=== PATIENT | male | born 1940 | race Caucasian/White ===

== ENCOUNTER 2017-12-13 07:42 | Emergency (ER) | payer MEDICARE, OTHER, SELFPAY ==
[2017-12-13] VITALS (18 sets, daily range): BP systolic 95–132; BP diastolic 53–70; PULSE 44–73; RESP 11–22; TEMP 36.5–36.8; O2SAT 94–100
--- NOTE | 2017-12-13 08:07 | DI.RAD_ITS ---
SYMPTOMS/DIAGNOSIS: CHEST PAIN AP PORTABLE CHEST: The lungs are free of infiltrate. There is no pleural effusion. The cardiovascular structures are intact. SUMMARY: There is no evidence of acute cardiopulmonary disease.
--- NOTE | 2017-12-13 08:07 | W.ED.GENAD ---
Discharge Plan Disposition Patient Disposition: [facility] Condition: Critical Discharge Details Chief Complaint: Chest Pain Clinical Impression: ST elevation (STEMI) myocardial infarction Primary Care Provider: Nabil Christianson ED Provider: Vishal Blevins Home Meds and New Rx's Prescriptions: No Action zinc 50 MG tablet 50 mg PO DAILY RF: 0 Discharge Data Discharge Date/Time-TO BE ENTERED AT DEPARTURE: 12/13/17 09:07 Medical Decision Making 8:15 -- ecg reviewed and patient pt seen immediately on my arrival to the emergency department at 8 AM. Patient in critical condition. Patient is normotensive and bradycardic 77-year-old male with family history of heart disease, notes his mother from heart disease in her 70s, former smoker, here with chest pain that started around 715 this morning. Pain is located in his left chest and feels like a dull ache. It is mild intensity. He had associated diaphoresis. ECG reviewed and interpreted by me: Market sinus bradycardia 43 bpm, [address] elevation noted in lead II, 3, aVF, T wave inversions with ST depressions noted in lead I, aVL, V2. V5 to V6 with biphasic T wave. I compared this to old EKG from 09/04/2012 and these findings were not present. Plan to obtain stat portable chest x-ray and if normal will give tpa, heparin bolus and gtt, plavix 600 and aspirin 325. Will contact [facility] [place] to arrange transportation. 8:21 -- cxr reviewed and interpreted by me: Normal mediastinum, no pneumothorx. Risk and benefits of TPA were discussed with the patient. Patient has no absolute contraindications to TPA administration. Patient provided informed consent to treat. TPA to be administered. 8:27 -- Spoke with hydraulic lift driver at [facility]. Hogan will accept the patient in transfer. -- [facility] not flying. Will arrange for ground transport. 8:47 -- Patient hypotensive with low dose nitro. SBP98. Nitro discontinued. Will give IVF bolus. Patient continues to be bradycardic with intermittent atrial fibrillation on monitor. --Patient transferred by development planner to [facility]. HPI General Mode of arrival: ambulatory. Date/Time Provider Initiated Documentation: 12/13/17 07:51. Limitations to Documentation: no limitations. Information obtained by: patient. HPI Narrative: 77-year-old male with history of former smoking, here with initial complaint of general malaise and possible cold, with chief complaint as determined later by nursing of chest pain. Patient notes that he felt chest pain around 715 this morning. Pain described as a dull ache. Rated 2/10. No modifiers. He had associated diaphoresis and generally did not feel well. No associated shortness of breath. Related Data Home Medications Medication Instructions Recorded Confirmed zinc 50 mg PO DAILY 09/04/12 12/13/17 Allergies Allergy/AdvReac Type Severity Reaction Status Date / Time tetracycline Allergy Unknown Unverified 12/13/17 09:14 General Stated Complaint: Chest Pain JERARDO: 2 Review of Systems Review of Systems All systems reviewed & are unremarkable except as noted in HPI and below Cardiovascular Reports chest pain, Denies syncope and Denies dyspnea Respiratory Denies dyspnea Neurologic Denies syncope [facility] Social History Smoking/Tobacco Use Status: Former Tobacco Use Exam Const General: cooperative and no acute distress HENMT Head: normocephalic and atraumatic Mouth: moist mucous membranes Eyes Conjunctivae: normal conjunctivae Sclera: normal sclerae EOM: EOM intact bilaterally Neck Neck: trachea midline and supple Resp Auscultation: clear to auscultation bilaterally, no rales, no rhonchi and no wheezes Cardio Jugular venous pressure: no JVD Rate: regular rate and not tachycardic Rhythm: regular rhythm GI Palpation: soft, not firm, no guarding, no masses, not rigid and nontender Skin General skin exam: no rashes or lesions noted Neuro General: alert, awake, oriented x3 and tone normal Extrem General: no calf tenderness bilaterally and no edema Psych Appearance: grossly normal Mental Status: mental status grossly normal Speech and Movement: speech and movement normal Course Vital Signs Pulse 49 L 12/13/17 07:50 Respiratory Rate 16 12/13/17 07:50 Blood Pressure 117/64 12/13/17 07:50 Pulse Oximetry 98 12/13/17 07:50 Pulse 49 L 12/13/17 07:50 Respiratory Rate 18 12/13/17 08:05 Respiratory Effort 12/13/17 08:05 Blood Pressure 117/64 12/13/17 07:50 Blood Pressure Position Supine 12/13/17 07:50 Pulse Oximetry 98 12/13/17 07:50 Oxygen Delivery Method Room Air 12/13/17 07:50 Oxygen Flow Rate 0 12/13/17 07:50 Pain Level 3 12/13/17 08:05 Comment 12/13/17 07:50 Critical Care Time Critical Care Time: Yes Total Critical Care Time: 40 Attestation: I spent greater than 40 minutes addressing this patient's immediate life threats
[2017-12-13] MEDS: Tenecteplase 50 MG KIT 45 MG IVP (08:10)
[2017-12-13 08:18] LABS: Abs Immature Grans 0.02 k/cumm (0.0-0.09); Absolute Basophil Count 0.01 k/cumm (0.0-0.2); Absolute Eosinophil Count 0.21 k/cumm (0.0-0.7); Absolute Lymphocyte Count 2.82 k/cumm (1.2-3.4); Absolute Monocyte Count 0.73 k/cumm (0.11-0.7); Absolute Neutrophil Count 3.16 k/cumm (1.2-6.7); Basophils % 0.1; HCT 42.4 % (40.0-50.0); HGB 14.8 g/dL (13.5-17.5); Immature Grans % 0.3; Lymphocytes % 40.6; Mean Corp. HGB Concentration 34.9 g/dL (32.0-36.0); Mean Corpuscular Hemoglobin 31.3 pg (27.0-33.0); Mean Corpuscular Volume 89.6 fL (80-95); Mean Platelet Volume 10.2 fL (8.0-11.0); Monocytes % 10.5; Neutrophils % 45.5; Platelet Count 162 x1000/uL (130-400); RBC 4.73 m/cumm (4.50-6.00); RBC Distribution Width 14.1 % (11.8-14.1); White Blood Cell Count 6.95 k/cumm (4.4-10.8)
[2017-12-13] MEDS: Aspirin 81 MG CHEW 324 MG CH (08:25)
--- NOTE | 2017-12-13 08:25 | ED.GENADUL_ITS ---
Discharge Plan Disposition Patient Disposition: [facility] Condition: Critical Discharge Details Chief Complaint: Chest Pain Clinical Impression: ST elevation (STEMI) myocardial infarction Primary Care Provider: Nabil Christianson ED Provider: Vishal Blevins Home Meds and New Rx's Prescriptions: No Action zinc 50 MG tablet 50 mg PO DAILY RF: 0 Discharge Data Discharge Date/Time-TO BE ENTERED AT DEPARTURE: 12/13/17 09:07 Medical Decision Making 8:15 -- ecg reviewed and patient pt seen immediately on my arrival to the emergency department at 8 AM. Patient in critical condition. Patient is normotensive and bradycardic 77-year-old male with family history of heart disease, notes his mother from heart disease in her 70s, former smoker, here with chest pain that started around 715 this morning. Pain is located in his left chest and feels like a dull ache. It is mild intensity. He had associated diaphoresis. ECG reviewed and interpreted by me: Market sinus bradycardia 43 bpm, [address] elevation noted in lead II, 3, aVF, T wave inversions with ST depressions noted in lead I, aVL, V2. V5 to V6 with biphasic T wave. I compared this to old EKG from 09/04/2012 and these findings were not present. Plan to obtain stat portable chest x-ray and if normal will give tpa, heparin bolus and gtt, plavix 600 and aspirin 325. Will contact [facility] cardiology to arrange transportation. 8:21 -- cxr reviewed and interpreted by me: Normal mediastinum, no pneumothorx. Risk and benefits of TPA were discussed with the patient. Patient has no absolute contraindications to TPA administration. Patient provided informed consent to treat. TPA to be administered. 8:27 -- Spoke with geospatial engineer at [facility]. Dr. Hogan will accept the patient in transfer. -- [facility] not flying. Will arrange for ground transport. 8:47 -- Patient hypotensive with low dose nitro. SBP98. Nitro discontinued. Will give IVF bolus. Patient continues to be bradycardic with intermittent atrial fibrillation on monitor. --Patient transferred by director of partnerships to [facility]. HPI General Mode of arrival: ambulatory . Date/Time Provider Initiated Documentation: 12/13/17 07:51 . Limitations to Documentation: no limitations . Information obtained by: patient . HPI Narrative: 77-year-old male with history of former smoking, here with initial complaint of general malaise and possible cold, with chief complaint as determined later by nursing of chest pain. Patient notes that he felt chest pain around 715 this morning. Pain described as a dull ache. Rated 2/10. No modifiers. He had associated diaphoresis and generally did not feel well. No associated shortness of breath. Related Data Home Medications Medication Instructions Recorded Confirmed zinc 50 mg PO DAILY 09/04/12 12/13/17 Allergies Allergy/AdvReac Type Severity Reaction Status Date / Time tetracycline Allergy Unknown Unverified 12/13/17 09:14 General Stated Complaint: Chest Pain JERARDO: 2 Review of Systems Review of Systems All systems reviewed & are unremarkable except as noted in HPI and below Cardiovascular Reports chest pain, Denies syncope and Denies dyspnea Respiratory Denies dyspnea Neurologic Denies syncope [facility] Social History Smoking/Tobacco Use Status: Former Tobacco Use Exam Const General: cooperative and no acute distress HENMT Head: normocephalic and atraumatic Mouth: moist mucous membranes Eyes Conjunctivae: normal conjunctivae Sclera: normal sclerae EOM: EOM intact bilaterally Neck Neck: trachea midline and supple Resp Auscultation: clear to auscultation bilaterally, no rales, no rhonchi and no wheezes Cardio Jugular venous pressure: no JVD Rate: regular rate and not tachycardic Rhythm: regular rhythm GI Palpation: soft, not firm, no guarding, no masses, not rigid and nontender Skin General skin exam: no rashes or lesions noted Neuro General: alert, awake, oriented x3 and tone normal Extrem General: no calf tenderness bilaterally and no edema Psych Appearance: grossly normal Mental Status: mental status grossly normal Speech and Movement: speech and movement normal Course Vital Signs Pulse 49 L 12/13/17 07:50 Respiratory Rate 16 12/13/17 07:50 Blood Pressure 117/64 12/13/17 07:50 Pulse Oximetry 98 12/13/17 07:50 Pulse 49 L 12/13/17 07:50 Respiratory Rate 18 12/13/17 08:05 Respiratory Effort 12/13/17 08:05 Blood Pressure 117/64 12/13/17 07:50 Blood Pressure Position Supine 12/13/17 07:50 Pulse Oximetry 98 12/13/17 07:50 Oxygen Delivery Method Room Air 12/13/17 07:50 Oxygen Flow Rate 0 12/13/17 07:50 Pain Level 3 12/13/17 08:05 Comment 12/13/17 07:50 Critical Care Time Critical Care Time: Yes Total Critical Care Time: 40 Attestation: I spent greater than 40 minutes addressing this patient's immediate life threats
[2017-12-13 08:39] LABS: ALT 98 U/L (12-78); AST 59 U/L (15-37); Albumin 3.6 g/dL (3.4-5.0); Alkaline Phosphatase 53 U/L (46-116); Anion Gap 8.8 mmol/L (3-11); BUN 29 mg/dL (7-18); Bilirubin, Total 0.5 mg/dL (0.2-1.0); CO2 26.2 mmol/L (21.0-32.0); CREATININE 1.35 mg/dL (0.70-1.30); Calcium 8.5 mg/dL (8.5-10.1); Chloride 105 mmol/L (98-107); Estimated GFR 51.52 (mL/min/1.73m2); Glucose 159 mg/dL (70-100); NT-proBNP 51 pg/mL; PTT Activated 23.3 sec (21.0-31.4); Potassium 3.5 mmol/L (3.5-5.1); Sodium 140 mmol/L (136-145); Total Protein 6.8 g/dL (6.4-8.2); Troponin I < 0.02 ng/mL (0.00-0.06)
== END 2017-12-13 09:07 | disposition short-term general hospital (02) ==
PROVIDERS: Emergency Provider Student in an Organized Health Care Education/Training Program; PCP Family Medicine
DX: I21.21 ST elevation (STEMI) myocardial infarction involving left circumflex coronary artery (principal); R00.1 Bradycardia, unspecified; I48.91 Unspecified atrial fibrillation; Z87.891 Personal history of nicotine dependence
CPT/HCPCS: 36415; 80053; 93005; 96365; 96368; 96375; 99291; 71045; 83880; 84484; 85025; 85730; 93010; J3101

== ENCOUNTER 2018-01-28 09:26 | Outpatient (CLI) | payer MEDICARE, OTHER, SELFPAY | END 2018-01-28 09:46 | PROVIDERS: PCP Family Medicine; Visit Provider Internal Medicine Interventional Cardiology | DX: I25.810 Atherosclerosis of coronary artery bypass graft(s) without angina pectoris (principal); I25.2 Old myocardial infarction; R00.1 Bradycardia, unspecified; I48.91 Unspecified atrial fibrillation; Z95.1 Presence of aortocoronary bypass graft; R00.8 Other abnormalities of heart beat | CPT/HCPCS: 99214; 93005; 93010; 99213 ==

== ENCOUNTER 2018-02-13 16:28 | Outpatient (RCR) | payer MEDICARE, SELFPAY | END 2018-03-14 23:59 | disposition home or self-care (01) | LOC: CR 16:28 | PROVIDERS: PCP Family Medicine; Visit Provider Family Medicine | DX: Z51.89 Encounter for other specified aftercare (principal) ==

== ENCOUNTER 2018-03-13 10:00 | Outpatient (RCR) | payer MEDICARE, OTHER, SELFPAY | END 2018-03-14 23:59 | disposition home or self-care (01) | LOC: CR 10:00 | PROVIDERS: PCP Family Medicine; Visit Provider Family Medicine | DX: I25.2 Old myocardial infarction (principal); Z95.1 Presence of aortocoronary bypass graft; Z51.89 Encounter for other specified aftercare | CPT/HCPCS: S9472 ==

== ENCOUNTER 2018-04-04 17:39 | Emergency (ER) | payer MEDICARE, OTHER, SELFPAY ==
[2018-04-04 17:43] VITALS: BP 110/64; PULSE 82; RESP 16; TEMP 37; O2SAT 96
--- NOTE | 2018-04-04 18:03 | W.ED.GENAD ---
Discharge Plan Disposition Patient Disposition: HOME Condition: Stable Discharge Details Chief Complaint: Laceration Clinical Impression: Laceration of hand, left Primary Care Provider: Nabil Christianson ED Provider: Rashad Randhawa Home Meds and New Rx's Prescriptions: Continued atorvastatin 80 mg tablet 80 mg PO DAILY Qty: 90 RF: 4 metoprolol succinate 25 mg tablet extended release 24 hr 25 mg PO DAILY RF: 0 aspirin 81 mg tablet,chewable 81 mg PO DAILY RF: 0 clopidogrel 75 mg tablet 75 mg PO DAILY Qty: 90 RF: 4 zinc 50 MG tablet 50 mg PO DAILY RF: 0 Discharge Instructions Instructions: Skin Adhesive Care (ED) Medical Decision Making 77 yo male who is on asa and plavix after having cabg last december comes in with bleeding after cutting his left index and middle fingers. Was unable to control bleeding so came here. Bleeding is controlled prior to my exam, has 1cm superficial laceration to both distal fingers mentioned on radial surface. Full rom and normal sensation, doubt tendon or nerve injury. I closed the wounds with dermabond, will d/c home Differential Diagnosis abrasion, lac HPI General Mode of arrival: ambulatory. Date/Time Provider Initiated Documentation: 04/04/18 17:39. Limitations to Documentation: no limitations. Information obtained by: patient. History of Present Illness 77 year old M presents to the emergency department with the chief complaint of left index and middle finger, described as mild, with intensity rated at 2. Quality is described as aching, and is localized to the left and upper extremity. Patient reports no radiation. Patient started experiencing this hour(s) (1) and it has been constant. No relieving factors improve symptom(s), No exacerbating factors reported . Patient notes no other symptoms.. Patient did receive the following treatments prior to arrival, none Related Data Home Medications Medication Instructions Recorded Confirmed zinc 50 mg PO DAILY 09/04/12 04/04/18 aspirin 81 mg chewable tablet 81 mg PO DAILY 01/25/18 04/04/18 atorvastatin 80 mg tablet 80 mg PO DAILY #90 tab 01/29/18 04/04/18 clopidogrel 75 mg tablet 75 mg PO DAILY #90 tab 01/31/18 04/04/18 metoprolol succinate ER 25 mg 25 mg PO DAILY tab 03/15/18 04/04/18 tablet,extended release 24 hr Previous Rx's Medication Instructions Recorded atorvastatin 80 mg tablet 80 mg PO DAILY #90 tab 01/29/18 clopidogrel 75 mg tablet 75 mg PO DAILY #90 tab 01/31/18 Allergies Allergy/AdvReac Type Severity Reaction Status Date / Time tetracycline Allergy Unknown Unverified 03/15/18 14:26 General Stated Complaint: Laceration JERARDO: 4 Review of Systems Review of Systems All systems reviewed & are unremarkable except as noted in HPI and below Constitutional Denies chills and Denies fever(s) ENT Denies change in voice Cardiovascular Denies chest pain and Denies dyspnea Respiratory Denies cough and Denies dyspnea Gastrointestinal Denies abdominal pain, Denies nausea and Denies vomiting Genitourinary Denies dysuria Musculoskeletal Denies joint swelling Integumentary/Breasts Denies rash [facility] Social History Smoking and Tabacco status: Former Tobacco Use Exam Const General: no acute distress Orientation: alert HENMT Head: normal to inspection Ears: external ears normal General nose exam: external nose normal Mouth: moist mucous membranes Eyes General: appearance normal, both eyes and all related structures Neck Neck: normal visual inspection Resp Effort & Inspection: normal respiratory effort and able to speak in complete sentences Cardio Rate: regular rate Skin General skin exam: no rashes or lesions noted Neuro General: alert and oriented x3 Extrem General: full ROM and normal capillary refill Psych Mental Status: mental status grossly normal Course Vital Signs Temperature 37.0 C 04/04/18 17:43 Pulse 82 04/04/18 17:43 Respiratory Rate 16 04/04/18 17:43 Blood Pressure 110/64 04/04/18 17:43 Pulse Oximetry 96 04/04/18 17:43 Temperature 37.0 C 04/04/18 17:43 Temperature Source Skin 04/04/18 17:43 Pulse 82 04/04/18 17:43 Respiratory Rate 16 04/04/18 17:43 Respiratory Effort Non-Labored 04/04/18 17:47 Blood Pressure 110/64 04/04/18 17:43 Blood Pressure Position Sitting 04/04/18 17:43 Pulse Oximetry 96 04/04/18 17:43 Oxygen Delivery Method Room Air 04/04/18 17:43 Oxygen Flow Rate 0 04/04/18 17:43 Procedures Laceration Laceration 1: Site: hand Side (If applicable): left Size (cm): 1 Description: linear Depth: simple, single layer Pre-repair: irrigated extensively Skin layer closed with: other (skin adhesive)
--- NOTE | 2018-04-04 18:07 | ED.GENADUL_ITS ---
Discharge Plan Disposition Patient Disposition: HOME Condition: Stable Discharge Details Chief Complaint: Laceration Clinical Impression: Laceration of hand, left Primary Care Provider: Nabil Christianson ED Provider: Rashad Randhawa Home Meds and New Rx's Prescriptions: Continued atorvastatin 80 mg tablet 80 mg PO DAILY Qty: 90 RF: 4 metoprolol succinate 25 mg tablet extended release 24 hr 25 mg PO DAILY RF: 0 aspirin 81 mg tablet,chewable 81 mg PO DAILY RF: 0 clopidogrel 75 mg tablet 75 mg PO DAILY Qty: 90 RF: 4 zinc 50 MG tablet 50 mg PO DAILY RF: 0 Discharge Instructions Instructions: Skin Adhesive Care (ED) Medical Decision Making 77 yo male who is on asa and plavix after having cabg last december comes in with bleeding after cutting his left index and middle fingers. Was unable to control bleeding so came here. Bleeding is controlled prior to my exam, has 1cm superficial laceration to both distal fingers mentioned on radial surface. Full rom and normal sensation, doubt tendon or nerve injury. I closed the wounds with dermabond, will d/c home Differential Diagnosis abrasion, lac HPI General Mode of arrival: ambulatory . Date/Time Provider Initiated Documentation: 04/04/18 17:39 . Limitations to Documentation: no limitations . Information obtained by: patient . History of Present Illness 77 year old M presents to the emergency department with the chief complaint of left index and middle finger, described as mild, with intensity rated at 2. Quality is described as aching, and is localized to the left and upper extremity. Patient reports no radiation. Patient started experiencing this hour(s) (1) and it has been constant. No relieving factors improve symptom(s), No exacerbating factors reported . Patient notes no other symptoms.. Patient did receive the following treatments prior to arrival, none Related Data Home Medications Medication Instructions Recorded Confirmed zinc 50 mg PO DAILY 09/04/12 04/04/18 aspirin 81 mg chewable tablet 81 mg PO DAILY 01/25/18 04/04/18 atorvastatin 80 mg tablet 80 mg PO DAILY #90 tab 01/29/18 04/04/18 clopidogrel 75 mg tablet 75 mg PO DAILY #90 tab 01/31/18 04/04/18 metoprolol succinate ER 25 mg 25 mg PO DAILY tab 03/15/18 04/04/18 tablet,extended release 24 hr Previous Rx's Medication Instructions Recorded atorvastatin 80 mg tablet 80 mg PO DAILY #90 tab 01/29/18 clopidogrel 75 mg tablet 75 mg PO DAILY #90 tab 01/31/18 Allergies Allergy/AdvReac Type Severity Reaction Status Date / Time tetracycline Allergy Unknown Unverified 03/15/18 14:26 General Stated Complaint: Laceration JERARDO: 4 Review of Systems Review of Systems All systems reviewed & are unremarkable except as noted in HPI and below Constitutional Denies chills and Denies fever(s) ENT Denies change in voice Cardiovascular Denies chest pain and Denies dyspnea Respiratory Denies cough and Denies dyspnea Gastrointestinal Denies abdominal pain, Denies nausea and Denies vomiting Genitourinary Denies dysuria Musculoskeletal Denies joint swelling Integumentary/Breasts Denies rash [facility] Social History Smoking and Tabacco status: Former Tobacco Use Exam Const General: no acute distress Orientation: alert HENMT Head: normal to inspection Ears: external ears normal General nose exam: external nose normal Mouth: moist mucous membranes Eyes General: appearance normal, both eyes and all related structures Neck Neck: normal visual inspection Resp Effort & Inspection: normal respiratory effort and able to speak in complete sentences Cardio Rate: regular rate Skin General skin exam: no rashes or lesions noted Neuro General: alert and oriented x3 Extrem General: full ROM and normal capillary refill Psych Mental Status: mental status grossly normal Course Vital Signs Temperature 37.0 C 04/04/18 17:43 Pulse 82 04/04/18 17:43 Respiratory Rate 16 04/04/18 17:43 Blood Pressure 110/64 04/04/18 17:43 Pulse Oximetry 96 04/04/18 17:43 Temperature 37.0 C 04/04/18 17:43 Temperature Source Skin 04/04/18 17:43 Pulse 82 04/04/18 17:43 Respiratory Rate 16 04/04/18 17:43 Respiratory Effort Non-Labored 04/04/18 17:47 Blood Pressure 110/64 04/04/18 17:43 Blood Pressure Position Sitting 04/04/18 17:43 Pulse Oximetry 96 04/04/18 17:43 Oxygen Delivery Method Room Air 04/04/18 17:43 Oxygen Flow Rate 0 04/04/18 17:43 Procedures Laceration Laceration 1: Site: hand Side (If applicable): left Size (cm): 1 Description: linear Depth: simple, single layer Pre-repair: irrigated extensively Skin layer closed with: other (skin adhesive)
[2018-04-04 18:10] VITALS: BP 110/64; PULSE 82; RESP 16; TEMP 37; O2SAT 96
== END 2018-04-04 18:12 | disposition home or self-care (01) ==
PROVIDERS: Emergency Provider Emergency Medicine; PCP Family Medicine
DX: S61.211A Laceration without foreign body of left index finger without damage to nail, initial encounter (principal); S61.213A Laceration without foreign body of left middle finger without damage to nail, initial encounter; W26.0XXA Contact with knife, initial encounter; Z79.01 Long term (current) use of anticoagulants
CPT/HCPCS: 12001

== ENCOUNTER 2018-04-10 10:00 | Outpatient (RCR) | payer MEDICARE, OTHER, SELFPAY | END 2018-04-11 23:59 | disposition home or self-care (01) | LOC: CR 10:00 | PROVIDERS: PCP Family Medicine; Visit Provider Family Medicine | DX: I25.2 Old myocardial infarction (principal); Z95.1 Presence of aortocoronary bypass graft; Z51.89 Encounter for other specified aftercare | CPT/HCPCS: S9472 ==

== ENCOUNTER 2018-05-10 12:51 | Outpatient (RCR) | payer MEDICARE, OTHER, SELFPAY | END 2018-05-12 23:59 | disposition home or self-care (01) | LOC: CR 12:51 | PROVIDERS: PCP Family Medicine; Visit Provider Family Medicine | DX: I25.2 Old myocardial infarction (principal); Z95.1 Presence of aortocoronary bypass graft; Z51.89 Encounter for other specified aftercare | CPT/HCPCS: S9472 ==

== ENCOUNTER 2018-05-24 10:00 | Outpatient (RCR) | payer MEDICARE, OTHER, SELFPAY | END 2018-06-11 23:59 | disposition home or self-care (01) | LOC: CR 10:00 | PROVIDERS: PCP Family Medicine; Visit Provider Family Medicine | DX: I25.2 Old myocardial infarction (principal); Z95.1 Presence of aortocoronary bypass graft; Z51.89 Encounter for other specified aftercare | CPT/HCPCS: S9472 ==

== ENCOUNTER 2020-01-22 18:49 | Outpatient (REF) | payer MEDICARE, OTHER, SELFPAY ==
[2020-01-22 21:27] LABS: Hemoglobin A1C 5.4 % (<5.7)
[2020-01-22 22:14] LABS: ALT 32 U/L (16-63); AST 22 U/L (15-37); Albumin 4.1 g/dL (3.4-5.0); Alkaline Phosphatase 98 U/L (46-116); Anion Gap 8.2 mmol/L (3-11); BUN 21 mg/dL (7-18); Bilirubin, Total 0.6 mg/dL (0.2-1.0); CO2 28.8 mmol/L (21.0-32.0); CREATININE 1.23 mg/dL (0.70-1.30); Calcium 8.9 mg/dL (8.5-10.1); Calculated LDL 61 mg/dL (<100); Chloride 105 mmol/L (98-107); Cholesterol 114 mg/dL (<200); Estimated GFR 57.06 (mL/min/1.73m2); Glucose 99 mg/dL (74-106); HDL Cholesterol 34 mg/dL (40-60); Potassium 4.5 mmol/L (3.5-5.1); Sodium 142 mmol/L (136-145); Triglyceride 97 mg/dL (<150)
== END 2020-01-22 19:09 ==
LOC: LBN 18:49
PROVIDERS: PCP Nurse Practitioner Family; Visit Provider Nurse Practitioner Family
DX: R73.01 Impaired fasting glucose (principal); I25.10 Atherosclerotic heart disease of native coronary artery without angina pectoris
CPT/HCPCS: 80053; 80061; 83036

== ENCOUNTER 2020-04-08 11:14 | Outpatient (CLI) | payer MEDICARE, OTHER, SELFPAY ==
--- NOTE | 2020-04-08 11:30 | RT.EKG_ITS ---
APPROVED REPORT Exam: Resting ECG Patient Location: O HR:95 bpm ECG Measurements Heart Rate 95 AXIS SC 179 P 57 QRSd 96 QRS 207 QT 388 T [id number] QTc 488 Conclusion Sinus rhythm...normal P axis, V-rate 50- 99 Multiple ventricular premature complexes...V complexes w/ short R-R intervls Inferior infarct, old...Q >35mS, II III aVF Abnormal lateral Q waves...Q >35mS, V5 V6 I aVL
== END 2020-04-08 11:15 | disposition home or self-care (01) ==
LOC: DI.CARD 11:36
PROVIDERS: PCP Nurse Practitioner Family; Referring Provider Nurse Practitioner Family; Visit Provider Internal Medicine Cardiovascular Disease
DX: I49.3 Ventricular premature depolarization (principal)
CPT/HCPCS: 93010

== ENCOUNTER → 2020-04-08 11:14 | Outpatient (BNVA) | payer MEDICARE, OTHER, SELFPAY | PROVIDERS: PCP Nurse Practitioner Family; Referring Provider Nurse Practitioner Family; Visit Provider Internal Medicine Cardiovascular Disease | DX: I25.10 Atherosclerotic heart disease of native coronary artery without angina pectoris (principal); I25.2 Old myocardial infarction; Z95.1 Presence of aortocoronary bypass graft | CPT/HCPCS: 99202; 99214 ==

== ENCOUNTER 2021-03-05 12:41 | Emergency (ER) | payer MEDICARE, OTHER, SELFPAY ==
[2021-03-05 12:51] VITALS: BP 135/82; PULSE 95; RESP 16; TEMP 36; O2SAT 99
--- NOTE | 2021-03-05 12:56 | W.ED.GENAD ---
Discharge Plan Disposition Patient Disposition: HOME Condition: Improving Discharge Details Clinical Impression: Biliary colic, Acute cholecystitis Primary Care Provider: Sulema Rai ED Provider: Stephie Estrella Home Meds and New Rx's Prescriptions: New amoxicillin-pot clavulanate [Augmentin] 875-125 mg tablet 1 tab PO BID 7 Days Qty: 14 RF: 0 Continued aspirin 81 mg tablet,chewable 81 mg PO DAILY RF: 0 atorvastatin 80 mg tablet 80 mg PO DAILY Qty: 90 RF: 4 zinc 50 MG tablet 50 mg PO DAILY RF: 0 Discharge Instructions Instructions: Cholecystitis (ED), Biliary Colic (ED) Additional Instructions: Your lab work and imaging today noted evidence what is presumed to be an acute on chronic gallbladder infection. Because your pain is improved, you have no fever and you have a normal white blood cell count, this can be managed with antibiotics at this time with plan to schedule a procedure to remove your gallbladder called a cholecystectomy at a later date. Avoid fried or high fat foods until follow-up with surgery. A prescription for antibiotics has been sent electronically to your [facility] pharmacy in [place]. You were given 1 dose of antibiotics here. Take a second dose later today before bedtime and then take 1 dose twice daily starting tomorrow. Call the general surgery office on Sunday morning to confirm your follow-up appointment for this week. Return immediately to the emergency department if you develop any worsening or new concerning symptoms such as fever, persistent vomiting, worsening pain or any other concerns. Referrals: Sofie Haney DO [OSTEOPATHIC DOCTOR] - Discharge Data Discharge Date/Time-TO BE ENTERED AT DEPARTURE: 03/05/21 16:57 Discharge Physician: Stephie Estrella Medical Decision Making 80-year-old male with a history of coronary artery disease, STEMI, CABG x4 presents with 3 episodes of upper abdominal pain with radiation to his lower abdomen occurring over the past month, mostly after eating. Pain currently near resolved. Vitals within normal limits. Patient appears comfortable and nontoxic. He does have tenderness to palpation to his right upper quadrant, epigastrium and left upper quadrant. He has some guarding in the upper abdomen. There is no rigidity or distention. Differential diagnosis includes gastritis, PUD, GERD, biliary colic, cholecystitis, pancreatitis,etc. considering patient's cardiac history, will obtain troponin and EKG in addition to CT chest abdomen and pelvis, screening labs and give Pepcid, GI cocktail, fluids and reassess. Labs and imaging reviewed. Normal white blood cell count at 7. T bili 1.4. AST 128. ALT 107. Alk phos 165. Troponin negative. Lipase within normal limits. Urinalysis negative for infection or blood. US abdomen: IMPRESSION: Gallstones in the gallbladder. Pericholecystic fluid. Gallbladder wall 5.1 mm. Findings consistent with acute cholecystitis. CT abdomen and pelvis notes: IMPRESSION: 1. CT findings consistent with acute cholecystitis as identified on the ultrasound from earlier in the day. 2. Dilatation of both renal pelves. This may be hydronephrosis. Prominent extrarenal pelves cannot be excluded. Nonemergent nuclear medicine renal scan may be useful for further evaluation. 3. Enlarged prostate gland impinging upon the base of the urinary bladder. There is diffuse thickening of the wall of the urinary bladder. This may be due to bladder outlet obstruction, neurogenic bladder, neoplasm. Please correlate clinically. 4. Enlarged right inguinal lymph node. 5. Left inguinal hernia containing a short segment of colon. No obstruction is present. 6. Small infiltrate seen in the lower lobes and left lingula which may represent atelectasis or pneumonia. 7. Small right pleural effusion. Patient reassessed and he remains asymptomatic without pain. Patient was given results of imaging. His urinalysis was negative for infection and there has been no change in his urinary output. Case and results discussed with Dr. Brito --as patient's pain is resolved, he has no fever or white blood cell count, can reasonably be discharged home with plan for follow-up with surgery this week. Recommended obtaining a Direct bilirubin which was 0.7. Recommends Augmentin for [address] Brito and I both discussed plan with patient's Halie over the phone and she is agreeable with plan for home. Advised to return immediately if patient develops fever or worsening pain. Patient placed on surgery follow-up list. Usual and customary return precautions given prior to discharge. Medical Records Medical records reviewed: Yes I reviewed the patient's medical records. Imaging Data Radiologic Study: Radiologist's impression: US Abdomen, Limited; Right Upper Quadrant Exam date and time: 03/05/2021 1:20 PM Age: 80 years old Clinical indication: Abdominal pain; Epigastric TECHNIQUE: Imaging protocol: US abdomen. Real time ultrasound with image documentation. Limited exam focused on the right upper quadrant. COMPARISON: No relevant prior studies available. FINDINGS: Liver: There is a diffuse increase in hepatic parenchymal echogenicity, consistent with fatty infiltration. Liver measures 13 cm Gallbladder: Gallstones in the gallbladder. Pericholecystic fluid. Gallbladder wall 5.1 mm. Findings consistent with acute cholecystitis. Cystic duct is 9 mm Common bile duct: Common bile duct 2.9 mm Pancreas: The pancreas is poorly-visualized due to overlying bowel gas.. Right kidney: Cystic structure in the right kidney 1.6 x 1.9 cm. Right kidney 10.7 cm. Mild hydronephrosis of the right kidney IMPRESSION: Gallstones in the gallbladder. Pericholecystic fluid. Gallbladder wall 5.1 mm. Findings consistent with acute cholecystitis. Mild hydronephrosis. CT Chest With Contrast; Diagnostic Exam date and time: 03/05/2021 1:20 PM Age: 80 years old Clinical indication: Other: Epigastric; Sternal or substernal pain; Prior surgery TECHNIQUE: Imaging protocol: Diagnostic computed tomography of the chest with contrast. 3D rendering (Not supervised by radiologist): MIP and/or 3D reconstructed images were created by the technologist. COMPARISON: CR XR PORTABLE CHEST AP 12/13/2017 8:17 AM FINDINGS: Lungs: Mild opacities in the lingula and both lower lobes may represent atelectasis or pneumonia.. Pleural spaces: Small right pleural effusion. Heart: Unremarkable. No cardiomegaly. No pericardial effusion. Pulmonary arteries: No evidence of pulmonary embolus to the segmental level. Aorta: No aneurysm of the aorta. No dissection of the aorta. Lymph nodes: Unremarkable. No enlarged lymph nodes. Bones/joints: Median sternotomy. Soft tissues: Unremarkable. IMPRESSION: 1. No evidence of pulmonary embolus to the segmental level. 2. No aneurysm of the aorta. 3. No dissection of the aorta. 4. Mild opacities in the lingula and both lower lobes may represent atelectasis or pneumonia.. 5. Small right pleural effusion. CT Abdomen And Pelvis With Contrast Exam date and time: 03/05/2021 1:20 PM Age: 80 years old Clinical indication: Other: Epigastric; Sternal or substernal pain; Prior surgery TECHNIQUE: Imaging protocol: Computed tomography of the abdomen and pelvis with contrast. 3D rendering (Not supervised by radiologist): MIP and/or 3D reconstructed images were created by the technologist. COMPARISON: CR XR PORTABLE CHEST AP 12/13/2017 8:17 AM FINDINGS: Liver: Normal. No mass. Gallbladder and bile ducts: Gallbladder wall thickening. Enhancing gallbladder wall. Pericholecystic inflammatory changes. Findings consistent with acute cholecystitis. These findings have already been discussed with Dr. Estrella after the abdominal ultrasound. Pancreas: Normal. No ductal dilation. Spleen: Normal. No splenomegaly. Adrenal glands: Normal. No mass. Kidneys and ureters: Dilatation of both collecting systems may reflect hydronephrosis. The proximal ureters are not dilated. The distal ureters are mildly dilated.. 2 cm simple cyst upper pole right kidney . No follow-up imaging recommended . Stomach and bowel: Unremarkable. No obstruction. No mucosal thickening. Appendix: No evidence of appendicitis. Intraperitoneal space: Unremarkable. No free air. No significant fluid collection. Vasculature: Unremarkable. No abdominal aortic aneurysm. Lymph nodes: 3.3 by 2.6 cm soft tissue density in the right groin. Series 4, image 122. Findings consistent with enlarged lymph node Urinary bladder: The bladder wall measures five mm. This is nonspecific and may represent inflammation or infection. Neoplastic process and neurogenic bladder are included in the differential. Reproductive: Unremarkable as visualized. Bones/joints: Unremarkable. No acute fracture. Soft tissues: Left inguinal hernia contains a loop of colon. Series 4, image 114. No obstruction. . IMPRESSION: 1. Gallbladder wall thickening. Enhancing gallbladder wall. Pericholecystic inflammatory changes. Findings consistent with acute cholecystitis. These findings have already been discussed with Dr. Estrella after the abdominal ultrasound. 2. Dilatation of both collecting systems may reflect hydronephrosis. The proximal ureters are not dilated. The distal ureters are mildly dilated.. 3. The bladder wall measures five mm. This is nonspecific and may represent inflammation or infection. Neoplastic process and neurogenic bladder are included in the differential. . 4. Left inguinal hernia contains a loop of colon. Series 4, image 114. No obstruction. 5. 3.3 by 2.6 cm soft tissue density in the right groin. Series 4, image 122. Findings consistent with enlarged lymph node. Lab Data Lab results reviewed: Yes I reviewed the patient's lab results. Labs: Laboratory Tests Range/Units 03/05/21 03/05/21 03/05/21 12:59 13:36 13:36 WBC (4.4-10.8) 10^3/uL 7.65 RBC (4.36-5.78) 10^6/uL 4.90 Hgb (13.5-17.5) g/dL 14.6 Hct (40.0-50.0) % 43.6 MCV (80-95) fL 89.0 MCH (27.0-33.0) pg 29.8 MCHC (32.0-36.0) % 33.5 RDW (11.8-14.1) % 13.1 Plt Count (130-400) 10^3/uL 172 MPV (8.0-11.0) fL 10.4 Immature Gran % 0.5 Neutrophils % 80.8 Lymphocytes % 9.5 Monocytes % 7.5 Eosinophils % 1.3 Basophils % 0.4 Nucleated RBC % % 0 Absolute Neutrophils (1.2-6.7) 10^3/uL 6.18 Absolute Lymphocytes (1.2-3.4) 10^3/uL 0.73 L Absolute Monocytes (0.1-0.8) 10^3/uL 0.57 Absolute Eosinophils (0.0-0.7) 10^3/uL 0.10 Absolute Basophils (0.0-0.2) 10^3/uL 0.03 Sodium (136-145) mmol/L 139 Potassium (3.5-5.1) mmol/L 4.2 Chloride (98-107) mmol/L 104 Carbon Dioxide (21.0-32.0) mmol/L 28.0 Anion Gap (3-11) mmol/L 7.0 BUN (7-18) mg/dL 22 H Creatinine (0.70-1.30) mg/dL 1.3 Estimated GFR/1.73 m2 (mL/min/1.73m2) 53.39 Glucose (74-106) mg/dL 140 H Calcium (8.5-10.1) mg/dL 8.9 Magnesium (1.8-2.4) mg/dL 2.0 Total Bilirubin (0.2-1.0) mg/dL 1.4 H Conjugated Bilirubin (0.0-0.2) mg/dL AST (15-37) U/L 128 H ALT (16-63) U/L 107 H Alkaline Phosphatase (46-116) U/L 165 H Troponin I (<or=60) ng/L < 50 Total Protein (6.4-8.2) g/dL 7.5 Albumin (3.4-5.0) g/dL 3.6 Lipase (73-393) U/L 168 Urine Color (Yellow) Yellow Urine Clarity (Clear) Clear Urine pH (5-8) 5.5 Ur Specific [place] (1.005-1.025) >= 1.030 H Urine Protein (Negative) mg/dL Negative Urine Ketones (Negative) mg/dL Negative Urine Blood (Negative) Negative Urine Nitrite (Negative) Negative Urine Bilirubin (Negative) Negative Urine Urobilinogen (Up TO 0.2) EU/dL 1.0 H Ur Leukocyte Esterase (Negative) Negative Urine Glucose (Negative) mg/dL Negative Range/Units 03/05/21 13:36 WBC (4.4-10.8) 10^3/uL RBC (4.36-5.78) 10^6/uL Hgb (13.5-17.5) g/dL Hct (40.0-50.0) % MCV (80-95) fL MCH (27.0-33.0) pg MCHC (32.0-36.0) % RDW (11.8-14.1) % Plt Count (130-400) 10^3/uL MPV (8.0-11.0) fL Immature Gran % Neutrophils % Lymphocytes % Monocytes % Eosinophils % Basophils % Nucleated RBC % % Absolute Neutrophils (1.2-6.7) 10^3/uL Absolute Lymphocytes (1.2-3.4) 10^3/uL Absolute Monocytes (0.1-0.8) 10^3/uL Absolute Eosinophils (0.0-0.7) 10^3/uL Absolute Basophils (0.0-0.2) 10^3/uL Sodium (136-145) mmol/L Potassium (3.5-5.1) mmol/L Chloride (98-107) mmol/L Carbon Dioxide (21.0-32.0) mmol/L Anion Gap (3-11) mmol/L BUN (7-18) mg/dL Creatinine (0.70-1.30) mg/dL Estimated GFR/1.73 m2 (mL/min/1.73m2) Glucose (74-106) mg/dL Calcium (8.5-10.1) mg/dL Magnesium (1.8-2.4) mg/dL Total Bilirubin (0.2-1.0) mg/dL Conjugated Bilirubin (0.0-0.2) mg/dL 0.7 H AST (15-37) U/L ALT (16-63) U/L Alkaline Phosphatase (46-116) U/L Troponin I (<or=60) ng/L Total Protein (6.4-8.2) g/dL Albumin (3.4-5.0) g/dL Lipase (73-393) U/L Urine Color (Yellow) Urine Clarity (Clear) Urine pH (5-8) Ur Specific [place] (1.005-1.025) Urine Protein (Negative) mg/dL Urine Ketones (Negative) mg/dL Urine Blood (Negative) Urine Nitrite (Negative) Urine Bilirubin (Negative) Urine Urobilinogen (Up TO 0.2) EU/dL Ur Leukocyte Esterase (Negative) Urine Glucose (Negative) mg/dL ECG Data Attestation: I personally reviewed and interpreted this ECG (s) as follows: Interpretation: rate of 79, sinus, Q waves inferior leads. No STEMI. HPI General Mode of arrival: ambulatory. Date/Time Provider Initiated Documentation: 03/05/21 12:42. Limitations to Documentation: no limitations. Information obtained by: patient. HPI Narrative: Patient is a 80-year-old male with a history of coronary artery disease, [place], CABG present x4, presents for 3 episodes of upper abdominal pain for the past month. Patient states he feels that each episode was related to food, occurring after eating a butterscotch candy, chocolate and then chicken. Patient states he ate a butterscotch candy around 11 AM this morning and then shortly after developed sharp right and left upper quadrant abdominal pain with dull epigastric pain radiating down to his lower abdomen. He states the pain is currently near resolved. He admits to some nausea earlier with the pain. He states the 2 other episodes felt similar in pain but without nausea. He states he has taken Pepto-Bismol for this pain in the past without relief. He denies taking any other medication for this pain. He denies any pain or nausea, vomiting or change in bowel habits in between these episodes and denies any diarrhea, constipation, rectal bleeding, urinary symptoms, fever, recent antibiotics, chest pain, shortness of breath, cough or sore throat. Patient states he came here today because his was concerned about his symptoms and wanted him to be evaluated. Related Data Home Medications Medication Instructions Recorded Confirmed zinc 50 mg PO DAILY 09/04/12 03/06/21 aspirin 81 mg chewable tablet 81 mg PO DAILY 01/25/18 03/06/21 atorvastatin 80 mg tablet 80 mg PO DAILY #90 tab 02/24/21 03/06/21 amoxicillin-pot clavulanate 1 tab PO BID 7 Days #14 tab 03/05/21 03/06/21 [Augmentin] Previous Rx's Medication Instructions Recorded atorvastatin 80 mg tablet 80 mg PO DAILY #90 tab 02/24/21 amoxicillin-pot clavulanate 1 tab PO BID 7 Days #14 tab 03/05/21 [Augmentin] Allergies Allergy/AdvReac Type Severity Reaction Status Date / Time tetracycline Allergy Unknown Verified 03/06/21 08:57 General Stated Complaint: Abd Prob JERARDO: 3 Review of Systems All systems reviewed & are unremarkable except as noted in HPI and below Constitutional Constitutional: Reports as per HPI, Denies chills and Denies fever(s) Eyes Eyes: Denies blurry vision ENT Ears, Nose, Mouth, and Throat: Denies dizziness, Denies sore throat and Denies throat swelling Cardiovascular Cardiovascular: Denies chest pain and Denies dyspnea Respiratory Respiratory: Denies cough and Denies dyspnea Gastrointestinal Gastrointestinal: Reports abdominal pain, Denies diarrhea, Reports nausea and Denies vomiting Genitourinary Genitourinary: Denies hematuria and Denies dysuria Musculoskeletal Musculoskeletal: Denies back pain and Denies numbness Integumentary/Breasts Skin/Breast: Denies lesions and Denies rash Neurologic Neurologic: Denies dizziness, Denies localized weakness and Denies numbness Allergic/Immunologic Allergic/Immunologic: Denies throat swelling PFSH All Active Problems (Updated 03/06/21 @ 11:20 by Chilo Lay MD) Left against medical advice (Acute) Biliary colic (Acute) Acute cholecystitis (Acute) Coronary artery disease (Chronic) STEMI 2018 s/p CABG x 4 BPH (benign prostatic hyperplasia) (Chronic) Medical History STEMI (ST elevation myocardial infarction) (~12/2017) Surgical History S/P CABG x 4 (12/14/17) ZAMUDIO?LAD, SVG?RCA, SVG skip grafted D1?OM S/P medial meniscus repair of right knee (09/10/12) Family History Mother , early 70s from [place] Heart disease Myocardial infarction Father Lung cancer Sister Heart disease Hyperlipidemia Hypertension Cancer Unknown type Sister No problems noted. Sister No problems noted. Maternal Grandfather No problems noted. Maternal Grandmother No problems noted. Paternal Grandfather No problems noted. Paternal Grandmother No problems noted. Social History Smoking/Tobacco Use Status: Former Tobacco Use Smoking risk assessment performed?: Yes Alcohol Intake: current Alcohol Intake frequency: a few times a month Drug use: Never Substance use type: does not use Caregiver/Support person: No Housing: house Communication Needs: None Pets and animals: Yes Pets and animals: cat(s) Sexually active: No Do you think of yourself as: straight/heterosexual Current gender identity: male What is your relationship status?: How often do you talk on the phone with friends or family?: never How often do you get together with friends or relatives?: never How often do you attend adventism or rastafari services?: 1-3 times per year Do you belong to any clubs or organized social groups?: no Panel score (0-1 are the most socially isolated patients): 1 What type of physical activity do you participate in: walking Duration: > 90 minutes/day Frequency: 3-4 times per week Lila/Church: Buddhism Seatbelt use: always Helmet use: No Drive intox or ride w/intox crew car driver: No Do you feel safe in your relationship?: Yes Exam Const General: cooperative and no acute distress HENMT Head: normal to inspection Face and sinus: normal facial exam Eyes General: appearance normal, both eyes and all related structures EOM: EOM intact bilaterally Neck Neck: normal visual inspection and No submandibular swelling Lymphatic: no lymphadenopathy noted Chest Chest: normal inspection of the chest and no tenderness Resp Effort & Inspection: normal respiratory effort and able to speak in complete sentences Auscultation: clear to auscultation bilaterally Cardio Rate: regular rate Rhythm: regular rhythm GI Inspection: normal to inspection Palpation: soft, not firm, not rigid and tender in the epigastrum, in the LUQ and in the RUQ Auscultation: hypoactive bowel sounds Skin General skin exam: no rashes or lesions noted Neuro General: patient alert, patient awake and patient oriented x3 Cognition: normal cognition Speech: speech normal Motor: muscle tone normal throughout Sensory Exam: no sensory deficits noted Extrem General: normal to inspection, full ROM, capillary refill normal, no calf tenderness bilaterally and no edema Psych Appearance: grossly normal Mental Status: mental status grossly normal Speech and Movement: speech and movement normal Affect: normal affect Course Vital Signs Vital signs: Vital Signs Temperature 96.8 F L 03/05/21 12:51 Pulse 95 H 03/05/21 12:51 Respiratory Rate 16 03/05/21 12:51 Blood Pressure 135/82 03/05/21 12:51 Pulse Oximetry 99 03/05/21 12:51 Temperature 96.8 F L 03/05/21 12:51 Temperature Source Temporal Artery Scan 03/05/21 12:51 Pulse 95 H 03/05/21 12:51 Respiratory Rate 16 03/05/21 12:51 Blood Pressure 135/82 03/05/21 12:51 Blood Pressure Position Sitting 03/05/21 12:51 Pulse Oximetry 99 03/05/21 12:51 Oxygen Delivery Method Room Air 03/05/21 12:51 Oxygen Flow Rate 0 03/05/21 12:51 Pain Level 0 03/05/21 12:51
[2021-03-05 13:06] LABS: Bilirubin Negative (Negative); Blood Negative (Negative); Clarity Clear (Clear); Glucose Negative (Negative); Ketones Negative (Negative); Leukocyte Esterase Negative (Negative); Nitrite Negative (Negative); Specific Gravity >= 1.030 (1.005-1.025); pH 5.5 (5-8)
--- NOTE | 2021-03-05 13:15 | RT.EKG_ITS ---
APPROVED REPORT Exam: Resting ECG Reason for Exam: h/o stemi, epigastric pain Patient Location: E HR:79 bpm ECG Measurements Heart Rate 79 AXIS MA 211 P 64 QRSd 102 QRS 188 QT 509 T 73 QTc 584 Conclusion Sinus rhythm...normal P axis, V-rate 60- 99 Inferior infarct, old...Q >35mS, II III aVF Nonspecific T abnormalities, lateral leads...T <-0.10mV, I aVL V5 V6 Prolonged QT interval...QTc >500mS. Sinus. Q waves inferior leads. No STEMI. I have reviewed and interpreted ECG and agree with software generated interpretation.
--- NOTE | 2021-03-05 13:15 | DI.CT_ITS ---
Exam(s) CT CHEST/ABD/PEL W EXAM: CT CHEST/ABD/PEL W CLINICAL HISTORY: epigastric/RUQ/LUQ/periumbilical pain, nausea TECHNIQUE: Imaging Protocol: Axial computed tomography images with coronal and sagittal reformatted images were created and reviewed CONTRAST MATERIAL: Intravenous: Omnipaque 350 Contrast volume:100 mL Oral: No COMPARISON: US US ABDOMEN LIMITED from 03/05/2021 FINDINGS: The examination is limited due to patient motion artifact. CHEST: Tracheobronchial tree: Patent where visualized. Pulmonary parenchyma: Small infiltrates are seen in the lower lobes, right greater than left and the left lingula. No architectural distortion. Visualized thyroid gland: Unremarkable. Mediastinum and Marta: No dominant adenopathy or fluid collection. Small hiatal hernia. Pleura: Small right pleural effusion. No left pleural effusion or pneumothorax. Heart: The heart is not dilated. Coronary artery calcifications are present. No pericardial effusion . Pulmonary arteries: Pulmonary arteries are not well opacified peripherally. No definite central pulm onary artery embolus is seen. Aorta: Thoracic aorta non-dilated. Mild atherosclerosis. Lymph nodes: Within normal limits. Soft tissues: Unremarkable. Bones:Within normal limits for the patient's age. Sternal wires are in place. ABDOMEN: Liver: Normal density. No measurable mass. Portal, Superior Mesenteric, and Splenic Veins: Unremarkable. Gallbladder and Biliary Tract: There is gallbladder wall thickening. The gallbladder wall is enhanci ng and pericholecystic fluid is seen. There is dilatation of the cystic duct. No intrahepatic bilia ry ductal dilatation is seen. Pancreas: Normal density, no abnormal calcifications or inflammatory process. Spleen: Normal. Adrenals: No masses seen. Kidneys: Normal size, contour and axis. There is no nephrolithiasis. There is prominence of the gogo l pelves bilaterally. There is normal enhancement of the kidneys. There is a simple cyst in the sup erior pole of the right kidney. Abdominal Aorta: Abdominal portion non-dilated. Atherosclerosis. Bowel: No obstruction or bowel wall thickening. Appendix is unremarkable. Diverticulosis of the colon , but no evidence of acute diverticulitis. There is a small knuckle of sigmoid colon within a small left inguinal hernia. No evidence of obstruction. Peritoneal Cavity: No ascites, collection or mesenteric inflammatory response. No free air. Lymph Nodes: There is a 2.5 x 3.5 cm soft tissue mass in the right inguinal region suspicious for an enlarged lymph node. Bones: Degenerative changes are seen in the spine consistent with the patient's age. Soft Tissues: Unremarkable. PELVIS: Bladder: There is diffuse thickening of the wall of the urinary bladder. Reproductive Organs: The prostate gland is enlarged and impinges upon the base of the bladder. Lymph Nodes: Within normal limits. Bones: Within normal limits. IMPRESSION: 1. CT findings consistent with acute cholecystitis as identified on the ultrasound from earlier in . 2. Dilatation of both renal pelves. This may be hydronephrosis. Prominent extrarenal pelves cannot be excluded. Nonemergent nuclear medicine renal scan may be useful for further evaluation. 3. Enlarged prostate gland impinging upon the base of the urinary bladder. There is diffuse thickeni ng of the wall of the urinary bladder. This may be due to bladder outlet obstruction, neurogenic nash dder, neoplasm. Please correlate clinically. 4. Enlarged right inguinal lymph node. 5. Left inguinal hernia containing a short segment of colon. No obstruction is present. 6. Small infiltrate seen in the lower lobes and left lingula which may represent atelectasis or pneum onia. 7. Small right pleural effusion. RADIATION DOSE DELIVERED: 1,176.25mGy.cm Total DLP DATA REPOSITORY: All CT scans at this facility are submitted to the National Radiology Data Registry (NRDR) Dose Index Registry (DIR) with the [employer] (ACR). RADIATION OPTIMIZATION: All CT scans at this facility use at least one of these dose optimization te chniques: automated exposure control; mA and/or kV adjustment per patient size (includes targeted exa ms where dose is matched to clinical indication); or iterative reconstruction.
--- NOTE | 2021-03-05 13:15 | DI.US_ITS ---
Exam(s) US ABDOMEN LIMITED EXAM: US ABDOMEN LIMITED CLINICAL HISTORY: RUQ/epigastric pain, r/o cholecystitis TECHNIQUE: Ultrasound abdomen performed using standard protocol. COMPARISON: No priors for comparison. FINDINGS: PANCREAS: Normal where visualized. LIVER: There is diffuse increased echogenicity of the liver consistent with fatty infiltration. Hepa topedal flow in the Portal Vein. GALLBLADDER: Gallstones are present. There is pericholecystic fluid. The gallbladder wall measures 0.5 cm. The cystic duct is dilated to 9 mm. BILIARY SYSTEM: Common bile duct measures < 7 mm. CHACON'S SIGN: Negative. RIGHT KIDNEY: Kidney is normal in size. No evidence of renal calculi. There is mild dilatation of th e right renal collecting system. There is a 1.9 cm simple right renal cyst. ASCITES: None seen. IMPRESSION: 1. Findings suggestive sonographically of acute cholecystitis. 2. Mild right hydronephrosis. DATA REPOSITORY:
[2021-03-05] MEDS: Normal Saline 1,000 ML 1000 ML IV (13:40)
[2021-03-05 13:50] LABS: Abs Immature Grans 0.04 10^3/uL (0.0-0.06); Absolute Basophil Count 0.03 10^3/uL (0.0-0.2); Absolute Lymphocyte Count 0.73 10^3/uL (1.2-3.4); Absolute Monocyte Count 0.57 10^3/uL (0.1-0.8); Absolute Neutrophil Count 6.18 10^3/uL (1.2-6.7); Basophils % 0.4; Eosinophils % 1.3; HCT 43.6 % (40.0-50.0); HGB 14.6 g/dL (13.5-17.5); Immature Grans % 0.5; Lymphocytes % 9.5; MCH 29.8 pg (27.0-33.0); MCHC 33.5 % (32.0-36.0); MPV 10.4 fL (8.0-11.0); Monocytes % 7.5; Neutrophils % 80.8; Nucleated RBC 0 %; Platelet Count 172 10^3/uL (130-400); RDW 13.1 % (11.8-14.1); RDW-SD 42.7 fL; WBC 7.65 10^3/uL (4.4-10.8)
[2021-03-05 14:11] LABS: ALT 107 U/L (16-63); AST 128 U/L (15-37); Albumin 3.6 g/dL (3.4-5.0); Alkaline Phosphatase 165 U/L (46-116); BUN 22 mg/dL (7-18); Bilirubin, Total 1.4 mg/dL (0.2-1.0); CREATININE 1.3 mg/dL (0.70-1.30); Calcium 8.9 mg/dL (8.5-10.1); Chloride 104 mmol/L (98-107); Estimated GFR 53.39 (mL/min/1.73m2); Glucose 140 mg/dL (74-106); Lipase 168 U/L (73-393); Potassium 4.2 mmol/L (3.5-5.1); Sodium 139 mmol/L (136-145); Total Protein 7.5 g/dL (6.4-8.2); Troponin I < 50 ng/L (<or=60)
[2021-03-05 14:13] VITALS: BP 114/66; PULSE 82; RESP 18; O2SAT 98
--- NOTE | 2021-03-05 15:00 | SUR.PHASEI ---
Pt in US. To be transported to CTdirectly.
[2021-03-05] MEDS: Omnipaque 350 MG/ML 100 ML BTL IJ (15:21)
[2021-03-05 15:29] VITALS: BP 124/65; PULSE 83; RESP 18; O2SAT 97
--- NOTE | 2021-03-05 15:31 | SUR.PHASEI ---
Pt resting in bed. Awaiting US and CT results.
--- NOTE | 2021-03-05 15:33 | DI.VRAD_ITS ---
Addendum created by Pamela Hilario MD on 03/05/2021 3:34:59 PM EST: THIS REPORT CONTAINS FINDINGS THAT MAY BE CRITICAL TO PATIENT CARE. The findings were verbally communicated via telephone conference with camila siegel at 3:34 PM EST on 03/05/2021. The findings were acknowledged and understood. Initial report created on 03/05/2021 3:32:56 PM EST: PROCEDURE INFORMATION: Exam: US Abdomen, Limited; Right Upper Quadrant Exam date and time: 03/05/2021 1:20 PM Age: 80 years old Clinical indication: Abdominal pain; Epigastric TECHNIQUE: Imaging protocol: US abdomen. Real time ultrasound with image documentation. Limited exam focused on the right upper quadrant. COMPARISON: No relevant prior studies available. FINDINGS: Liver: There is a diffuse increase in hepatic parenchymal echogenicity, consistent with fatty infiltration. Liver measures 13 cm Gallbladder: Gallstones in the gallbladder. Pericholecystic fluid. Gallbladder wall 5.1 mm. Findings consistent with acute cholecystitis. Cystic duct is 9 mm Common bile duct: Common bile duct 2.9 mm Pancreas: The pancreas is poorly-visualized due to overlying bowel gas.. Right kidney: Cystic structure in the right kidney 1.6 x 1.9 cm. Right kidney 10.7 cm. Mild hydronephrosis of the right kidney IMPRESSION: Gallstones in the gallbladder. Pericholecystic fluid. Gallbladder wall 5.1 mm. Findings consistent with acute cholecystitis. Mild hydronephrosis Dictated and Authenticated by: Pamela Hilario MD. Ordering:KAHLIL Card MD
--- NOTE | 2021-03-05 15:42 | DI.VRAD_ITS ---
PROCEDURE INFORMATION: Exam: CT Chest With Contrast; Diagnostic Exam date and time: 03/05/2021 1:20 PM Age: 80 years old Clinical indication: Other: Epigastric; Sternal or substernal pain; Prior surgery TECHNIQUE: Imaging protocol: Diagnostic computed tomography of the chest with contrast. 3D rendering (Not supervised by radiologist): MIP and/or 3D reconstructed images were created by the technologist. COMPARISON: CR XR PORTABLE CHEST AP 12/13/2017 8:17 AM FINDINGS: Lungs: Mild opacities in the lingula and both lower lobes may represent atelectasis or pneumonia.. Pleural spaces: Small right pleural effusion. Heart: Unremarkable. No cardiomegaly. No pericardial effusion. Pulmonary arteries: No evidence of pulmonary embolus to the segmental level. Aorta: No aneurysm of the aorta. No dissection of the aorta. Lymph nodes: Unremarkable. No enlarged lymph nodes. Bones/joints: Median sternotomy. Soft tissues: Unremarkable. IMPRESSION: 1. No evidence of pulmonary embolus to the segmental level. 2. No aneurysm of the aorta. 3. No dissection of the aorta. 4. Mild opacities in the lingula and both lower lobes may represent atelectasis or pneumonia.. 5. Small right pleural effusion. PROCEDURE INFORMATION: Exam: CT Abdomen And Pelvis With Contrast Exam date and time: 03/05/2021 1:20 PM Age: 80 years old Clinical indication: Other: Epigastric; Sternal or substernal pain; Prior surgery TECHNIQUE: Imaging protocol: Computed tomography of the abdomen and pelvis with contrast. 3D rendering (Not supervised by radiologist): MIP and/or 3D reconstructed images were created by the technologist. COMPARISON: CR XR PORTABLE CHEST AP 12/13/2017 8:17 AM FINDINGS: Liver: Normal. No mass. Gallbladder and bile ducts: Gallbladder wall thickening. Enhancing gallbladder wall. Pericholecystic inflammatory changes. Findings consistent with acute cholecystitis. These findings have already been discussed with Dr. Estrella after the abdominal ultrasound. Pancreas: Normal. No ductal dilation. Spleen: Normal. No splenomegaly. Adrenal glands: Normal. No mass. Kidneys and ureters: Dilatation of both collecting systems may reflect hydronephrosis. The proximal ureters are not dilated. The distal ureters are mildly dilated.. 2 cm simple cyst upper pole right kidney . No follow-up imaging recommended . Stomach and bowel: Unremarkable. No obstruction. No mucosal thickening. Appendix: No evidence of appendicitis. Intraperitoneal space: Unremarkable. No free air. No significant fluid collection. Vasculature: Unremarkable. No abdominal aortic aneurysm. Lymph nodes: 3.3 by 2.6 cm soft tissue density in the right groin. Series 4, image 122. Findings consistent with enlarged lymph node Urinary bladder: The bladder wall measures five mm. This is nonspecific and may represent inflammation or infection. Neoplastic process and neurogenic bladder are included in the differential. Reproductive: Unremarkable as visualized. Bones/joints: Unremarkable. No acute fracture. Soft tissues: Left inguinal hernia contains a loop of colon. Series 4, image 114. No obstruction. . IMPRESSION: 1. Gallbladder wall thickening. Enhancing gallbladder wall. Pericholecystic inflammatory changes. Findings consistent with acute cholecystitis. These findings have already been discussed with Dr. Estrella after the abdominal ultrasound. 2. Dilatation of both collecting systems may reflect hydronephrosis. The proximal ureters are not dilated. The distal ureters are mildly dilated.. 3. The bladder wall measures five mm. This is nonspecific and may represent inflammation or infection. Neoplastic process and neurogenic bladder are included in the differential. . 4. Left inguinal hernia contains a loop of colon. Series 4, image 114. No obstruction. 5. 3.3 by 2.6 cm soft tissue density in the right groin. Series 4, image 122. Findings consistent with enlarged lymph node. Dictated and Authenticated by: Pamela Hilario MD. Ordering:KAHLIL Card MD
[2021-03-05 15:54] LABS: Bilirubin, Direct 0.7 mg/dL (0.0-0.2)
--- NOTE | 2021-03-05 16:37 | SCONE_ITS ---
Date of service: 03/05/21 Time of Service: 16:37 Assessment and Plan Assessment and plan (1) Acute cholecystitis: Status: Acute Assessment and plan: As stated in HPI, discussed plan via telephone with E R provider and patient's to ensure all questions were answered regarding plan Augmentin x 7 days Avoid fatty or fried foods, discussed diet precautions with the patient's Return precautions discussed, should he develop worsening symptoms or fever return to the ER Otherwise outpatient follow up to schedule cholecystectomy Provided my personal cellphone number as well for any further questions or concerns (2) Biliary colic: Status: Acute (3) Coronary artery disease: Status: Chronic Qualifiers: Coronary Disease-Associated Artery/Lesion type: bypass graft [place] vs. transplanted heart: [place] heart Associated angina: unspecified whether angina present Qualified Code(s): I25.810 - Atherosclerosis of coronary artery bypass graft(s) without angina pectoris (4) BPH (benign prostatic hyperplasia): Status: Chronic Qualifiers: Lower urinary tract symptom presence: unspecified whether lower urinary tract symptoms present Qualified Code(s): N40.0 - Benign prostatic hyperplasia without lower urinary tract symptoms History of Present Illness Narrative: 80 year old male who presented to the ER complaining of abdominal pain after eating pot roast. Per EMR he has had two prior episodes in the past both of which were also attributed to pot roast meals. Labs done in the ER revealed a normal white blood cell count, sllightly elevated LFT's and direct bilirubin of 0.7. Abdominal US and CT of the abdomen were performed revealing evidence of acute on chronic cholecystitis. At the time I was called for cons ultation, the was reportedly feeling better without any further pain. The possibility of discharge home on PO antibiotics and office follow up was discussed with the ER provider and myself versus admission for cholecystectomy. Patient preferred being discharged, I spoke to the patient's about the plan with return precautions should he have worsening symptoms or develop fever or jaundice. Also of consideration is the current nation wide blood shortage, which further supports the decision to trial of antibiotics unless this were to become an emergency procedure. I did not personally see the patient, but discussed his care plan and follow up via telephone. 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 Sister No problems noted. Maternal Grandfather No problems noted. Maternal Grandmother No problems noted. Paternal Grandfather No problems noted. Paternal Grandmother No problems noted. Social History (Updated 02/25/21 @ 16:49 by Katya Beatty) Smoking/Tobacco Use Status: Former Tobacco Use Smoking risk assessment performed?: Yes Alcohol Intake: current Drug use: Never Caregiver/Support person: No Housing: house Communication Needs: None Pets and animals: Yes Pets and animals: cat(s) Sexually active: No Do you think of yourself as: straight/heterosexual Current gender identity: male What is your relationship status?: How often do you talk on the phone with friends or family?: never How often do you get together with friends or relatives?: never How often do you attend taoist or gnosticism services?: 1-3 times per year Do you belong to any clubs or organized social groups?: no Panel score (0-1 are the most socially isolated patients): 1 What type of physical activity do you participate in: walking Duration: > 90 minutes/day Frequency: 3-4 times per week Lila/Zoroastrian: Holiness Seatbelt use: always Helmet use: No Drive intox or ride w/intox emergency medical technician/driver: No Do you feel safe in your relationship?: Yes Exam Narrative Exam Narrative: did not personally examine patient Results Last Vital Signs Temp 96.8 F L 03/05/21 12:51 Pulse 83 03/05/21 15:29 Resp 18 03/05/21 15:29 BP 124/65 03/05/21 15:29 Pulse Ox 97 03/05/21 15:29 Labs Result diagrams: 03/05/21 13:36 03/05/21 13:36 Labs: Laboratory Results - last 24 hr 03/05/21 03/05/21 03/05/21 12:59 13:36 13:36 WBC 7.65 RBC 4.90 Hgb 14.6 Hct 43.6 MCV 89.0 MCH 29.8 MCHC 33.5 RDW 13.1 Plt Count 172 MPV 10.4 Immature Gran % 0.5 Neutrophils % 80.8 Lymphocytes % 9.5 Monocytes % 7.5 Eosinophils % 1.3 Basophils % 0.4 Nucleated RBC % 0 Absolute Neutrophils 6.18 Absolute Lymphocytes 0.73 L Absolute Monocytes 0.57 Absolute Eosinophils 0.10 Absolute Basophils 0.03 Sodium 139 Potassium 4.2 Chloride 104 Carbon Dioxide 28.0 Anion Gap 7.0 BUN 22 H Creatinine 1.3 Estimated GFR/1.73 m2 53.39 Glucose 140 H Calcium 8.9 Magnesium 2.0 Total Bilirubin 1.4 H Conjugated Bilirubin AST 128 H ALT 107 H Alkaline Phosphatase 165 H Troponin I < 50 Total Protein 7.5 Albumin 3.6 Lipase 168 Urine Color Yellow Urine Clarity Clear Urine pH 5.5 Ur Specific [place] >= 1.030 H Urine Protein Negative Urine Ketones Negative Urine Blood Negative Urine Nitrite Negative Urine Bilirubin Negative Urine Urobilinogen 1.0 H Ur Leukocyte Esterase Negative Urine Glucose Negative 03/05/21 13:36 WBC RBC Hgb Hct MCV MCH MCHC RDW Plt Count MPV Immature Gran % Neutrophils % Lymphocytes % Monocytes % Eosinophils % Basophils % Nucleated RBC % Absolute Neutrophils Absolute Lymphocytes Absolute Monocytes Absolute Eosinophils Absolute Basophils Sodium Potassium Chloride Carbon Dioxide Anion Gap BUN Creatinine Estimated GFR/1.73 m2 Glucose Calcium Magnesium Total Bilirubin Conjugated Bilirubin 0.7 H AST ALT Alkaline Phosphatase Troponin I Total Protein Albumin Lipase Urine Color Urine Clarity Urine pH Ur Specific [place] Urine Protein Urine Ketones Urine Blood Urine Nitrite Urine Bilirubin Urine Urobilinogen Ur Leukocyte Esterase Urine Glucose
[2021-03-05 16:47] VITALS: BP 126/74; PULSE 79; RESP 18; TEMP 36.4; O2SAT 97
[2021-03-05] MEDS: Amoxicillin 875/Clav. 125 TAB PO ×2 (16:49)
--- NOTE | 2021-03-05 16:50 | NUR.NOTE ---
[facility]/needs surgery this week. Dr. Brito consulted. Isaura Pena. Nursing Note:
--- NOTE | 2021-03-06 08:33 | NUR.NOTE ---
Patient called asking for pain medication. He is having pain all the time. Consulted with Dr. Lay and he stated patient needs to return, call physician collections representative or try to speak with the surgeon collections representative. I relayed this information to the patient and he has elected to come back to the Emergency Dept. Isaura Pena Nursing Note:
== END 2021-03-05 16:57 | disposition home or self-care (01) ==
PROVIDERS: Emergency Provider Physician Assistant; PCP Nurse Practitioner Family
DX: K80.42 Calculus of bile duct with acute cholecystitis without obstruction; R10.11 Right upper quadrant pain; R10.13 Epigastric pain
CPT/HCPCS: 36415; 74177; 80053; 83690; 93005; 96361; 96374; 99282; 99285; 71260; 76705; 81003; 82248; 83735; 84484; 85025; 93010; 99284; J3490

== ENCOUNTER 2021-03-06 08:47 | Emergency (ER) | payer MEDICARE, OTHER, SELFPAY ==
[2021-03-06 08:53] VITALS: BP 128/63; PULSE 75; RESP 16; TEMP 36.1; O2SAT 97
--- NOTE | 2021-03-06 08:55 | W.ED.GENAD ---
Discharge Plan Disposition Patient Disposition: AGAINST MEDICAL ADVICE Condition: Stable Discharge Details Clinical Impression: Acute cholecystitis, Left against medical advice Primary Care Provider: Sulema Rai ED Provider: Chilo Lay Home Meds and New Rx's Prescriptions: Continued aspirin 81 mg tablet,chewable 81 mg PO DAILY RF: 0 atorvastatin 80 mg tablet 80 mg PO DAILY Qty: 90 RF: 4 zinc 50 MG tablet 50 mg PO DAILY RF: 0 amoxicillin-pot clavulanate [Augmentin] 875-125 mg tablet 1 tab PO BID 7 Days Qty: 14 RF: 0 Discharge Instructions Additional Instructions: You have elected to leave the ER prior to completion of your consultation with surgery and gastroenterology. Return at any time for reevaluation. Return if you have increasing pain, develop a fever or any other concerns. We will attempt to call you if we receive any further information from the mainframe consultant services. May use tramadol if needed for pain. Avoid fatty or fried, high protein foods. Discharge Data Discharge Date/Time-TO BE ENTERED AT DEPARTURE: 03/06/21 11:34 Medical Decision Making 80yom returns for recheck of abdominal pain, stating he needs increased pain control at home. Yesterday, pt underwent labs, USN, CT imaging. WBC 7, mild elevation LFTs. 03/05 US: Gallstones in the gallbladder. Pericholecystic fluid. Gallbladder wall 5.1 mm. Findings consistent with acute cholecystitis. 03/05 CT abdomen and pelvis notes: IMPRESSION: 1. CT findings consistent with acute cholecystitis as identified on the ultrasound from earlier in the day. Patient states to me at home last night he ate a tuna sandwich and then developed an pain and nausea. At his initial triage he stated that he just wants pain pills. I then discussed with him the pathophysiology of the etiology of the pain and we agreed it would be cope to check laboratories today. Patient's white count has risen from 7-11.8. AST risen from 128-305, ALT from 107-527, total bili has risen from 1.4-3.1 and conjugated bili from 0.7-2.0. Case discussed with Dr. Lopez who recommends referral for ERCP. Images uploaded and consult initiated with [facility]. Case discussed with Dr. Porter of gastroenterology. He states he feels ERCP is not indicated at this time given no evidence of choledocholithiasis. He states to consider either repeat ultrasound tomorrow morning or at consider proceeding with cholecystectomy and intraoperative cholangiogram. He states if needed ERCP can be performed following cholecystectomy. I again discussed the case with Dr. Lopez. She asked to speak with Dr. Porter of gastroenterology. At approximately 11:15 AM the patient stated he wished to be discharged home and that I could call him for any further follow-up. We discussed risks and benefits of leaving including that it would be AGAINST MEDICAL ADVICE and he would risk increased illness and potentially . He asked for a small amount of analgesia and that was the only thing he wanted. I do feel is reasonable for him to have 2 tramadol tablets. Medical Records Medical records reviewed: Yes I reviewed the patient's medical records. Lab Data Lab results reviewed: Yes I reviewed the patient's lab results. Labs: Laboratory Results - last 24 hr 03/06/21 03/06/21 09:14 09:14 WBC 11.83 H D RBC 4.93 Hgb 14.8 Hct 43.4 MCV 88.0 MCH 30.0 MCHC 34.1 RDW 13.1 Plt Count 172 MPV 10.4 Sodium 138 Potassium 4.0 Chloride 105 Carbon Dioxide 22.2 Anion Gap 10.8 BUN 17 Creatinine 1.3 Estimated GFR/1.73 m2 53.39 Glucose 201 H Calcium 8.8 Total Bilirubin 3.1 H Conjugated Bilirubin 2.0 H AST 305 H ALT 527 H Alkaline Phosphatase 232 H Total Protein 7.4 Albumin 3.6 HPI General Mode of arrival: ambulatory. Date/Time Provider Initiated Documentation: 03/06/21 08:48. Limitations to Documentation: no limitations. Information obtained by: patient. History of Present Illness 80 year old M presents to the emergency department with the chief complaint of Abdominal pain recheck, described as moderate, Quality is described as constant, and is localized to the abdomen. Patient reports no radiation. Patient started experiencing this hour(s) and it has been constant. No relieving factors improve symptom(s), No exacerbating factors reported . Patient notes denies fever/chills, loss of appetite and nausea/vomiting. Related Data Home Medications Medication Instructions Recorded Confirmed zinc 50 mg PO DAILY 09/04/12 03/06/21 aspirin 81 mg chewable tablet 81 mg PO DAILY 01/25/18 03/06/21 atorvastatin 80 mg tablet 80 mg PO DAILY #90 tab 02/24/21 03/06/21 amoxicillin-pot clavulanate 1 tab PO BID 7 Days #14 tab 03/05/21 03/06/21 [Augmentin] Previous Rx's Medication Instructions Recorded atorvastatin 80 mg tablet 80 mg PO DAILY #90 tab 02/24/21 amoxicillin-pot clavulanate 1 tab PO BID 7 Days #14 tab 03/05/21 [Augmentin] Allergies Allergy/AdvReac Type Severity Reaction Status Date / Time tetracycline Allergy Unknown Verified 03/06/21 08:57 General JERARDO: 3 Review of Systems Narrative: No fever, states he became nauseated and had pain after eating a tuna sandwich. Denies fever at home. No other illness. 8 systems reviewed and otherwise negative. 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 Sister No problems noted. Maternal Grandfather No problems noted. Maternal Grandmother No problems noted. Paternal Grandfather No problems noted. Paternal Grandmother No problems noted. Social History Smoking/Tobacco Use Status: Former Tobacco Use Smoking risk assessment performed?: Yes Alcohol Intake: current Alcohol Intake frequency: a few times a month Drug use: Never Substance use type: does not use Caregiver/Support person: No Housing: house Communication Needs: None Pets and animals: Yes Pets and animals: cat(s) Sexually active: No Do you think of yourself as: straight/heterosexual Current gender identity: male What is your relationship status?: How often do you talk on the phone with friends or family?: never How often do you get together with friends or relatives?: never How often do you attend quaker or latter day services?: 1-3 times per year Do you belong to any clubs or organized social groups?: no Panel score (0-1 are the most socially isolated patients): 1 What type of physical activity do you participate in: walking Duration: > 90 minutes/day Frequency: 3-4 times per week Lila/Rastafarian: Anglican Seatbelt use: always Helmet use: No Drive intox 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 Pleasant, well groomed, interactive. HEAD: Normocephalic, atraumatic ENT: Mucous membranes moist, oropharynx unremarkable, External ear exam unremarkable EYES: PERRL, EOMI NECK: Full ROM, no ARTEM, no menigismus CHEST/RESP: Nontender, clear to auscultation bilateral, no wheeze/rhonchi/rales CARDIOVASCULAR: RRR, no murmur, rub maría. 2+ Rad pulse bilateral ABDOMEN: Soft, mild diffuse tenderness, no mass. +Bowel sounds EXT: Full ROM, no edema, no rash Neuro: Grossly normal neurologic exam, conversant, interactive. Psych: Speech fluent, thoughts congruent, affect normal
[2021-03-06 09:25] LABS: HCT 43.4 % (40.0-50.0); HGB 14.8 g/dL (13.5-17.5); MCHC 34.1 % (32.0-36.0); MPV 10.4 fL (8.0-11.0); Platelet Count 172 10^3/uL (130-400); RBC 4.93 10^6/uL (4.36-5.78); RDW 13.1 % (11.8-14.1); RDW-SD 42.2 fL; WBC 11.83 10^3/uL (4.4-10.8)
[2021-03-06 09:36] LABS: ALT 527 U/L (16-63); AST 305 U/L (15-37); Albumin 3.6 g/dL (3.4-5.0); Alkaline Phosphatase 232 U/L (46-116); Anion Gap 10.8 mmol/L (3-11); BUN 17 mg/dL (7-18); Bilirubin, Total 3.1 mg/dL (0.2-1.0); CO2 22.2 mmol/L (21.0-32.0); CREATININE 1.3 mg/dL (0.70-1.30); Calcium 8.8 mg/dL (8.5-10.1); Chloride 105 mmol/L (98-107); Estimated GFR 53.39 (mL/min/1.73m2); Glucose 201 mg/dL (74-106); Sodium 138 mmol/L (136-145); Total Protein 7.4 g/dL (6.4-8.2)
[2021-03-06 10:13] VITALS: BP 127/74; PULSE 63; RESP 18; O2SAT 95
--- NOTE | 2021-03-06 11:12 | SUR.PHASEI ---
Dr. Lay in to talk to pt regarding surgical consult.
[2021-03-06 11:18] VITALS: BP 120/66; PULSE 82; RESP 20; TEMP 36.7; O2SAT 100
[2021-03-06 11:25] VITALS: BP 129/72; PULSE 72; RESP 18; TEMP 36.5; O2SAT 96
[2021-03-06 11:37] VITALS: BP 129/72; PULSE 72; RESP 18; TEMP 36.5; O2SAT 96
== END 2021-03-06 11:34 | disposition left against medical advice (07) ==
PROVIDERS: Emergency Provider Emergency Medicine; PCP Nurse Practitioner Family
DX: K81.0 Acute cholecystitis (principal); Z53.29 Procedure and treatment not carried out because of patient's decision for other reasons; D72.829 Elevated white blood cell count, unspecified
CPT/HCPCS: 36415; 80053; 85027; 99283; 82248

== ENCOUNTER → 2021-03-08 13:16 | Outpatient (BNVA) | payer MEDICARE, OTHER, SELFPAY | PROVIDERS: PCP Nurse Practitioner Family; Referring Provider Nurse Practitioner Family; Visit Provider Surgery | DX: K81.0 Acute cholecystitis (principal) | CPT/HCPCS: 99203 ==

== ENCOUNTER 2021-03-08 13:55 | Inpatient (IN) | payer MEDICARE, OTHER, SELFPAY ==
[2021-03-08 14:33] LABS: Source Nasal/Nares
--- NOTE | 2021-03-08 14:34 | W.PM.HP.N ---
Date of service: 03/08/21 Time of Service: 14:35 Assessment and Plan Assessment and plan (1) Acute cholecystitis: Status: Acute Assessment and plan: Mr. Ross pleasant 10-year-old gentleman with acute cholecystitis who comes into the office today after leaving AMA from the emergency department on the . I discussed with him the risks of cholecystitis and that I would recommend admission today for IV fluids, IV antibiotics, IV pain medications and plan for laparoscopic cholecystectomy tomorrow. He may need an ERCP done done at [facility] after his surgery. Patient agrees to admission. I will recheck his labs as well and see where were out with his bilirubin and white count. Laparoscopic Cholecystectomy with cholangiogram Risks, benefits, complications were reviewed with the patient in the office. Complications include but are not limited to bleeding, infection, injury to stomach, small bowel and large bowel, injury to the pancreas, injury to the common bile duct necessitating drainage and referral to tertiary center for repair, bile leak, adverse reactions to the medications, complications of intubation including a sore throat or injury to the uvula, [place], stroke and even . Questions were entertained and answered to her satisfaction and she wished to proceed. No guarantees were given or implied. History of Present Illness Narrative: Mr. Ross is here with his to discuss his diagnosis of cholecystitis. He was seen in the emergency department on March 05 and was diagnosed with acute cholecystitis. His pain resolved in the emergency department so that he his pain resolved while in the emergency department and his labs were reassuring so he was discharged to follow-up with Dr. Haney as an outpatient. He went back to the emergency department on March 06 with worsening pain. His labs showed a white count of 11.83, hemoglobin of 14.8 and hematocrit of 43.4, platelets were 172. His total bilirubin was elevated at 3.1, AST was elevated at 305, ALT 527, alk phos at 232. The case was again discussed with Dr. Lopez who referred the patient to [facility] for ERCP. [facility] did not have beds and did not feel that he needed to acutely have an ERCP. By the time the ER contacted Dr. Lopez again the patient left AMA. He comes in today. He tells me that his pain is more of a dull ache now than an acute sharp pain. He does not look yellow or jaundiced. He has been able to eat and drink. We did discuss acute cholecystitis and that we should do surgery soon. I discussed with him that I would like to admit him so I can hydrate him and give him pain meds IV antibiotics and repeat his labs. If his bilirubin is still elevated then I can do a laparoscopic cholecystectomy with intraoperative cholangiogram. If he has a stone then I would call [facility] to have him go down there for an ERCP. With his pain being better my hope is that if he did have a stone it has now passed. The patient and his they are in agreement for admission to the hospital today with possible laparoscopic cholecystectomy tomorrow. He has a history of end STEMI in 2018 with a quadruple CABG. He has not had any chest pain since then. He saw cardiology last year and they were very happy with his cholesterol being down. They recommended a 1 year visit which would be next. Review of Systems Constitutional Constitutional: Reports fatigue, Denies fever(s) and Denies headache(s) Eyes Eyes: Denies change in vision ENT Ears, Nose, Mouth, and Throat: Denies dysphagia and Denies headache(s) Cardiovascular Cardiovascular: Denies chest pain, Denies irregular heart rhythm, Denies palpitations and Denies dyspnea Respiratory Respiratory: Denies cough and Denies dyspnea Gastrointestinal Gastrointestinal: Reports as per HPI and Denies dysphagia Genitourinary Genitourinary: Reports system reviewed and no additional complaints, except as documented Musculoskeletal Musculoskeletal: Reports system reviewed and no additional complaints, except as documented Integumentary/Breasts Skin/Breast: Reports system reviewed and no additional complaints, except as documented Neurologic Neurologic: Reports system reviewed and no additional complaints, except as documented and Denies headache(s) Endocrine Endocrine: Reports fatigue and Denies palpitations PFSH All Active Problems Left against medical advice (Acute) Biliary colic (Acute) Acute cholecystitis (Acute) Coronary artery disease (Chronic) 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 Sister No problems noted. Maternal Grandfather No problems noted. Maternal Grandmother No problems noted. Paternal Grandfather No problems noted. Paternal Grandmother No problems noted. Social History Smoking/Tobacco Use Status: Former Tobacco Use Smoking risk assessment performed?: Yes Alcohol Intake: current Alcohol Intake frequency: a few times a month Drug use: Never Substance use type: does not use Caregiver/Support person: No Housing: house Communication Needs: None Pets and animals: Yes Pets and animals: cat(s) Sexually active: No Do you think of yourself as: straight/heterosexual Current gender identity: male What is your relationship status?: How often do you talk on the phone with friends or family?: never How often do you get together with friends or relatives?: never How often do you attend uatsdin or adventist services?: 1-3 times per year Do you belong to any clubs or organized social groups?: no Panel score (0-1 are the most socially isolated patients): 1 What type of physical activity do you participate in: walking Duration: > 90 minutes/day Frequency: 3-4 times per week Lila/Anabaptist: Jehovah'S Witness Seatbelt use: always Helmet use: No 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 Do you feel safe in your relationship?: Yes Meds Allergies and Home Medications Allergies Allergy/AdvReac Type Severity Reaction Status Date / Time tetracycline Allergy Unknown Verified 03/08/21 13:19 Home Medications Medication Instructions Recorded Confirmed Type zinc 50 mg PO DAILY 09/04/12 03/08/21 History aspirin 81 mg chewable tablet 81 mg PO DAILY 01/25/18 03/08/21 History atorvastatin 80 mg tablet 80 mg PO DAILY #90 tab 02/24/21 03/08/21 Rx amoxicillin-pot clavulanate 1 tab PO BID 7 Days #14 tab 03/05/21 03/08/21 Rx [Augmentin] Exam Const General: cooperative, comfortable and no acute distress Orientation: oriented x3 HENMT Head: normocephalic and atraumatic Resp Effort & Inspection: normal respiratory effort Auscultation: clear to auscultation bilaterally Cardio Rate: regular rate Rhythm: regular rhythm Heart Sounds: no gallops, no murmurs and no rubs GI Inspection: normal to inspection Palpation: soft, no hepatosplenomegaly and tender in the RUQ Auscultation: normal bowel sounds Results Labs Result diagrams: 03/08/21 13:59 03/08/21 13:59 Labs: Laboratory Results - last 24 hr 03/08/21 14:22 COVID-19 Source Nasal/Nares
[2021-03-08 14:36] VITALS: BP 134/70; PULSE 74; RESP 14; TEMP 37.1; O2SAT 97
[2021-03-08 15:14] LABS: COVID-19 PCR Negative (Negative)
[2021-03-08] MEDS: Lactated Ringers 1,000 ML 75 ML IV (15:36)
[2021-03-08 16:08] LABS: Abs Immature Grans 0.12 10^3/uL (0.0-0.06); Absolute Basophil Count 0.03 10^3/uL (0.0-0.2); Absolute Monocyte Count 0.98 10^3/uL (0.1-0.8); Basophils % 0.2; Eosinophils % 0.5; HCT 42.3 % (40.0-50.0); HGB 14.4 g/dL (13.5-17.5); Immature Grans % 0.8; Lymphocytes % 4.9; MCH 30.1 pg (27.0-33.0); MCV 88.3 fL (80-95); MPV 10.4 fL (8.0-11.0); Monocytes % 6.6; Nucleated RBC 0 %; Platelet Count 188 10^3/uL (130-400); RBC 4.79 10^6/uL (4.36-5.78); RDW 13.2 % (11.8-14.1); RDW-SD 42.9 fL; WBC 14.78 10^3/uL (4.4-10.8)
[2021-03-08 16:09] LABS: Absolute Eosinophil Count 0.07 10^3/uL (0.0-0.7); Absolute Lymphocyte Count 0.72 10^3/uL (1.2-3.4); Absolute Neutrophil Count 12.86 10^3/uL (1.2-6.7)
[2021-03-08] MEDS: Pantoprazole 40 MG VIAL IVP (16:12)
[2021-03-08] MEDS: Ketorolac 15 MG/ML VIAL IVP ×2 (16:12→21:28)
[2021-03-08 16:18] VITALS: BP 130/80; PULSE 80; RESP 16; TEMP 37.3; O2SAT 98
[2021-03-08 16:18] LABS: INR 1.2 (0.9-1.1); Prothrombin Time 11.8 sec (9.3-11.0)
[2021-03-08 16:19] LABS: Amylase 369 U/L (25-115)
[2021-03-08 16:25] LABS: ALT 197 U/L (16-63); AST 49 U/L (15-37); Albumin 3.2 g/dL (3.4-5.0); Alkaline Phosphatase 171 U/L (46-116); BUN 28 mg/dL (7-18); CREATININE 1.2 mg/dL (0.70-1.30); Calcium 8.9 mg/dL (8.5-10.1); Chloride 104 mmol/L (98-107); Estimated GFR 58.56 (mL/min/1.73m2); Glucose 123 mg/dL (74-106); Potassium 4.2 mmol/L (3.5-5.1); Sodium 139 mmol/L (136-145); Total Protein 7.4 g/dL (6.4-8.2)
[2021-03-08 16:26] LABS: Lipase 1679 U/L (73-393)
[2021-03-08] MEDS: PIPERACILLIN/TAZO 3.375 GM in Normal Saline 50 ML IVPB ×2 (16:53→23:08)
[2021-03-08 23:25] VITALS: BP 128/71; PULSE 75; RESP 18; TEMP 37.3; O2SAT 95
[2021-03-09] VITALS (12 sets, daily range): BP systolic 106–146; BP diastolic 56–87; PULSE 57–78; RESP 14–21; TEMP 36.1–37.2; O2SAT 94–100; BMI 29.0
[2021-03-09] MEDS: Ketorolac 15 MG/ML VIAL IVP ×3 (01:27→20:38)
[2021-03-09] MEDS: PIPERACILLIN/TAZO 3.375 GM in Normal Saline 50 ML IVPB ×4 (04:42→21:31)
[2021-03-09 07:27] LABS: Abs Immature Grans 0.08 10^3/uL (0.0-0.06); Basophils % 0.1; Eosinophils % 1.4; HCT 37.7 % (40.0-50.0); HGB 12.9 g/dL (13.5-17.5); Immature Grans % 0.6; Lymphocytes % 6.3; MCH 30.1 pg (27.0-33.0); MCHC 34.2 % (32.0-36.0); MCV 87.9 fL (80-95); MPV 10.4 fL (8.0-11.0); Monocytes % 7.8; Neutrophils % 83.8; Nucleated RBC 0 %; Platelet Count 171 10^3/uL (130-400); RBC 4.29 10^6/uL (4.36-5.78); RDW 13.1 % (11.8-14.1); RDW-SD 41.9 fL; WBC 14.54 10^3/uL (4.4-10.8)
[2021-03-09 07:29] LABS: Absolute Basophil Count 0.01 10^3/uL (0.0-0.2); Absolute Lymphocyte Count 0.92 10^3/uL (1.2-3.4); Absolute Monocyte Count 1.13 10^3/uL (0.1-0.8); Absolute Neutrophil Count 12.18 10^3/uL (1.2-6.7)
[2021-03-09] MEDS: Normal Saline Flush 10 ML SYR IVP ×2 (07:35→17:06)
[2021-03-09 07:41] LABS: ALT 133 U/L (16-63); AST 36 U/L (15-37); Albumin 2.6 g/dL (3.4-5.0); Alkaline Phosphatase 140 U/L (46-116); Anion Gap 11.4 mmol/L (3-11); BUN 26 mg/dL (7-18); Bilirubin, Total 1.2 mg/dL (0.2-1.0); CO2 23.6 mmol/L (21.0-32.0); CREATININE 1.4 mg/dL (0.70-1.30); Calcium 8.2 mg/dL (8.5-10.1); Chloride 105 mmol/L (98-107); Estimated GFR 49.01 (mL/min/1.73m2); Glucose 116 mg/dL (74-106); Lipase 634 U/L (73-393); Potassium 3.7 mmol/L (3.5-5.1); Sodium 140 mmol/L (136-145); Total Protein 6.4 g/dL (6.4-8.2)
[2021-03-09] MEDS: Lactated Ringers 1,000 ML 75 ML IV ×2 (08:33→15:49)
--- NOTE | 2021-03-09 12:38 | INITIAL_ITS ---
- If Service Date Differs Date of service: 03/09/21 Time of Service: 12:38 Care Management Initial Assess REASON FOR HOSPITALIZATION:: Acute Cholecystitis PAST MEDICAL HISTORY/PAST SURGICAL HISTORY:: All Active Problems. Left against medical advice (Acute). Biliary colic (Acute). Acute cholecystitis (Acute). Coronary artery disease (Chronic). 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 BPH (benign prostatic hyperplasia) (Chronic). Medical History. STEMI (ST elevation myocardial infarction) (~12/2017). Surgical History. S/P CABG x 4 (12/14/17). ZAMUDIO?LAD, SVG?RCA, SVG skip grafted D1?OM. S/P medial meniscus repair of right knee (09/10/12) PREVIOUS FUNCTIONAL STATUS/SOCIAL/FAMILY SUPPORTS:: Godwin lives in [facility] with his , Halie. He is independent at baseline. CURRENT FUNCTIONAL STATUS:: Godwin was in the OR for most of the day, therefore CM did not have a chance to meet with him. Per report, his surgery went well without immediate complications. CM will continue to follow. ADVANCE DIRECTIVES:: None on file. Has patient been provided with info about the portal/API?: Yes Did the patient sign up for the portal?: No CODE STATUS:: Full Code INSURANCE COVERAGE / FINANCIAL ISSUES:: [employer]/ [employer] CURRENT HOME/COMMUNITY SERVICES/EQUIPMENT:: No current services or equipment. PRIMARY CARE PHYSICIAN:: Sulema Rai POTENTIAL DISCHARGE NEEDS:: Evaluations for further needs, follow up appoin tments. PATIENT/FAMILY EDUCATION NEEDS:: Review discharge instructions and limitations, discussion of self care needs including ask me three. ANTICIPATED BARRIERS TO DISCHARGE:: None identified at this time. TRANSPORTATION:: Via private vehicle by his . PLAN:: Anticipate Godwin will return home when medically cleared. His will drive him home via private vehicle. He will follow up with his PCP and discharge plan of care. CM will continue to follow.
--- NOTE | 2021-03-09 13:11 | ANES.PREOP_ITS ---
General Info Date of Service Date Performed: 03/09/21 Height: 5 ft 6 in Weight: 81.64 kg Body Mass Index (BMI): 29.0 Surgical Procedure: Operation Date: 03/09/21 13:25 Proposed Procedures Side Surgeon p Cholecystectomy Laparoscopic Cholangio Marivel Gardiner MD Actual Procedures Side Surgeon p Cholecystectomy Laparoscopic Cholangio Marivel Gardiner MD Meds Allergies and Home Medications Allergies Allergy/AdvReac Type Severity Reaction Status Date / Time tetracycline Allergy Unknown Verified 03/08/21 13:19 Home Medication Medication Instructions Recorded zinc 50 mg PO DAILY 09/04/12 aspirin 81 mg chewable tablet 81 mg PO DAILY 01/25/18 atorvastatin 80 mg tablet 80 mg PO DAILY #90 tab 02/24/21 amoxicillin-pot clavulanate 1 tab PO BID 7 Days #14 tab 03/05/21 [Augmentin] Current Visit Medications: Current Medications Generic Name Dose Route Start Last Admin Trade Name Freq PRN Reason Stop Dose Admin Sodium Chloride 500 mls @ 0 mls/hr 03/08/21 13:55 Saline 500ml Bag IV PRN PRN As Directed Ringer's Solution 1,000 mls @ 75 mls/hr 03/08/21 14:00 03/09/21 08:33 IV 75 mls/hr INFUSION KARIN Administration Piperacillin Sod/Tazobactam 50 mls @ 100 mls/hr 03/08/21 16:00 03/09/21 13:01 Sod 3.375 gm/ Sodium Chloride IVPB Infused Q6H [facility] Infusion Protocol Acetaminophen 1,000 mg in 100 mls @ 400 mls/hr 03/08/21 14:00 03/09/21 05:09 Ofirmev IVPB Not Given Q8H [facility] IV Miscellaneous Supplies 1 each 03/08/21 14:00 Iv Access IV DIRECTED KARIN Ketorolac Tromethamine 15 mg 03/08/21 14:00 03/09/21 07:35 Ketorolac 15 Mg/Ml Vial IVP 03/13/21 13:59 15 mg Q6H KARIN Administration Morphine Sulfate 2 mg 03/08/21 13:55 Morphine 2 Mg/Ml Syr IVP Q1H PRN PRN Ondansetron HCl 4 mg 03/08/21 13:55 Ondansetron 4 Mg/2 Ml Vial IVP Q4H PRN PRN Pantoprazole Sodium 40 mg 03/08/21 14:00 03/08/21 16:12 Pantoprazole 40 Mg Vial IVP 40 mg Q24H KARIN Administration Sodium Chloride 0 ml 03/08/21 13:55 03/09/21 07:35 Normal Saline Flush 10 Ml Syr IVP 10 ml PRN PRN Administration PFSH Active Problems Active Problems: Problem Status Onset Code Left against medical advice Z53.29 Biliary colic K80.50 Acute cholecystitis K81.0 Coronary artery disease I25.10 BPH (benign prostatic hyperplasia) N40.0 Medical History Medical History STEMI (ST elevation myocardial infarction) (~12/2017) Surgical History Surgical History S/P CABG x 4 (12/14/17) ZAMUDIO?LAD, SVG?RCA, SVG skip grafted D1?OM S/P medial meniscus repair of right knee (09/10/12) Tobacco Smoking/Tobacco Use Status: Former Tobacco Use Alcohol Alcohol Intake: current Alcohol intake frequency: a few times a month Substance Use Substance use: Never Substance use type: does not use Vital Signs and Lab Results Vital Signs Most Recent Vital Signs in EMR: Most Recent Vital Signs Temp Pulse Resp BP Pulse Ox 37.2 C 66 17 136/75 95 03/09/21 07:53 03/09/21 07:53 03/09/21 07:53 03/09/21 07:53 03/09/21 07:53 Lab Results Result Diagrams: 03/09/21 07:15 03/09/21 07:15 Blood Type / Crossmatch: No Data to Display Complete Blood Count: White Blood Count 14.54 10^3/uL (4.4-10.8) H 03/09/21 07:15 03/09/21 Red Blood Count 4.29 10^6/uL (4.36-5.78) L 03/09/21 07:15 03/09/21 Hemoglobin 12.9 g/dL (13.5-17.5) L 03/09/21 07:15 03/09/21 Hematocrit 37.7 % (40.0-50.0) L 03/09/21 07:15 03/09/21 Platelet Count 171 10^3/uL (130-400) 03/09/21 07:15 03/09/21 Complete Metabolic Panel: Sodium Level 140 mmol/L (136-145) 03/09/21 07:15 03/09/21 Potassium Level 3.7 mmol/L (3.5-5.1) 03/09/21 07:15 03/09/21 Chloride Level 105 mmol/L (98-107) 03/09/21 07:15 03/09/21 Carbon Dioxide Level 23.6 mmol/L (21.0-32.0) 03/09/21 07:15 03/09/21 Blood Urea Nitrogen 26 mg/dL (7-18) H 03/09/21 07:15 03/09/21 Creatinine 1.4 mg/dL (0.70-1.30) H 03/09/21 07:15 03/09/21 Estimated GFR/1.73 m2 49.01 (mL/min/1.73m2) 03/09/21 07:15 03/09/21 Magnesium Level 2.0 mg/dL (1.8-2.4) 03/05/21 13:36 03/05/21 Calcium Level 8.2 mg/dL (8.5-10.1) L 03/09/21 07:15 03/09/21 Albumin 2.6 g/dL (3.4-5.0) L 03/09/21 07:15 03/09/21 Glucose Level 116 mg/dL (74-106) H 03/09/21 07:15 03/09/21 Liver Function Panel: Alanine Aminotransferase (ALT/SGPT) 133 U/L (16-63) H 03/09/21 07:15 03/09/21 Aspartate Amino Transf (AST/SGOT) 36 U/L (15-37) 03/09/21 07:15 03/09/21 Coagulation Panel: INR International Normalized Ratio 1.2 (0.9-1.1) H 03/08/21 15:55 03/08/21 Prothrombin Time 11.8 sec (9.3-11.0) H 03/08/21 15:55 03/08/21 Cardiac Panel: Troponin I < 50 ng/L (<or=60) 03/05/21 Arterial Blood Gas: No Data to Display Venous Blood Gas: No Data to Display Pancreas Panel: Amylase Level 369 U/L (25-115) H 03/08/21 15:55 03/08/21 Lipase 634 U/L (73-393) H 03/09/21 07:15 03/09/21 Thyroid Panel: No Data to Display Infectious Disease: Coronavirus (COVID-19)(PCR) Negative (Negative) 03/08/21 14:22 03/08/21 Coronavirus 2019 Source Nasal/Nares 03/08/21 14:22 03/08/21 Blood Cultures: No Data to Display Toxicology Panel: No Data to Display Anesthesia Assessment and Plan Anesthesia History Personal History: No History of Anesthesia Complications Family History: No Family History of Anesthesia Complications Exercise Tolerance Exercise Tolerance: Metabolic Equivalents>4 Pertinent Negatives Pertinent Negatives: No Symptoms of GERD, No Major Cardiovascular Symptoms or Complaints, No Major Pulmonary Symptoms or Complaints and No History of CVA/TIA Cardiac & Pulmonary Exam Cardiac Exam: Normal S1/S2 Heart Sounds Pulmonary Exam: Clear Bilateral Breath Sounds Implantable Cardiac Device Does patient have a Pacemaker or an ICD?: No Airway Exam Known Difficult Airway: No Mallampati Class: 2 Mouth Opening: Normal (> 3cm) Thyromental Distance: Greater than 3 cm Neck Range of Motion: Full ROM Neck Circumference: Normal Teeth Condition: Normal Dentition ASA Classification ASA Score: ASA 3 Emergency Case?: No NPO Status NPO Status: NPO Clears >2 hours, Solids >8 hours Anesthesia Plan Resuscitation Status: Full Code Anesthesia Technique: General Anesthesia Airway Planned: Endotracheal Tube Monitors Used: Standard Monitors
[2021-03-09] MEDS: Bupivacaine 0.25% Pres-Free 30 ML VIAL (13:46)
[2021-03-09] MEDS: Bupivacaine LIPOSOME/PF 133 MG/10 ML VIAL IJ (13:46)
[2021-03-09] MEDS: Cellulose,Oxidized 4X8 1 PACKET MC (14:35)
--- NOTE | 2021-03-09 14:35 | GB_PTH ---
PATIENT: Godwin Ross LOC: U#:[id number] AGE/SX: 80/M ROOM: [id number] RE03/08/[address]: Marivel Gardiner MD : [id number] BED: A DIS: 03/11/2021 SPEC #: [id number] RECD: 03/09/21 17:20 STATUS: SOLANGE RENeil #: [id number] LEATHA: 03/09/21 14:[address]: Marivel Gardiner DEPT: Surgical Specimen RECD BY: Hannah Aldridge ENTERED: 03/09/21 17:20 SP TYPE: GB OTHR DR: GLENYS Byrne Tissues: 1 - GALLBLADDER Procedures: GROSS AND MICRO LEVEL 3 Comments: [id number]
--- NOTE | 2021-03-09 16:09 | W.ANESPOSTOP ---
Postoperative Evaluation Date, Time and Location Date Performed: 03/09/21 Time Performed: 16:09 Patient Location: PACU Vital Signs Most Recent Imported Vital Signs: Most Recent Vital Signs Temp Pulse Resp BP Pulse Ox 36.5 C 78 18 138/72 98 03/09/21 16:00 03/09/21 16:00 03/09/21 16:00 03/09/21 16:00 03/09/21 16:00 Pain Score Most Recent Pain Score: Most Recent Pain Score Pain Level 0 03/09/21 16:00 Assessment Mental Status: Arousable with meaningful communication Airway and Respiratory Function: Patent airway with normal (patient baseline) respiratory exam Cardiovascular Function: Hemodynamically Stable Hydration Status: Adequately Hydrated Nausea & Vomiting: No Nausea or Vomiting Pain: Pain is tolerable per patient Peripheral Nerve Block: Patient did not receive a nerve block
--- NOTE | 2021-03-09 16:14 | ROE_ITS ---
Date of service: 03/09/21 Time of Service: 13:46 Operative Note Operative Note DATE OF PROCEDURE: 03/09/21 PRE-OP DIAGNOSIS: Acute Cholecystitis POST-OP DIAGNOSIS: other (Acute on Chronic Cholecystitis) PROCEDURE: Laparoscopic CHolecystectomy SURGEON: Marivel Gardiner INTERACTIVE [employer] MARKETING DIRECTOR: Cristina Jc ANESTHESIA TYPE: General LMA/ETT Refer to Anesthesia Record ESTIMATED BLOOD LOSS: 30 PATHOLOGY: other (Gallbladder and content) COMPLICATIONS: None Patient was transported to: PACU Patient's condition: stable Indications: Mr. Cody bal 10-year-old gentleman with acute cholecystitis who comes into the office today after leaving AMA from the emergency department on the . I discussed with him the risks of cholecystitis and that I would recommend admission today for IV fluids, IV antibiotics, IV pain medications and plan for laparoscopic cholecystectomy tomorrow. He may need an ERCP done done at [facility] after his surgery. Patient agrees to admission. I will recheck his labs as well and see where were out with his bilirubin and white count. Laparoscopic Cholecystectomy with cholangiogram Risks, benefits, complications were reviewed with the patient in the office. Complications include but are not limited to bleeding, infection, injury to stomach, small bowel and large bowel, injury to the pancreas, injury to the common bile duct necessitating drainage and referral to tertiary center for repair, bile leak, adverse reactions to the medications, complications of intubation including a sore throat or injury to the uvula, LA, stroke and even . Questions were entertained and answered to her satisfaction and she wished to proceed. No guarantees were given or implied. Findings: Thickened Gallbladder with inflammation and adhesions of omentum and stomach to the Gallbladder Procedure Description: After informed consent was obtained the patient was brought to the operating room, placed in a supine position and monitors were applied. SCDs were applied to her lower extremities and he was placed under general anesthesia and intubated without difficulty. The Hair was clipped off his abdomen. His abdomen was then prepped and draped in a sterile fashion using ChloraPrep. At this point a timeout was done and the patient's name, date of , procedure type, allergies to medications, metal in her body, antibiotic and DVT prophylaxis, and fire risk was assessed. At this point Exparel mixed 50/50 with 0.25% Bupivocaine was injected just above the umbilicus into the dermis and subcutaneous tissue. A 5 mm incision was made with an 11 blade. The skin next to the incision was grasped with penetrating towel clamps and while pulling up on the skin a 5 mm port was placed under direct visualization. The abdomen was insuflated and then 3 more ports were placed. A 12 mm port was placed in the subxiphoid area and two 5 mm ports were placed in the right upper quadrant. The liver was inspected and looked normal. The patient's bed was then turned to the left and her head was brought up. The gallbladder was grasped at the body and pushed towards the right shoulder, this allowed me to visualize the body of the gallbladder. The stomach and omentum was noted to be adhered to the body of the gallbladder. The omentum and stomach were gently dissected away from the gallbladder using the oliverio dissector and cautery. The neck was eventually identified. The neck was grasped and pulled towards the right flank and down allowing me to visualize the lymph node. Using a [place] dissector with cautery the lymph node was gently dissected away from the tissues and the fatty tissue was also dissected away. The cystic artery was then identified and dissected 360 degrees. It was located just medial to the cystic duct. It was visualized going into the gallbladder. Once dissected 3 more clips were placed one proximal and 2 distal and the artery was cut. Because of all of the inflammation I was having a hard time identifying the cystic duct. I started dissecting the gallbladder away from the liver top to bottom. I was eventually able to see the duct. The cystic duct was identified it was dilated at the neck with the gallbladder. The duct was noted to be long. The duct was dissected 360 degrees using the [place] dissector in order for me to visualize its entrance into the gallbladder. Liver was noted behind it. There were no other structures right behind. Critical view was achieved. 3 clips were placed one proximal and 2 distal and the cystic duct was cut. Using the hook dissector the gallbladder was then dissected away from the liver bed with difficulty due to the dense adhesions. Part of the posterior gallbladder wall was left on the liver as trying to dissected it would have caused damage to the liver. Once the Gallbladder was removed from the liver bed it was placed into an Endo Catch bag and pulled through the 12 mm port site. The 12 mm port was placed back into the abdomen under direct visualization. The liver bed was inspected no bleeding was noted. There was an area of the left lobe of the liver were the capsule had been pulled off when the omentum was dissected away. A piece of surgicell was applied and left in place. A ray tech was placed into the abdomen and the abdomen was irrigated with 500 cc of NS. The effluent was clear once all of it was suctioned. The ray tech was removed as well as the surgicell. Because of the oozing from the gallbladder fossa and the difficulty of the surgery I placed a 10 Fr drain under the liver and brought it out through one of the 5 mm port sites in the RUQ. The drain was secured with 0 silk suture. Next the 12 mm and the 2 right upper quadrant ports were removed under direct visualization and no bleeding was noted from the fascia. The abdomen was deflated completely and lastly the umbilical port was removed. The 12 mm fascial opening was closed with a 0 vicryl figure of eight suture. The skin was cleaned and the incisions were closed with 4-0 Vicryl. The skin was dried and skin affix was applied over the closed incisions. Needle, instrument and sponge counts were correct at the end of the case. At this point the patient was woken up, extubated and taken back to recovery in stable condition. There were no immediate complications.
[2021-03-09] MEDS: Normal Saline 500 ML 30 ML IV (17:05)
[2021-03-09] MEDS: Pantoprazole 40 MG VIAL IVP (17:05)
[2021-03-09] MEDS: ACETAMINOPHEN 1,000 MG/100 ML BTL 400 MG IVPB (21:27)
[2021-03-10 00:14] VITALS: O2SAT 95
[2021-03-10] MEDS: Ketorolac 15 MG/ML VIAL IVP ×3 (01:27→21:15)
[2021-03-10] MEDS: PIPERACILLIN/TAZO 3.375 GM in Normal Saline 50 ML IVPB ×4 (03:46→23:44)
[2021-03-10 07:02] LABS: Abs Immature Grans 0.06 10^3/uL (0.0-0.06); Absolute Basophil Count 0.03 10^3/uL (0.0-0.2); Absolute Lymphocyte Count 0.72 10^3/uL (1.2-3.4); Absolute Monocyte Count 0.58 10^3/uL (0.1-0.8); Absolute Neutrophil Count 11.43 10^3/uL (1.2-6.7); Basophils % 0.2; HCT 34.3 % (40.0-50.0); HGB 11.4 g/dL (13.5-17.5); Immature Grans % 0.5; Lymphocytes % 5.6; MCH 29.4 pg (27.0-33.0); MCHC 33.2 % (32.0-36.0); MCV 88.4 fL (80-95); MPV 10.6 fL (8.0-11.0); Monocytes % 4.5; Neutrophils % 89.2; Nucleated RBC 0 %; Platelet Count 187 10^3/uL (130-400); RBC 3.88 10^6/uL (4.36-5.78); RDW 13.2 % (11.8-14.1); RDW-SD 42.9 fL; WBC 12.81 10^3/uL (4.4-10.8)
[2021-03-10 07:29] LABS: ALT 142 U/L (16-63); AST 81 U/L (15-37); Albumin 2.3 g/dL (3.4-5.0); Alkaline Phosphatase 120 U/L (46-116); Anion Gap 9.5 mmol/L (3-11); BUN 29 mg/dL (7-18); Bilirubin, Total 0.7 mg/dL (0.2-1.0); CO2 24.5 mmol/L (21.0-32.0); CREATININE 1.6 mg/dL (0.70-1.30); Calcium 8.1 mg/dL (8.5-10.1); Chloride 106 mmol/L (98-107); Estimated GFR 42.01 (mL/min/1.73m2); Glucose 146 mg/dL (74-106); Magnesium 2.3 mg/dL (1.8-2.4); Sodium 140 mmol/L (136-145); Total Protein 6.1 g/dL (6.4-8.2)
[2021-03-10 07:54] VITALS: BP 109/62; PULSE 86; RESP 16; TEMP 36.4; O2SAT 98
[2021-03-10 07:59] VITALS: TEMP 36.4
--- NOTE | 2021-03-10 07:59 | W.PM.PROGNOT ---
Documented by User: DOROTHY Rodriguez 03/10/21 08:07 Date of Service Date of service: 03/10/21 Time of Service: 08:00 Assessment and Plan Assessment and plan (1) Acute cholecystitis: Status: Acute Assessment and plan: POD #1 s/p laproscopic Cholecystectomy Abdominal exam this morning, no signs or peritonitis. Tenderness within RUQ/RLQ with palpation. No fevers over night Will order MRCP today. WBC trending downward, however 12.81 this morning. Continue IV antibiotics Continue IV fluids until PO intake increases MAXIME drain- serosanginous fluid DIET-Fat restricted, will start with breakfast. PAIN- Well controlled. Patient is refusing Tylenol, for he is concerned about the additive effects of taking tylenol over time. Discussed daily limits to prevent liver damage. Strongly encouraged activity OOB, sitting in the chair and ambulation. Subjective Subjective Interval history since last seen: Patient expresses mild tenderness. He slept well over night. He expresses eagerness to eat this morning. Exam Const General: cooperative, healthy appearing and comfortable Orientation: alert and oriented x3 Resp Effort & Inspection: normal respiratory effort, no audible wheezes and no cough GI Palpation: soft, no guarding and tender in the RUQ Other: Incisions are well approximated. Skin a fix in place. Drain in place, serosanginous drainage in bulb. Objective Last Vital Signs Temp 36.4 C L 03/10/21 07:54 Pulse 86 03/10/21 07:54 Resp 16 03/10/21 07:54 BP 109/62 03/10/21 07:54 Pulse Ox 98 03/10/21 07:54 Laboratory Results - last 24 hr 03/10/21 03/10/21 06:20 06:20 WBC 12.81 H RBC 3.88 L Hgb 11.4 L Hct 34.3 L MCV 88.4 MCH 29.4 MCHC 33.2 RDW 13.2 Plt Count 187 MPV 10.6 Immature Gran % 0.5 Neutrophils % 89.2 Lymphocytes % 5.6 Monocytes % 4.5 Eosinophils % 0.0 Basophils % 0.2 Nucleated RBC % 0 Absolute Neutrophils 11.43 H Absolute Lymphocytes 0.72 L Absolute Monocytes 0.58 Absolute Eosinophils 0.00 Absolute Basophils 0.03 Sodium 140 Potassium 4.0 Chloride 106 Carbon Dioxide 24.5 Anion Gap 9.5 BUN 29 H Creatinine 1.6 H Estimated GFR/1.73 m2 42.01 Glucose 146 H Calcium 8.1 L Magnesium 2.3 Total Bilirubin 0.7 AST 81 H ALT 142 H Alkaline Phosphatase 120 H Total Protein 6.1 L Albumin 2.3 L Documented by User: Sofie Haney DO 03/10/21 17:10 Assessment and Plan Assessment and plan (1) Acute cholecystitis: Status: Acute Assessment and plan: Patient seen and examined agree with above. Continue IV antibiotics. MRCP does not show any stones or any sign of bile leak Continue drain until tomorrow and possibly DC at that time. There is no bile coming out of the drain today Supportive care Hopefully DC in a.m.
[2021-03-10] MEDS: Normal Saline Flush 10 ML SYR IVP ×3 (08:00→15:30)
[2021-03-10] MEDS: Lactated Ringers 1,000 ML 75 ML IV (09:04)
--- NOTE | 2021-03-10 12:10 | DI.MRI_ITS ---
Exam(s) MR ABDOMEN WO EXAM: MR ABDOMEN WO CLINICAL HISTORY: s/p cholecystectomy with cholelithiasis TECHNIQUE: Multiplanar multisequence MRA of the Abdomen was performed. COMPARISON: CT CT CHEST/ABD/PEL W from 03/05/2021 FINDINGS: Liver: Unremarkable. Pancreas: Unremarkable. Gallbladder and Bile Ducts: Status post cholecystectomy. There is no intra or extrahepatic biliary d uctal dilatation present. The common duct is within normal limits at less than 4 mm. No intralumina l filling defects are seen to suggest retained stone. There is a small amount of fluid in the gallbl adder fossa. But no focal fluid collection is seen to suggest an abscess. Adrenals: Unremarkable. Kidneys: There is a simple cyst again seen in the superior pole of the right kidney. No follow-up is recommended. There are bilateral prominent renal pelves. Spleen: Unremarkable. Bowel: Unremarkable. There is a small hiatal hernia. Aorta: No aneurysmal dilatation. Soft Tissues: A catheter is seen entering the abdominal cavity on the right and descending into the p sheri. The tip of the distal catheter is not identified. Bone: Unremarkable. Lymph Nodes: Unremarkable. Lung bases: Trace bilateral pleural effusions. IMPRESSION: 1. Status post cholecystectomy. No biliary ductal dilatation. No evidence of a retained stone. 2. Findings were discussed with the primary care team on the date of the examination. DATA REPOSITORY:
[2021-03-10 15:24] VITALS: BP 95/54; PULSE 50; RESP 16; TEMP 36.6; O2SAT 97
--- NOTE | 2021-03-10 15:27 | PDOC.CMPRO ---
- If Service Date Differs Date of service: 03/10/21 Time of Service: 15:27 Care Management Progress Note S/O: Godwin remains inpatient at [facility], he had an appetite this morning and remains on IV ABX, and IVF and will have repeat imaging today per MD. CM continues to follow. A: 80 year old male admitted to [facility] on 03/08/20 for acute cholecystitis P: Godwin will return home when medically cleared. His will drive him home via private vehicle. He will follow up with his PCP and discharge plan of care. CM will continue to follow.
[2021-03-10] MEDS: Pantoprazole 40 MG VIAL IVP (15:30)
--- NOTE | 2021-03-10 17:47 | CHAPLAIN ---
Godwin was eating dinner when I visited. He told me had surgery yesterday. We had a brief visit as Dr. Haney came in the check in with Godwin. Godwin said he moved to [place] from [place], like everybody else. I'll try to visit him again tomorrow.
[2021-03-10 18:50] VITALS: BP 128/62; PULSE 76; RESP 18; TEMP 36.3; O2SAT 97
[2021-03-10 23:36] VITALS: BP 113/65; PULSE 56; RESP 56; TEMP 36.2; O2SAT 97
[2021-03-11] MEDS: Lactated Ringers 1,000 ML 75 ML IV (00:49)
[2021-03-11] MEDS: PIPERACILLIN/TAZO 3.375 GM in Normal Saline 50 ML IVPB ×2 (05:54→11:53)
[2021-03-11 07:13] LABS: Abs Immature Grans 0.06 10^3/uL (0.0-0.06); Absolute Eosinophil Count 0.26 10^3/uL (0.0-0.7); Absolute Lymphocyte Count 1.14 10^3/uL (1.2-3.4); Absolute Monocyte Count 0.88 10^3/uL (0.1-0.8); Basophils % 0.4; Eosinophils % 2.3; HCT 32.6 % (40.0-50.0); Immature Grans % 0.5; Lymphocytes % 10.1; MCH 29.6 pg (27.0-33.0); MCHC 33.7 % (32.0-36.0); MCV 87.9 fL (80-95); MPV 10.9 fL (8.0-11.0); Monocytes % 7.8; Neutrophils % 78.9; Nucleated RBC 0 %; Platelet Count 177 10^3/uL (130-400); RBC 3.71 10^6/uL (4.36-5.78); RDW 13.6 % (11.8-14.1); RDW-SD 43.7 fL; WBC 11.28 10^3/uL (4.4-10.8)
[2021-03-11 07:23] LABS: Absolute Basophil Count 0.05 10^3/uL (0.0-0.2)
--- NOTE | 2021-03-11 07:41 | W.PM.PROGNOT ---
Date of Service Date of service: 03/11/21 Time of Service: 07:41 Assessment and Plan Assessment and plan (1) Acute cholecystitis: Status: Acute Assessment and plan: POD #2 s/p laproscopic Cholecystectomy Tolerating PO MAXIME drain- serosanginous fluid; will most likely be removed prior to d/c DIET-Fat restricted PAIN- Patient denies having any pain. Strongly encouraged activity OOB, sitting in the chair and ambulation. Most likely D/C home later today. Subjective Subjective Interval history since last seen: Patient reports that he does not have any abdominal pain. He is eager to be d/c home today. He states that he has been urinating without difficulty and that he has been having loose stools. Exam Const General: cooperative, healthy appearing and comfortable Orientation: alert and oriented x3 Resp Effort & Inspection: normal respiratory effort, no audible wheezes and no cough GI Palpation: soft, no guarding and nontender Other: MAXIME drain- Serosanginous drainage. Objective Last Vital Signs Temp 36.2 C L 03/10/21 23:36 Pulse 56 L 03/10/21 23:36 Resp 56 H 03/10/21 23:36 BP 113/65 03/10/21 23:36 Pulse Ox 97 03/10/21 23:36 Laboratory Results - last 24 hr 03/11/21 06:38 WBC 11.28 H RBC 3.71 L Hgb 11.0 L Hct 32.6 L MCV 87.9 MCH 29.6 MCHC 33.7 RDW 13.6 Plt Count 177 MPV 10.9 Immature Gran % 0.5 Neutrophils % 78.9 Lymphocytes % 10.1 Monocytes % 7.8 Eosinophils % 2.3 Basophils % 0.4 Nucleated RBC % 0 Absolute Neutrophils 8.90 H Absolute Lymphocytes 1.14 L Absolute Monocytes 0.88 H Absolute Eosinophils 0.26 Absolute Basophils 0.05
[2021-03-11 07:44] VITALS: BP 124/64; PULSE 50; RESP 16; TEMP 37; O2SAT 96
[2021-03-11 07:46] LABS: ALT 100 U/L (16-63); AST 42 U/L (15-37); Albumin 2.2 g/dL (3.4-5.0); Alkaline Phosphatase 109 U/L (46-116); Anion Gap 8.3 mmol/L (3-11); BUN 34 mg/dL (7-18); Bilirubin, Total 0.5 mg/dL (0.2-1.0); CO2 25.7 mmol/L (21.0-32.0); CREATININE 1.7 mg/dL (0.70-1.30); Calcium 7.7 mg/dL (8.5-10.1); Chloride 106 mmol/L (98-107); Estimated GFR 39.18 (mL/min/1.73m2); Glucose 97 mg/dL (74-106); Potassium 3.5 mmol/L (3.5-5.1); Sodium 140 mmol/L (136-145); Total Protein 5.7 g/dL (6.4-8.2)
--- NOTE | 2021-03-11 08:34 | W.PM.DS.N ---
Documented by User: Sofie Haney DO 03/11/21 08:40 Date of service: 03/11/21 Time of Service: 08:34 DS: Diagnosis Discharge Diagnosis (1) Acute cholecystitis: Status: Acute Discharge Plan Disposition Patient Disposition: HOME Condition: Good Discharge Details Reason For Visit: Acute Cholecystitis Admit Date/Time: 03/08/21 13:55 Admit Provider: Marivel Gardiner Attending Provider: Marivel Gardiner [facility] Course: Mr. Ross is a pleasant 80 year old male who was admitted with acute cholecystitis on Wednesday 03/08. He underwent Laparoscopic cholecystectomy on Thursday 03/09. HIs surgery was complex due to the acute on chronic inflammation. An MRCP was done the next day to rule out retained stones. The MRCP showed normal common duct and no filling defects. Patient has done well. He is tolerating a low fat diet. He does have diarrhea. WBC count is almost back to normal. Will discharge patient on ANtibiotics to complete a 10 day course and also will give a probiotic and oxycodon for pain Home Meds and New Rx's Prescriptions: New oxycodone 5 mg tablet 5 mg PO Q6H PRNQty: 14 RF: 0 Probiotic Blend 2 billion cell-50 mg capsule 1 cap PO DAILY Qty: 30 RF: 2 Continued atorvastatin 80 mg tablet 80 mg PO DAILY Qty: 90 RF: 4 zinc 50 MG tablet 50 mg PO DAILY RF: 0 amoxicillin-pot clavulanate [Augmentin] 875-125 mg tablet 1 tab PO BID 7 Days Qty: 14 RF: 0 Discontinued aspirin 81 mg tablet,chewable 81 mg PO DAILY RF: 0 Discharge Instructions Additional Instructions: Activity at Home after surgery: 1. Make sure you walk outside at least 4 times per day 2. You should be able to climb a flight of stairs 3. No driving while in pain or taking pain medications 4. No strenuous activity or heavy lifting for 2 weeks (laparoscopic surgery) Diet, Nutrition, & wound healin. Avoid alcohol until after you are recovered from your surgery 2. Make sure to eat plenty of lean protein (meat, fish, eggs, cottage cheese, beans) 3. Eat a variety of fruits and vegetables. Eat plenty of high fiber foods to avoid constipation. 4. Drink plenty of liquids to stay hydrated and avoid constipation Pain Medications: 1. Tylenol 650mg every 6 hours as needed and Ibuprofen 600 mg every 6 hours as needed. You may alternate between the 2 medications every 3 hours 2. If a narcotic has been prescribed take as directed only for breakthrough pain For Constipation: 1. Take Milk of Magnesia or MiraLax as needed for constipation Other: 1. You may shower daily. Do not scrub the incisions 2. Do not soak the incisions for 1 week 3. You may alternate ice and heat as needed for pain and swelling Wound Care: 1. Keep the incisions clean and dry Please call our office if you develop: 1. Fevers >101.5 2. Nausea or Vomiting 3. Worsening pain 4. Redness and thick discharge from the wounds If after hours please call the Hospital at and ask to speak to the on-call surgeon Referrals: Marivel Gardiner MD [ [facility] STAFF PHYSICIAN] - 03/22/21 8:30 am Activity:: see above Equipment/Supplies:: No Equipment Needed Diet:: low fat for 2 weeks Discharge Orders Discharge Orders: Discharge Order (Routine); Ordered 03/11/21 Ordered By: Marivel Gardiner DS: Data Vitals/I&O Vitals and I&O: Vital Signs Temperature 37 C 03/11/21 07:44 Temperature Source Tympanic 03/11/21 07:44 Pulse 50 L 03/11/21 07:44 Pulse Rhythm Regular 03/11/21 02:46 Respiratory Rate 16 03/11/21 07:44 Respiratory Effort 03/11/21 02:46 Respiratory Depth Normal 03/11/21 02:46 Respiratory Pattern Normal 03/11/21 02:46 Blood Pressure 124/64 03/11/21 07:44 Pulse Oximetry 96 03/11/21 07:44 Respiratory End-tidal CO2 33 03/09/21 16:15 Oxygen Delivery Method Room Air 03/11/21 07:44 Oxygen Flow Rate 0 03/11/21 07:44 Pain Level 0 03/11/21 07:44 Intake & Output 03/10/21 03/10/21 03/11/21 11:59 23:59 11:59 Intake Total 1340 / 2440 1100 / 2440 1530 / 1530 Output Total 80 / 515 435 / 515 295 / 295 Balance 1260 / 1925 665 / 1925 1235 / 1235 Intake: IV 1100 / 2200 1100 / 2200 1050 / 1050 Oral 240 / 240 480 / 480 Injectate 0 / 0 Right Abdomen 0 / 0 Output: Drainage 80 / 115 35 / 115 115 / 115 Right Abdomen 80 / 115 35 / 115 115 / 115 Urine 400 / 400 180 / 180 Other: Urine Color Yellow Yellow Urine Appearance Clear Cloudy Clear Urine Odor Normal None Voiding Methods Urinal Urinal Data Completed and Pending Labs on day of discharge: Labs from last 24 hours 03/11/21 03/11/21 06:38 06:38 WBC 11.28 H RBC 3.71 L Hgb 11.0 L Hct 32.6 L MCV 87.9 MCH 29.6 MCHC 33.7 RDW 13.6 Plt Count 177 MPV 10.9 Immature Gran % 0.5 Neutrophils % 78.9 Lymphocytes % 10.1 Monocytes % 7.8 Eosinophils % 2.3 Basophils % 0.4 Nucleated RBC % 0 Absolute Neutrophils 8.90 H Absolute Lymphocytes 1.14 L Absolute Monocytes 0.88 H Absolute Eosinophils 0.26 Absolute Basophils 0.05 Sodium 140 Potassium 3.5 Chloride 106 Carbon Dioxide 25.7 Anion Gap 8.3 BUN 34 H Creatinine 1.7 H Estimated GFR/1.73 m2 39.18 Glucose 97 Calcium 7.7 L Total Bilirubin 0.5 AST 42 H ALT 100 H Alkaline Phosphatase 109 Total Protein 5.7 L Albumin 2.2 L PFSH All Active Problems Left against medical advice (Acute) Biliary colic (Acute) Acute cholecystitis (Acute) Coronary artery disease (Chronic) 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 Sister No problems noted. Maternal Grandfather No problems noted. Maternal Grandmother No problems noted. Paternal Grandfather No problems noted. Paternal Grandmother No problems noted. Social History Smoking/Tobacco Use Status: Former Tobacco Use Smoking risk assessment performed?: Yes Alcohol Intake: current Alcohol Intake frequency: a few times a month Drug use: Never Substance use type: does not use Caregiver/Support person: No Housing: house Communication Needs: None Pets and animals: Yes Pets and animals: cat(s) Sexually active: No Do you think of yourself as: straight/heterosexual Current gender identity: male What is your relationship status?: How often do you talk on the phone with friends or family?: never How often do you get together with friends or relatives?: never How often do you attend mormon or synagogue services?: 1-3 times per year Do you belong to any clubs or organized social groups?: no Panel score (0-1 are the most socially isolated patients): 1 What type of physical activity do you participate in: walking Duration: > 90 minutes/day Frequency: 3-4 times per week Lila/Sikhism: Sikhism Seatbelt use: always Helmet use: No Drive intox or ride w/intox putaway driver: No Do you feel safe in your relationship?: Yes Documented by User: Marivel Gardiner MD 03/11/21 11:22 Discharge Plan Disposition Patient Disposition: HOME Condition: Good Discharge Details Reason For Visit: Acute Cholecystitis Admit Date/Time: 03/08/21 13:55 Admit Provider: Marivel Gardiner Attending Provider: Marivel Gardiner Primary Care Provider: [facility] Course Hospital Course: Mr. Ross is a pleasant 80 year old male who was admitted with acute cholecystitis on Wednesday 03/08. He underwent Laparoscopic cholecystectomy on Thursday 03/09. HIs surgery was complex due to the acute on chronic inflammation. An MRCP was done the next day to rule out retained stones. The MRCP showed normal common duct and no filling defects. Patient has done well. He is tolerating a low fat diet. He does have diarrhea. WBC count is almost back to normal. Will discharge patient on ANtibiotics to complete a 10 day course and also will give a probiotic and oxycodon for pain Home Meds and New Rx's Prescriptions: New oxycodone 5 mg tablet 5 mg PO Q6H PRNQty: 14 RF: 0 Probiotic Blend 2 billion cell-50 mg capsule 1 cap PO DAILY Qty: 30 RF: 2 Continued atorvastatin 80 mg tablet 80 mg PO DAILY Qty: 90 RF: 4 zinc 50 MG tablet 50 mg PO DAILY RF: 0 amoxicillin-pot clavulanate [Augmentin] 875-125 mg tablet 1 tab PO BID 7 Days Qty: 14 RF: 0 Discontinued aspirin 81 mg tablet,chewable 81 mg PO DAILY RF: 0 Discharge Instructions Additional Instructions: Activity at Home after surgery: 1. Make sure you walk outside at least 4 times per day 2. You should be able to climb a flight of stairs 3. No driving while in pain or taking pain medications 4. No strenuous activity or heavy lifting for 2 weeks (laparoscopic surgery) Diet, Nutrition, & wound healin. Avoid alcohol until after you are recovered from your surgery 2. Make sure to eat plenty of lean protein (meat, fish, eggs, cottage cheese, beans) 3. Eat a variety of fruits and vegetables. Eat plenty of high fiber foods to avoid constipation. 4. Drink plenty of liquids to stay hydrated and avoid constipation Pain Medications: 1. Tylenol 650mg every 6 hours as needed and Ibuprofen 600 mg every 6 hours as needed. You may alternate between the 2 medications every 3 hours 2. If a narcotic has been prescribed take as directed only for breakthrough pain For Constipation: 1. Take Milk of Magnesia or MiraLax as needed for constipation Other: 1. You may shower daily. Do not scrub the incisions 2. Do not soak the incisions for 1 week 3. You may alternate ice and heat as needed for pain and swelling Wound Care: 1. Keep the incisions clean and dry Please call our office if you develop: 1. Fevers >101.5 2. Nausea or Vomiting 3. Worsening pain 4. Redness and thick discharge from the wounds If after hours please call the Hospital at and ask to speak to the on-call surgeon Referrals: Marivel Gardiner MD [ [facility] STAFF PHYSICIAN] - 03/22/21 8:30 am Activity:: see above Equipment/Supplies:: No Equipment Needed Diet:: low fat for 2 weeks Discharge Orders Discharge Orders: Discharge Order (Routine); Ordered 03/11/21 Ordered By: Marivel Gardiner DS: Summary Time Spent with Patient providing and/or coordinating discharge services: Greater than 30 minutes Status at Discharge Functional status at discharge: independent ambulation Overall status at discharge: patient is back to baseline Mental Status: mental status grossly normal Speech and Movement: speech and movement normal Mood: congruent mood Affect: normal affect Exam Const General: cooperative, comfortable and no acute distress Orientation: alert and oriented x3 Resp Effort & Inspection: normal respiratory effort GI Inspection: incision (c/d/i) Palpation: soft, no hepatosplenomegaly and nontender Other: Drain removed Psych Mental Status: mental status grossly normal Speech and Movement: speech and movement normal Mood: congruent mood Affect: normal affect PFSH All Active Problems Left against medical advice (Acute) Biliary colic (Acute) Acute cholecystitis (Acute) Coronary artery disease (Chronic) 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 Sister No problems noted. Maternal Grandfather No problems noted. Maternal Grandmother No problems noted. Paternal Grandfather No problems noted. Paternal Grandmother No problems noted. Social History Smoking/Tobacco Use Status: Former Tobacco Use Smoking risk assessment performed?: Yes Alcohol Intake: current Alcohol Intake frequency: a few times a month Drug use: Never Substance use type: does not use Caregiver/Support person: No Housing: house Communication Needs: None Pets and animals: Yes Pets and animals: cat(s) Sexually active: No Do you think of yourself as: straight/heterosexual Current gender identity: male What is your relationship status?: How often do you talk on the phone with friends or family?: never How often do you get together with friends or relatives?: never How often do you attend mormon or synagogue services?: 1-3 times per year Do you belong to any clubs or organized social groups?: no Panel score (0-1 are the most socially isolated patients): 1 What type of physical activity do you participate in: walking Duration: > 90 minutes/day Frequency: 3-4 times per week Lila/Sikhism: Sikhism Seatbelt use: always Helmet use: No Drive intox or ride w/intox putaway driver: No Do you feel safe in your relationship?: Yes
--- NOTE | 2021-03-11 19:01 | PDOC.CMDIS ---
- If Service Date Differs Date of service: 03/11/21 Time of Service: 19:01 LACE Index Scoring Tool - Questions: Length of Stay (in days): 3 Acuity (Admit via E.D.?): No E.D. Visits: 2 - Answers: Total Score: 5 Risk of Readmission: Low Risk Care Management Discharge Reason for Hospitalization: Acute Cholecystitis Discharge Plan: Godwin returned home today with no new services. He was driven home by his via private vehicle. He will follow up with his PCP and discharge plan of care. Patient/Family Education Needs: Review discharge instructions and limitations, discussion of self care needs including ask me three.
== END 2021-03-11 13:04 | disposition home or self-care (01) | DRG 419 ==
PROVIDERS: Admitting Provider Surgery; PCP Nurse Practitioner Family; Visit Provider Surgery
PROC: 0FT44ZZ Resection of Gallbladder, Percutaneous Endoscopic Approach (ICD-10-PCS; CPT 47563; principal; 2021-03-09 13:15)
DX: K81.2 Acute cholecystitis with chronic cholecystitis (principal); I25.10 Atherosclerotic heart disease of native coronary artery without angina pectoris; N40.0 Benign prostatic hyperplasia without lower urinary tract symptoms; I25.2 Old myocardial infarction; Z95.1 Presence of aortocoronary bypass graft
CPT/HCPCS: 47563; 36415; 80053; 83690; 87635; 99222; 74181; 82150; 83735; 85025; 85610; 88304; J0131; J1100; J1885; J2001; J2250; J2405; J2543

== ENCOUNTER → 2021-03-22 12:55 | Outpatient (BNVA) | payer MEDICARE, OTHER, SELFPAY | PROVIDERS: PCP Nurse Practitioner Family; Referring Provider Nurse Practitioner Family; Visit Provider Surgery | DX: Z48.815 Encounter for surgical aftercare following surgery on the digestive system (principal) ==

== ENCOUNTER → 2021-04-28 11:39 | Outpatient (BNVA) | payer MEDICARE, OTHER, SELFPAY | PROVIDERS: PCP Nurse Practitioner Family; Referring Provider Nurse Practitioner Family; Visit Provider Internal Medicine Cardiovascular Disease | DX: I25.810 Atherosclerosis of coronary artery bypass graft(s) without angina pectoris (principal); Z95.1 Presence of aortocoronary bypass graft | CPT/HCPCS: 99213 ==

== ENCOUNTER 2021-07-20 03:56 | Outpatient (CLI) | payer MEDICARE, OTHER, SELFPAY ==
[2021-07-20 14:31] LABS: Calculated LDL 50 mg/dL (<100); Cholesterol 96 mg/dL (<200); HDL Cholesterol 31 mg/dL (40-60); Triglyceride 78 mg/dL (<150)
== END 2021-07-20 03:57 | disposition home or self-care (01) ==
LOC: LBO 03:56
PROVIDERS: PCP Nurse Practitioner Family; Visit Provider Nurse Practitioner Family
DX: I25.10 Atherosclerotic heart disease of native coronary artery without angina pectoris (principal)
CPT/HCPCS: 36415; 80061

== ENCOUNTER 2021-10-16 08:56 | Emergency (ER) | payer MEDICARE, OTHER, SELFPAY ==
[2021-10-16 09:04] VITALS: BP 128/47; PULSE 60; RESP 17; TEMP 37; O2SAT 98
[2021-10-16 09:14] VITALS: RESP 18
--- NOTE | 2021-10-16 09:15 | DI.RAD_ITS ---
Exam(s) XR PORTABLE CHEST AP EXAM: XR PORTABLE CHEST AP CLINICAL HISTORY: PUI, Fever, R/O PNuem[place] TECHNIQUE: 2D digital imaging was performed. COMPARISON: CR XR PORTABLE CHEST AP from 12/13/2017 FINDINGS: Patient has undergone CABG since the prior exam. LUNGS: Suboptimally inflated but clear. No pleural abnormality seen. HEART: Normal size. AORTA: Normal. BONES: Unremarkable for age. Sternal wires. Soft tissues: Unremarkable. IMPRESSION: No acute findings. DATA REPOSITORY: RADIATION DOSE DELIVERED:
[2021-10-16 09:21] VITALS: TEMP 38.8
--- NOTE | 2021-10-16 09:23 | W.ED.GENAD ---
Discharge Plan Disposition Patient Disposition: HOME Condition: Stable Discharge Details Clinical Impression: COVID-19 Primary Care Provider: Sulema Rai ED Provider: Lata Díaz Home Meds and New Rx's Prescriptions: No Action atorvastatin 80 mg tablet 80 mg PO DAILY Qty: 90 4RF aspirin [Adult Aspirin Regimen] 81 mg tablet,delayed release (DR/EC) 81 mg PO DAILY zinc 50 MG tablet 50 mg PO DAILY Discharge Instructions Instructions: COVID-19 (Coronavirus Disease 2019) (ED) Additional Instructions: Please continue to please continue to quarantine and wear a mask for the next 5 to 10 days as per CDC recommendations. Your COVID swab is positive. Please take Tylenol or Ibuprofen with food every 4-6 hours as needed for pain and swelling. Follow up with primary care provider in 3-5 days. Return to ED sooner if any worsening or concerns. Increase oral fluids. Please take a [id number] vitamin D, vitamin C. Stand Alone Forms: POSITIVE COVID-19/NO TESTING Referrals: Sulema Rai, [employer]GE[employer] [Primary Care Provider] - 3 days Medical Decision Making 81-year-old male presents to the ER with 2 days of chills, rigors, body aches, sore throat and sinus congestion. He reports that he has had postnasal drip and has been coughing up postnasal drip. He is not vaccinated for COVID. He is currently right agreed upon initial presentation. Does have a past medical history of STEMI, acute cholecystitis. Temperature retaken by myself 38.8, patient feels warm to the touch and is having rigors. Work-up ordered including blood cultures x2 and lactate. Chest x-ray. COVID flu RSV testing and strep swab ordered. Differential diagnosis includes not limited to URI, viral upper respiratory infection, pneumonia, strep, COVID COVID swab is positive. Patient informed of COVID-positive status he verbalized understanding. He is still adamant that he does not want treatment at this time labs show thrombocytopenia, anemia which is baseline, absolute neutrophils 6.93. BUN and creatinine are elevated. Glucose 119. This text was generated using [employer]comation system, please disregard any oddities of phrase or misspellings. Medical Records Medical records reviewed: Yes I reviewed the patient's medical records. Imaging Data Radiologic Study: Imaging: X-Ray Radiologist's impression: TECHNIQUE: Imaging protocol: Radiologic exam of the chest. Views: 1 view. COMPARISON: 1. CR XR PORTABLE CHEST AP 12/13/2017 8:[address] CHEST/ABD/PEL W 03/05/2021 3:16 PM FINDINGS: Lungs: No focal consolidation. 1 cm rounded left infrahilar opacity, similar to prior chest radiograph from 2018 and likely reflecting vascular prominence when compared to CT chest from 03/05/2021. Pleural spaces: Unremarkable. No pleural effusion. No pneumothorax. Heart/Mediastinum: Unremarkable. No cardiomegaly. Bones/joints: Median sternotomy. Degenerative osseous changes. IMPRESSION: No acute focal consolidation. Thank you for allowing us to participate in the care of your patient. Dictated and Authenticated by: Mookie Toure MD Lab Data Lab results reviewed: Yes I reviewed the patient's lab results. Labs: 10/16/21 11:00 Blood Blood Culture - Pending 10/16/21 10:25 Pharynx Group A Streptococcus Culture - Pending 10/16/21 10:10 Blood Blood Culture - Pending Laboratory Tests Range/Units 10/16/21 10/16/21 10/16/21 09:56 09:56 09:56 WBC (4.4-10.8) 10^3/uL RBC (4.36-5.78) 10^6/uL Hgb (13.5-17.5) g/dL Hct (40.0-50.0) % MCV (80-95) fL MCH (27.0-33.0) pg MCHC (32.0-36.0) % RDW (11.8-14.1) % Plt Count (130-400) 10^3/uL MPV (8.0-11.0) fL Immature Gran % Neutrophils % Lymphocytes % Monocytes % Eosinophils % Basophils % Nucleated RBC % (0.0-0.3) % Absolute Neutrophils (1.2-6.7) 10^3/uL Absolute Lymphocytes (1.2-3.4) 10^3/uL Absolute Monocytes (0.1-0.8) 10^3/uL Absolute Eosinophils (0.0-0.7) 10^3/uL Absolute Basophils (0.0-0.2) 10^3/uL VBG Lactate (0.6-1.4) mmol/L 1.2 Sodium (136-145) mmol/L 139 Potassium (3.5-5.1) mmol/L 3.7 Chloride (98-107) mmol/L 104 Carbon Dioxide (21.0-32.0) mmol/L 27.3 Anion Gap (3-11) mmol/L 7.7 BUN (7-18) mg/dL 29 H Creatinine (0.70-1.30) mg/dL 1.7 H Est GFR (CKD-EPI 2020) (mL/min/1.73m2) 40.50 Glucose (74-106) mg/dL 119 H Calcium (8.5-10.1) mg/dL 7.8 L Magnesium (1.8-2.4) mg/dL 1.7 L Total Bilirubin (0.2-1.0) mg/dL 0.7 AST (15-37) U/L 38 H ALT (16-63) U/L 34 Alkaline Phosphatase (46-116) U/L 69 Total Protein (6.4-8.2) g/dL 6.5 Albumin (3.4-5.0) g/dL 3.2 L COVID-19 Source Nasopharynx SARS-CoV-2 (PCR) (Negative) Positive A Influenza Type A (PCR) (Negative) Negative Influenza Type B (PCR) (Negative) Negative RSV (PCR) (Negative) Negative Range/Units 10/16/21 09:56 WBC (4.4-10.8) 10^3/uL 9.14 RBC (4.36-5.78) 10^6/uL 4.28 L Hgb (13.5-17.5) g/dL 13.1 L Hct (40.0-50.0) % 37.4 L MCV (80-95) fL 87 MCH (27.0-33.0) pg 30.6 MCHC (32.0-36.0) % 35.0 RDW (11.8-14.1) % 13.8 Plt Count (130-400) 10^3/uL 104 L MPV (8.0-11.0) fL 10.5 Immature Gran % 0.3 Neutrophils % 75.8 Lymphocytes % 13.5 Monocytes % 10.2 Eosinophils % 0.0 Basophils % 0.2 Nucleated RBC % (0.0-0.3) % 0.0 Absolute Neutrophils (1.2-6.7) 10^3/uL 6.93 H Absolute Lymphocytes (1.2-3.4) 10^3/uL 1.23 Absolute Monocytes (0.1-0.8) 10^3/uL 0.93 H Absolute Eosinophils (0.0-0.7) 10^3/uL 0.00 Absolute Basophils (0.0-0.2) 10^3/uL 0.02 VBG Lactate (0.6-1.4) mmol/L Sodium (136-145) mmol/L Potassium (3.5-5.1) mmol/L Chloride (98-107) mmol/L Carbon Dioxide (21.0-32.0) mmol/L Anion Gap (3-11) mmol/L BUN (7-18) mg/dL Creatinine (0.70-1.30) mg/dL Est GFR (CKD-EPI 2020) (mL/min/1.73m2) Glucose (74-106) mg/dL Calcium (8.5-10.1) mg/dL Magnesium (1.8-2.4) mg/dL Total Bilirubin (0.2-1.0) mg/dL AST (15-37) U/L ALT (16-63) U/L Alkaline Phosphatase (46-116) U/L Total Protein (6.4-8.2) g/dL Albumin (3.4-5.0) g/dL COVID-19 Source SARS-CoV-2 (PCR) (Negative) Influenza Type A (PCR) (Negative) Influenza Type B (PCR) (Negative) RSV (PCR) (Negative) HPI General Mode of arrival: ambulatory. Date/Time Provider Initiated Documentation: 10/16/21 08:57. Limitations to Documentation: no limitations. Information obtained by: patient, RN notes reviewed and old records reviewed. HPI Narrative: 81-year-old male presents to the ER with 2 days of chills, rigors, body aches, sore throat and sinus congestion. He reports that he has had postnasal drip and has been coughing up postnasal drip. He is not vaccinated for COVID. He is currently right agreed upon initial presentation. Does have a past medical history of STEMI, acute cholecystitis. He states that he does not give consent for treatment for COVID if he is COVID-positive. He denies any dysuria or any other associated symptoms. Denies any nausea vomiting diarrhea. Related Data Home Medications Medication Instructions Recorded Confirmed zinc 50 mg tablet 50 mg PO DAILY 09/04/12 10/16/21 atorvastatin 80 mg tablet 80 mg PO DAILY #90 tabs 02/24/21 10/16/21 aspirin 81 mg tablet,delayed 81 mg PO DAILY 04/28/21 10/16/21 release (Adult Aspirin Regimen) Previous Rx's Medication Instructions Recorded atorvastatin 80 mg tablet 80 mg PO DAILY #90 tabs 02/24/21 Allergies Allergy/AdvReac Type Severity Reaction Status Date / Time tetracycline Allergy Unknown Verified 04/28/21 11:44 General Stated Complaint: GenMedical JERARDO: 3 Review of Systems All systems reviewed & are unremarkable except as noted in HPI and below Constitutional Constitutional: Reports as per HPI, Reports body ache(s) and Reports chills ENT Ears, Nose, Mouth, and Throat: Reports nasal congestion and Reports sore throat Cardiovascular Cardiovascular: Denies chest pain Respiratory Respiratory: Reports cough PFSH All Active Problems (Updated 10/16/21 @ 11:08 by Lata Díaz NP) COVID-19 (Acute) Coronary artery disease (Chronic) 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 Sister No problems noted. Maternal Grandfather No problems noted. Maternal Grandmother No problems noted. Paternal Grandfather No problems noted. Paternal Grandmother No problems noted. Social History Smoking/Tobacco Use Status: Former Tobacco Use Smoking risk assessment performed?: Yes Alcohol Intake: current Alcohol Intake frequency: a few times a month Drug use: Never Substance use type: does not use Caregiver/Support person: No Housing: house Communication Needs: None Pets and animals: Yes Pets and animals: cat(s) Sexually active: No Do you think of yourself as: straight/heterosexual Current gender identity: male What is your relationship status?: How often do you talk on the phone with friends or family?: never How often do you get together with friends or relatives?: never How often do you attend amish or methodist services?: 1-3 times per year Do you belong to any clubs or organized social groups?: no Panel score (0-1 are the most socially isolated patients): 1 What type of physical activity do you participate in: walking Duration: > 90 minutes/day Frequency: 3-4 times per week Lila/Gnosticism: Baptist Seatbelt use: always Helmet use: No Drive intox or ride w/intox service parts driver: No Do you feel safe in your relationship?: Yes Exam Narrative Exam Narrative: Constitutional: Alert and oriented x3. Appears stated age. Normal body habitus. Patient is triggering. Feels warm to the touch Head: Normocephalic, no trauma. Eyes: Pupils PERRL, Red reflex noted, EOM's intact. Eyelids symmetrical without lesions, discharge, or swelling. ENT: Bilateral TM's WNL, External ear normal to inspection, no mastoid TTP, swelling, or erythema, Nasal turbinates WNL, no nasal discharge. Normal dentition, Posterior pharynx erythemic, exudate noted bilaterally, Chest: RRR, Normal S1, S2, distal pulses intact. Resp: Lungs clear to auscultation bilaterally, no wheezes, rales, or rhonchi. Abdomen: Soft, non-distended, Normoactive bowel sounds all 4 quads. Musculoskeletal: Normal gait, 5/5 strength to all four extremities. Skin: No suspicious rashes or lesions. Capillary refill less than 2 sec. Neurologic: Cranial nerves II-XII intact. Alert and oriented x 3. Motor: No deficits noted. Sensory: Intact bilaterally all 4 extremities. Reflexes: DTR's intact bilaterally.. Hematologic/Lymphatic: No ecchymosis, no lymphadenopathy. Course Vital Signs Vital signs: Vital Signs Temperature 37.0 C 10/16/21 09:04 Pulse 60 10/16/21 09:04 Respiratory Rate 17 10/16/21 09:04 Blood Pressure 128/47 L 10/16/21 09:04 Pulse Oximetry 98 10/16/21 09:04 Temperature 38.8 C H 10/16/21 09:21 Temperature Source Tympanic 10/16/21 09:21 Pulse 60 10/16/21 09:04 Respiratory Rate 18 10/16/21 09:14 Respiratory Effort Non-Labored 10/16/21 09:14 Respiratory Depth Normal 10/16/21 09:14 Respiratory Pattern Normal 10/16/21 09:14 Blood Pressure 128/47 L 10/16/21 09:04 Blood Pressure Position Supine 10/16/21 09:04 Pulse Oximetry 98 10/16/21 09:04 Oxygen Delivery Method Room Air 10/16/21 09:04 Oxygen Flow Rate 0 10/16/21 09:04 Pain Level 0 10/16/21 09:04
[2021-10-16 10:04] LABS: Lactate 1.2 mmol/L (0.6-1.4)
[2021-10-16 10:07] LABS: Abs Immature Grans 0.03 10^3/uL (0.0-0.06); Absolute Basophil Count 0.02 10^3/uL (0.0-0.2); Absolute Lymphocyte Count 1.23 10^3/uL (1.2-3.4); Absolute Monocyte Count 0.93 10^3/uL (0.1-0.8); Absolute Neutrophil Count 6.93 10^3/uL (1.2-6.7); Basophils % 0.2; HCT 37.4 % (40.0-50.0); HGB 13.1 g/dL (13.5-17.5); Immature Grans % 0.3; Lymphocytes % 13.5; MCH 30.6 pg (27.0-33.0); MCV 87 fL (80-95); MPV 10.5 fL (8.0-11.0); Monocytes % 10.2; Neutrophils % 75.8; Platelet Count 104 10^3/uL (130-400); RBC 4.28 10^6/uL (4.36-5.78); RDW 13.8 % (11.8-14.1); RDW-SD 44.1 fL; WBC 9.14 10^3/uL (4.4-10.8)
[2021-10-16] MEDS: Normal Saline 500 ML IV (10:14)
[2021-10-16] MEDS: Acetaminophen 500 MG TAB 1000 MG PO (10:15)
--- NOTE | 2021-10-16 10:19 | DI.VRAD_ITS ---
PROCEDURE INFORMATION: Exam: XR Chest Exam date and time: 10/16/2021 9:48 AM Age: 81 years old Clinical indication: Other: Pui, fever, R/O pnuemonia TECHNIQUE: Imaging protocol: Radiologic exam of the chest. Views: 1 view. COMPARISON: 1. CR XR PORTABLE CHEST AP 12/13/2017 8:[address] CHEST/ABD/PEL W 03/05/2021 3:16 PM FINDINGS: Lungs: No focal consolidation. 1 cm rounded left infrahilar opacity, similar to prior chest radiograph from 2018 and likely reflecting vascular prominence when compared to CT chest from 03/05/2021. Pleural spaces: Unremarkable. No pleural effusion. No pneumothorax. Heart/Mediastinum: Unremarkable. No cardiomegaly. Bones/joints: Median sternotomy. Degenerative osseous changes. IMPRESSION: No acute focal consolidation. Dictated and Authenticated by: Mookie Toure MD. Ordering:SHAGUFTA Guido MD
[2021-10-16 10:20] LABS: ALT 34 U/L (16-63); AST 38 U/L (15-37); Albumin 3.2 g/dL (3.4-5.0); Alkaline Phosphatase 69 U/L (46-116); Anion Gap 7.7 mmol/L (3-11); BUN 29 mg/dL (7-18); Bilirubin, Total 0.7 mg/dL (0.2-1.0); CO2 27.3 mmol/L (21.0-32.0); CREATININE 1.7 mg/dL (0.70-1.30); Calcium 7.8 mg/dL (8.5-10.1); Chloride 104 mmol/L (98-107); Glucose 119 mg/dL (74-106); Magnesium 1.7 mg/dL (1.8-2.4); Potassium 3.7 mmol/L (3.5-5.1); Sodium 139 mmol/L (136-145); Total Protein 6.5 g/dL (6.4-8.2)
[2021-10-16 10:42] LABS: Influenza A PCR Negative (Negative); Influenza B PCR Negative (Negative); RSV PCR Negative (Negative)
[2021-10-16 10:46] LABS: Source Nasopharynx
[2021-10-16 10:48] LABS: COVID-19 PCR Positive (Negative)
--- NOTE | 2021-10-17 13:00 | W.ED.FU ---
Date of service: 10/17/21 Time of Service: 13:00 Follow Up Plan: Call made to patient regarding culture results that show positive for gram positive rods. Patient reports he is no longer having fever however he is still having some tremors. He has been taking ibuprofen and zinc. I did discuss my recommendation for him to return to the ER to be evaluated he verbalized understanding and is willing to return.
== END 2021-10-16 11:36 | disposition home or self-care (01) ==
PROVIDERS: Emergency Provider Registered Nurse Emergency; PCP Nurse Practitioner Family
DX: U07.1 COVID-19 (principal); Z28.310 Unvaccinated for COVID-19; Z87.891 Personal history of nicotine dependence; D69.6 Thrombocytopenia, unspecified; D64.9 Anemia, unspecified
CPT/HCPCS: 80053; 87040; 87637; 87880; 99284; 71045; 83605; 83735; 85025; 87081

== ENCOUNTER 2021-10-17 13:48 | Emergency (ER) | payer MEDICARE, OTHER, SELFPAY ==
[2021-10-17] VITALS (9 sets, daily range): BP systolic 92–120; BP diastolic 56–67; PULSE 60–81; RESP 16–18; TEMP 36.3–36.5; O2SAT 96–99
--- NOTE | 2021-10-17 14:16 | W.ED.GENAD ---
Discharge Plan Disposition Patient Disposition: HOME Condition: Good Discharge Details Clinical Impression: COVID-19, Blood bacterial culture positive Primary Care Provider: Sulema Rai ED Provider: Melquiades Ellis Home Meds and New Rx's Prescriptions: New amoxicillin-pot clavulanate 875-125 mg tablet 1 tab PO BID Qty: 14 0RF No Action atorvastatin 80 mg tablet 80 mg PO DAILY Qty: 90 4RF aspirin [Adult Aspirin Regimen] 81 mg tablet,delayed release (DR/EC) 81 mg PO DAILY zinc 50 MG tablet 50 mg PO DAILY Discharge Instructions Instructions: Bacteremia (ED), COVID-19 (Coronavirus Disease 2019) (ED) Additional Instructions: If you develop any new or worsening symptoms please return immediately to the emergency department for reassessment. Otherwise continue to take your medications as prescribed and follow-up with your primary care provider in the next week. Referrals: Sulema Rai NP [Primary Care Provider] - 1 week Discharge Data Discharge Date/Time-TO BE ENTERED AT DEPARTURE: 10/17/21 17:56 Medical Decision Making <Lata Díaz NP - Last Filed: 10/18/21 08:45> 81-year-old male presents to the ER after return for positive blood cultures with gram-negative rods. Patient is COVID-positive. Patient was not given any antibiotics he reports that his fever has now subsided however he still having tremors and shakes. He has been taking ibuprofen at home and multivitamins including zinc. We will recheck labs and draw another set of blood cultures to rule out contamination. Patient was given Rocephin 1 g here in the ER. Care is to be handed off to oncoming provider Rashaad Ellis pending labs and disposition I do expect this patient to be discharged home. This text was generated using [employer] dictation system, please disregard any oddities of phrase or misspellings. 1600-care assumed from Lata Dorantes NP Patient pending review of labs prior to suspected disposition of home for COVID-positive and positive blood cultures. Labs reviewed and CBC shows a chronic and stable anemia without any significant leukocytosis noted and actually slightly improved from previous visit. CMP does show an elevated BUN with a GFR that is similar to past visits. Will give additional fluids pending remainder of results. Reviewed remainder results including urinalysis which showed no concerning findings. We will start patient on Augmentin after he received Rocephin here to cover for positive blood culture that patient otherwise looks well and stable so there is a slight question of contaminated specimen versus acute infection but will err on side of caution given patient's age and that he is also COVID-positive at this time. After discussion of diagnosis and plan of care patient has no further needs, questions, or concerns and states clear understanding to return to the emergency department for any worsening symptoms. Patient was placed upon follow-up list to follow-up with primary care provider for reassessment later this week. This documentation was generated using [employer] system, please disregard any oddities of phrase or misspellings. Medical Records Medical records reviewed: Yes I reviewed the patient's medical records. <Melquiades Ellis NP - Last Filed: 10/17/21 18:59> 1600-care assumed from Lata Dorantes NP Patient pending review of labs prior to suspected disposition of home for COVID-positive and positive blood cultures. Labs reviewed and CBC shows a chronic and stable anemia without any significant leukocytosis noted and actually slightly improved from previous visit. CMP does show an elevated BUN with a GFR that is similar to past visits. Will give additional fluids pending remainder of results. Reviewed remainder results including urinalysis which showed no concerning findings. We will start patient on Augmentin after he received Rocephin here to cover for positive blood culture that patient otherwise looks well and stable so there is a slight question of contaminated specimen versus acute infection but will err on side of caution given patient's age and that he is also COVID-positive at this time. After discussion of diagnosis and plan of care patient has no further needs, questions, or concerns and states clear understanding to return to the emergency department for any worsening symptoms. Patient was placed upon follow-up list to follow-up with primary care provider for reassessment later this week. This documentation was generated using [employer] system, please disregard any oddities of phrase or misspellings. Lab Data Lab results reviewed: Yes I reviewed the patient's lab results. HPI <Lata Díaz NP - Last Filed: 10/18/21 08:45> General Mode of arrival: ambulatory. Date/Time Provider Initiated Documentation: 10/17/21 13:54. Limitations to Documentation: no limitations. Information obtained by: patient, RN notes reviewed and old records reviewed. HPI Narrative: 81-year-old male COVID-positive presents for second time in 2 days after positive blood culture with gram-negative rods. Patient was called by myself to return to the ER for additional evaluation and IV antibiotics. Patient reports that his fever has subsided however he has been taking ibuprofen still has what he describes as tremors. Related Data Home Medications Medication Instructions Recorded Confirmed zinc 50 mg tablet 50 mg PO DAILY 09/04/12 10/17/21 atorvastatin 80 mg tablet 80 mg PO DAILY #90 tabs 02/24/21 10/17/21 aspirin 81 mg tablet,delayed 81 mg PO DAILY 04/28/21 10/17/21 release (Adult Aspirin Regimen) amoxicillin 875 mg-potassium 1 tab PO BID #14 tabs 10/17/21 clavulanate 125 mg tablet Previous Rx's Medication Instructions Recorded atorvastatin 80 mg tablet 80 mg PO DAILY #90 tabs 02/24/21 amoxicillin 875 mg-potassium 1 tab PO BID #14 tabs 10/17/21 clavulanate 125 mg tablet Allergies Allergy/AdvReac Type Severity Reaction Status Date / Time tetracycline Allergy Unknown Verified 10/17/21 14:01 General Stated Complaint: GenMedical JERARDO: 3 Review of Systems <Lata Díaz NP - Last Filed: 10/18/21 08:45> All systems reviewed & are unremarkable except as noted in HPI and below PFSH <Lata Díaz NP - Last Filed: 10/18/21 08:45> All Active Problems (Updated 10/17/21 @ 17:43 by Melquiades Ellis NP) COVID-19 (Acute) Blood bacterial culture positive (Acute) Coronary artery disease (Chronic) 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 Sister No problems noted. Maternal Grandfather No problems noted. Maternal Grandmother No problems noted. Paternal Grandfather No problems noted. Paternal Grandmother No problems noted. Social History Smoking/Tobacco Use Status: Former Tobacco Use Smoking risk assessment performed?: Yes Alcohol Intake: current Alcohol Intake frequency: a few times a month Drug use: Never Substance use type: does not use Caregiver/Support person: No Housing: house Communication Needs: None Pets and animals: Yes Pets and animals: cat(s) Sexually active: No Do you think of yourself as: straight/heterosexual Current gender identity: male What is your relationship status?: How often do you talk on the phone with friends or family?: never How often do you get together with friends or relatives?: never How often do you attend restoration or yarsani services?: 1-3 times per year Do you belong to any clubs or organized social groups?: no Panel score (0-1 are the most socially isolated patients): 1 What type of physical activity do you participate in: walking Duration: > 90 minutes/day Frequency: 3-4 times per week Lila/Uatsdin: Anglican Seatbelt use: always Helmet use: No Drive intox or ride w/intox buggy driver: No Do you feel safe at home: Yes Do you feel safe in your relationship?: Yes Exam <Lata Díaz NP - Last Filed: 10/18/21 08:45> Narrative Exam Narrative: Constitutional: Alert and oriented x3. Appears stated age. Normal body habitus. Head: Normocephalic, no trauma. Eyes: Pupils PERRL, Red reflex noted, EOM's intact. Eyelids symmetrical without lesions, discharge, or swelling. ENT: Bilateral TM's WNL, External ear normal to inspection, no mastoid TTP, swelling, or erythema, Nasal turbinates WNL, no nasal discharge. Normal dentition, Posterior pharynx WNL, no exudate. Chest: RRR, Normal S1, S2, distal pulses intact. Resp: Lungs clear to auscultation bilaterally, no wheezes, rales, or rhonchi. Abdomen: Soft, non-distended, Normoactive bowel sounds all 4 quads. Musculoskeletal: Normal gait, 5/5 strength to all four extremities. Skin: No suspicious rashes or lesions. Capillary refill less than 2 sec. Neurologic: Cranial nerves II-XII intact. Alert and oriented x 3. Motor: No deficits noted. Sensory: Intact bilaterally all 4 extremities. Reflexes: DTR's intact bilaterally.. Hematologic/Lymphatic: No ecchymosis, no lymphadenopathy. Course <Lata Díaz NP - Last Filed: 10/18/21 08:45> Vital Signs Vital signs: Vital Signs Temperature 36.3 C L 10/17/21 13:58 Pulse 79 10/17/21 13:58 Respiratory Rate 18 10/17/21 13:58 Blood Pressure 120/67 10/17/21 13:58 Pulse Oximetry 97 10/17/21 13:58 Temperature 36.3 C L 10/17/21 13:58 Temperature Source Temporal Artery Scan 10/17/21 13:58 Pulse 79 10/17/21 13:58 Respiratory Rate 18 10/17/21 14:03 Respiratory Effort Non-Labored 10/17/21 14:03 Respiratory Depth Normal 10/17/21 14:03 Respiratory Pattern Normal 10/17/21 14:03 Blood Pressure 120/67 10/17/21 13:58 Blood Pressure Position Sitting 10/17/21 13:58 Pulse Oximetry 97 10/17/21 13:58 Oxygen Delivery Method Room Air 10/17/21 13:58 Oxygen Flow Rate 0 10/17/21 13:58 Sign Out <Lata Díaz NP - Last Filed: 10/18/21 08:45> Sign Out Data: Sign Out Comment: Pending labs and antibiotics most likely DC home. Blood culture positive for Gram negative rods. Covid positive Last updated by Lata Díaz NP at 10/17/21 15:47 PAWSS <Lata Díaz NP - Last Filed: 10/18/21 08:45> Have you Been Recently Intoxicated or Drunk Within the Last 30 days?: No Have you Ever Experienced Previous Episodes of Alcohol Withdrawal?: No Have you ever Experienced Withdrawal Seizures?: No Have you ever Experienced Delirium Tremens(DT)s?: No Have you ever undergone Alcohol Rehabilitation Treatment (i.e, inpt ot outpatient treatment programs)?: No Have you ever Experienced Blackouts?: No Have you ever Combined Alcohol with other Downers within the last 90 days?: No Have you ever Combined Alcohol with any other Substance of Abuse during the last 90 days?: No Positive Blood Alcohol level on Presentation? [PCS.BAL]: No Evidence of Increased Autonomic Activity (i.e. HR>120, tremor, sweating, agitation, nausea)?: No Result: 0 <Melquiades Ellis NP - Last Filed: 10/17/21 18:59> Result: 0
[2021-10-17] MEDS: cefTRIAXone 1 GM/50 ML BAG IVPB (15:21)
[2021-10-17 15:25] LABS: Lactate 1.2 mmol/L (0.6-1.4)
[2021-10-17 15:27] LABS: HCT 36.6 % (40.0-50.0); HGB 12.7 g/dL (13.5-17.5); MCHC 34.7 % (32.0-36.0); MCV 86 fL (80-95); Platelet Count 95 10^3/uL (130-400); RBC 4.24 10^6/uL (4.36-5.78); RDW 13.7 % (11.8-14.1); RDW-SD 42.9 fL; WBC 7.05 10^3/uL (4.4-10.8)
[2021-10-17 15:44] LABS: ALT 38 U/L (16-63); AST 36 U/L (15-37); Alkaline Phosphatase 65 U/L (46-116); Anion Gap 4.2 mmol/L (3-11); BUN 36 mg/dL (7-18); Bilirubin, Total 1.1 mg/dL (0.2-1.0); CO2 28.8 mmol/L (21.0-32.0); CREATININE 1.7 mg/dL (0.70-1.30); Calcium 8.3 mg/dL (8.5-10.1); Chloride 107 mmol/L (98-107); Glucose 143 mg/dL (74-106); Magnesium 2.3 mg/dL (1.8-2.4); Potassium 3.7 mmol/L (3.5-5.1); Sodium 140 mmol/L (136-145); Total Protein 6.3 g/dL (6.4-8.2)
[2021-10-17 15:48] LABS: Absolute Lymphocyte Count 1.13 10^3/uL (1.2-3.4); Absolute Monocyte Count 0.14 10^3/uL (0.1-0.8); Absolute Neutrophil Count 5.78 10^3/uL (1.2-6.7); Bands % 7
[2021-10-17 15:49] LABS: Burr Cells (echinocyte) 3+; Diff Comment Manual Differential
[2021-10-17] MEDS: Normal Saline 500 ML IV (16:15)
[2021-10-17 16:18] LABS: Procalcitonin 4.7 ng/mL
[2021-10-17 17:02] LABS: Bilirubin Negative (Negative); Blood Negative (Negative); Clarity Cloudy (Clear); Glucose Negative (Negative); Ketones Negative (Negative); Leukocyte Esterase Negative (Negative); Nitrite Negative (Negative); Specific Gravity >= 1.030 (1.005-1.025); Urobilinogen 0.2 EU/dL (Up TO 0.2); pH 5.5 (5-8)
[2021-10-17 17:10] LABS: Bacteria Rare HPF (Negative); Crystals Many Amorphous HPF (Negative); Epithelial Cells Rare HPF (Negative); RBC 0-2 HPF (0-2)
[2021-10-17 17:11] LABS: C & S Indicated? No; Casts 20-50 Hyaline LPF (Negative); Mucus Moderate (Negative)
--- NOTE | 2021-10-17 17:47 | NUR.NOTE ---
Nursing Note: Referral faxed to PCP for positive blood cultures/covid +. Within the next week.
[2021-10-17] MEDS: Amox. 875/Clav. 125, 2 TABS/BTL 1 TAB PO (17:51)
--- NOTE | 2021-10-19 14:33 | W.ED.FU ---
Date of service: 10/19/21 Time of Service: 14:34 Follow Up Plan: I received documentation reporting gram-positive rods in his recent blood culture, likely contamination. This is 1 bottle out of 4. I left a message on his home phone number requesting that he call back to the ER
--- NOTE | 2021-10-20 12:53 | W.ED.FU ---
Date of service: 10/20/21 Time of Service: 12:53 Follow Up Plan: I received a phone call from the patient at approximately 1248 on 10-20-2021. He reports that he continues to have moderate fatigue and overall not feeling well but denies any fevers. Patient reports that he has some baseline tremors which may be slightly worse than usual. Patient states that he already came back to the ER with potential positive results and is unsure if he would like to come back now. I did explain to him the severity of illness that can occur with positive cultures and I cannot say with certainty that this is contamination or not. I made it very clear that I recommend returning to the ER for further evaluation. Patient states that he has a few chores to do but he will likely come back this afternoon.
== END 2021-10-17 17:56 | disposition home or self-care (01) ==
PROVIDERS: Registered Nurse Emergency; Emergency Provider Nurse Practitioner Family; PCP Nurse Practitioner Family
DX: U07.1 COVID-19 (principal); B96.89 Other specified bacterial agents as the cause of diseases classified elsewhere; D64.9 Anemia, unspecified; R79.89 Other specified abnormal findings of blood chemistry; Z87.891 Personal history of nicotine dependence
CPT/HCPCS: 80053; 84145; 96361; 96365; 99284; 81003; 81015; 83605; 83735; 85025; J0696

== ENCOUNTER 2021-10-20 15:40 | Emergency (ER) | payer MEDICARE, OTHER, SELFPAY ==
[2021-10-20] VITALS (17 sets, daily range): BP systolic 103–107; BP diastolic 47–59; PULSE 60–82; RESP 16–27; TEMP 37.2; O2SAT 92–95
--- NOTE | 2021-10-20 16:27 | ED.GENADUL_ITS ---
Discharge Plan Disposition Patient Disposition: HOME Condition: Poor Discharge Details Clinical Impression: COVID-19, Thrombocytopenia, Hypocalcemia, Atypical pneumonia, Abnormal pleural fluid Primary Care Provider: Sulema Rai ED Provider: Angella Kelley Home Meds and New Rx's Prescriptions: Continued atorvastatin 80 mg tablet 80 mg PO DAILY Qty: 90 4RF aspirin [Adult Aspirin Regimen] 81 mg tablet,delayed release (DR/EC) 81 mg PO DAILY zinc 50 MG tablet 50 mg PO DAILY amoxicillin-pot clavulanate 875-125 mg tablet 1 tab PO BID Qty: 14 0RF Discharge Instructions Instructions: Viral Syndrome (ED) Additional Instructions: Your labs and imaging are concerning for worsening COVID. However, given the length of time your symptoms have been progressing you are out of the treatment time.. Please continue with the Augmentin. Please encourage hydration. Please encourage deep breathing, ambulation, coughing. You may use Tylenol and/or ibuprofen as needed for any discomfort or fevers. Please monitor your oxygen at home. If your oxygen is less than 90 or you become symptomatically short of breath, please seek care urgently once again. Please follow-up with your primary care beginning of next week for reevaluation. Return sooner with any new or worsening symptoms. Referrals: Sulema Rai, [facility] [Primary Care Provider] - Discharge Data Discharge Date/Time-TO BE ENTERED AT DEPARTURE: 10/20/21 20:25 Medical Decision Making Patient is a pleasant 81-year-old gentleman with past medical history pertinent for CAD with STEMI and subsequent CABG, BPH, status post cholecystectomy and recently diagnosed with COVID-19, presents today with chief complaint of weakness. Patient was seen here 4 days ago with concerns for chills, rigors, body aches, sore throat and sinus congestion. Patient was found to be COVID- positive at that time. Blood cultures were obtained and one of the 4 bottles was positive for a bacillus sub-species which is presumed to be contaminant, no growth in the other 3 bottles. With the positive blood culture, patient came back the following day, was given dose of IV antibiotics and started on Augmentin. What appears the blood cultures were ordered, I do not see that these have been completed. He presents today as he has had persistent weakness and fatigue. Reports taking long naps during the day. States that he does have a diminished appetite but has been eating and drinking fluids. Patient is not on any treatment for COVID-19 as he declined this when he first came in. States he has been taking the Augmentin that was prescribed to him after the concerning blood culture. Patient denies any chest pain, no shortness of breath. States that he has had 3 loose stools today, does not know if there is any blood in them. No change in urinary habits. Denies any lower extremity edema or calf tenderness. On exam, patient appears nontoxic. Blood pressure is hypotensive at 105/47 but this appears to be baseline for the patient. He has crackles appreciated in the left lower lobe. Normal cardiac exam. Abdomen is benign. No lower extremity edema or calf tenderness. Most likely, patient has general malaise associated with his known COVID-19 diagnosis. However, I am concerned that he has a riding bacterial pneumonia based on physical exam. Will obtain portable chest x-ray. Augmentin should be covering this well though. As the patient reports that he had atypical presentation for STEMI, his weakness also has any concern for potential ACS in the setting of acute illness, will obtain EKG and troponin. As this is been going on several days, for the initial troponin is normal, do not feel that repeat will be warranted. Patient denies any exertional shortness of breath, O2 is in the mid 90s, low suspicion for PE, will screen with d-dimer. Patient also was noted to have intermittent tremor to bilateral hands. He states that when he has been ill, such as when he had his STEMI previously, this tremor is brought out. He has no pronator drift, finger-nose intact, [id number] normal, no difficulty reported with ambulation. Labs reviewed. White count has dropped to 2.4, this is down from 7.53 days ago. He does have a lymphocytosis. His platelet count is also dropping and has progressively dropping since he was diagnosed with COVID. Currently 86. D- dimer is elevated at 1800, will move forward with CT for PE, patient agreement with this plan. His lactate is within normal limits. Repeat blood cultures are pending. CMP significant for hypocalcemia which is baseline for the patient. He reports that he did recently stop taking his calcium supplement and will begin this once again. CT reviewed by radiologist: FINDINGS: Pulmonary arteries: No pulmonary emboli. Aorta: No aortic aneurysm. No aortic dissection. Lungs: Moderate patchy opacities in both lung bases, involving lower lobes, right middle lobe and lingula, predominantly ground-glass with some superimposed airspace consolidation in both lower lobes. There could be a component of rounded atelectasis and or compressive atelectasis in both lower lobes as well. Pleural spaces: Trace right greater than left pleural fluid. No pneumothorax. Heart: CABG. Stable mild cardiomegaly. Lymph nodes: Mildly prominent middle mediastinal lymph nodes. Diaphragm: Tiny hiatal hernia. Gallbladder and bile ducts: Cholecystectomy. Bones/joints: Median sternotomy wires. No acute fracture or subluxation. Soft tissues: No suspicious lesions.? IMPRESSION: 1. Moderate in severity lower lobe disease bilaterally suggesting atypical infection or pneumonitis. 2. Trace right greater than left pleural fluid. 3. No pulmonary emboli are seen. 4. Additional findings as described. Discussed findings with the patient. We discussed his COVID diagnosis, expected procedural course. His labs follow typical COVID pattern and I am concerned that he continues to feel poorly and is not improving. He had been initially offered treatment and declined. He reports that his symptoms have been ongoing over 10 days putting him out of the for therapy currently. I did encourage supportive care, encouraged vaccination. I offered admission as he has been declining at home and patient declines. He would prefer to be home with family and return if he worsens. He demonstrates capacity and has been given clear instruction on when to return. I encouragd that he continue with the Augmentin and have close f/u with PCP. All of his questions and concerns were addressed, he is in agreement with this plan. I did speak with patient's at the time of d/c. She will come pick him up. She is aware of the plan and supportive measures. HPI General Date/Time Provider Initiated Documentation: 10/20/21 15:41 . Limitations to Documentation: no limitations . Information obtained by: patient, RN notes reviewed and old records reviewed . History of Present Illness 81 year old M presents to the emergency department with the chief complaint of weakness, described as moderate, Quality is described as other (feeling fatigued, weak), Patient started experiencing this week(s) (reports COVID sxs began about 10 days ago) and it has been constant. No relieving factors improve symptom(s), No exacerbating factors reported . Patient notes cough, diaphoresis, fever/chills, loss of appetite, malaise, shortness of breath and weakness (generalized weakness); denies chest pain, headaches, nausea/vomiting, rash and syncope. Patient did receive the following treatments prior to arrival, other (augmentin) Related Data Home Medications Medication Instructions Recorded Confirmed zinc 50 mg tablet 50 mg PO DAILY 09/04/12 10/20/21 atorvastatin 80 mg tablet 80 mg PO DAILY #90 tabs 02/24/21 10/20/21 aspirin 81 mg tablet,delayed 81 mg PO DAILY 04/28/21 10/20/21 release (Adult Aspirin Regimen) amoxicillin 875 mg-potassium 1 tab PO BID #14 tabs 10/17/21 clavulanate 125 mg tablet Previous Rx's Medication Instructions Recorded atorvastatin 80 mg tablet 80 mg PO DAILY #90 tabs 02/24/21 amoxicillin 875 mg-potassium 1 tab PO BID #14 tabs 10/17/21 clavulanate 125 mg tablet Allergies Allergy/AdvReac Type Severity Reaction Status Date / Time tetracycline Allergy Unknown Verified 10/20/21 16:07 General Stated Complaint: GenMedical JERARDO: 3 Review of Systems Constitutional Constitutional: Reports as per HPI and Denies headache(s) Eyes Eyes: Denies change in vision ENT Ears, Nose, Mouth, and Throat: Denies dizziness and Denies headache(s) Cardiovascular Cardiovascular: Reports as per HPI Respiratory Respiratory: Reports as per HPI, Denies cough, Denies pain on inspiration, Denies pain with cough and Denies wheezing Gastrointestinal Gastrointestinal: Reports as per HPI, Denies abdominal pain, Denies nausea and Denies vomiting Genitourinary Genitourinary: Denies system reviewed and no additional complaints, except as documented (denies change in urinary habits) Integumentary/Breasts Skin/Breast: Reports as per HPI and Denies rash Neurologic Neurologic: Reports as per HPI, Denies dizziness and Denies headache(s) Allergic/Immunologic Allergic/Immunologic: Denies wheezing PFSH All Active Problems (Updated 10/20/21 @ 19:59 by DOROTHY Patton) COVID-19 (Acute) Blood bacterial culture positive (Acute) Thrombocytopenia (Chronic) Hypocalcemia (Acute) Atypical pneumonia (Acute) Abnormal pleural fluid (Acute) Coronary artery disease (Chronic) STEMI 2018 s/p CABG x 4 BPH (benign prostatic hyperplasia) (Chronic) Medical History Acute cholecystitis STEMI (ST elevation myocardial infarction) (~12/2017) Surgical History Hx laparoscopic cholecystectomy (~03/09/21) S/P CABG x 4 (12/14/17) ZAMUDIO?LAD, SVG?RCA, SVG skip grafted D1?OM S/P medial meniscus repair of right knee (09/10/12) Family History Mother , early 70s from [place] Heart disease Myocardial infarction Father Lung cancer Sister Heart disease Hyperlipidemia Hypertension Cancer Unknown type Sister No problems noted. Sister No problems noted. Maternal Grandfather No problems noted. Maternal Grandmother No problems noted. Paternal Grandfather No problems noted. Paternal Grandmother No problems noted. Social History Smoking/Tobacco Use Status: Former Tobacco Use Smoking risk assessment performed?: Yes Alcohol Intake: current Alcohol Intake frequency: a few times a month Drug use: Never Substance use type: does not use Caregiver/Support person: No Housing: house Communication Needs: None Pets and animals: Yes Pets and animals: cat(s) Sexually active: No Do you think of yourself as: straight/heterosexual Current gender identity: male What is your relationship status?: How often do you talk on the phone with friends or family?: never How often do you get together with friends or relatives?: never How often do you attend anabaptist or methodist services?: 1-3 times per year Do you belong to any clubs or organized social groups?: no Panel score (0-1 are the most socially isolated patients): 1 What type of physical activity do you participate in: walking Duration: > 90 minutes/day Frequency: 3-4 times per week Lila/Amish: Hinduism Seatbelt use: always Helmet use: No Drive intox 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 Do you feel safe at home: Yes Do you feel safe in your relationship?: Yes Exam Const General: cooperative, healthy appearing, comfortable, no acute distress and well developed Nutritional Appearance: average body habitus and well nourished Orientation: alert, awake and oriented x3 HENMT Head: normal to inspection Ears: hearing grossly normal bilaterally Mouth: moist mucous membranes Chest Chest: normal inspection of the chest, normal palpation of entire chest wall and no crepitus Resp Effort & Inspection: normal respiratory effort, able to speak in complete sentences and no respiratory distress Auscultation: crackles on the left at the base, no rales, no rhonchi and no wheezes Cardio Rate: regular rate Rhythm: regular rhythm Heart Sounds: S1 normal and S2 normal GI Inspection: normal to inspection, no edema and non-distended Palpation: soft, no hepatosplenomegaly, not firm, no guarding, not rigid and nontender Auscultation: normal bowel sounds Back/Spine/Pelvis Back: no CVA tenderness Thoracic/Lumbar Spine: thoracic and lumbar spine normal to inspection Skin General skin exam: no rashes or lesions noted Trauma: no lacerations or abrasions Neuro General: patient alert, patient awake and patient oriented x3 Cognition: normal cognition Speech: speech normal Gait: normal gait Extrem General: normal to inspection, capillary refill normal, no pedal edema, no calf tenderness and normal gait Psych Appearance: grossly normal and well kempt Mental Status: mental status grossly normal Speech and Movement: speech and movement normal Course Vital Signs Vital signs: Vital Signs Temperature 37.2 C 10/20/21 15:58 Pulse 82 10/20/21 15:58 Respiratory Rate 10/20/21 15:58 Blood Pressure 105/47 L 10/20/21 15:58 Pulse Oximetry 92 10/20/21 15:58 Temperature 37.2 C 10/20/21 15:58 Temperature Source Oral 10/20/21 15:58 Pulse 82 10/20/21 15:58 Respiratory Rate 10/20/21 15:58 Blood Pressure 105/47 L 10/20/21 15:58 Blood Pressure Position Sitting 10/20/21 15:58 Pulse Oximetry 92 10/20/21 15:58 Oxygen Delivery Method Room Air 10/20/21 15:58 Oxygen Flow Rate 0 10/20/21 15:58
--- NOTE | 2021-10-20 16:28 | DI.RAD_ITS ---
Exam(s) XR PORTABLE CHEST AP EXAM: XR PORTABLE CHEST AP CLINICAL HISTORY: crackles LLL, COVID +, increased symptoms TECHNIQUE: 2D digital imaging was performed of the chest. One image was obtained. An AP view was ob tained. COMPARISON: CR,XR XR PORTABLE CHEST AP from 10/16/2021 FINDINGS: MEDIASTINUM: Normal. HEART: Status post CABG. PULMONARY VASCULATURE: Normal. LUNGS: Patchy interstitial infiltrates in the lung bases, left greater than right. PLEURAL SPACE: No pleural effusion or pneumothorax. BONE:Within normal limits for the patient's age. OTHER FINDINGS:Normal. IMPRESSION: Findings compatible with pneumonia. DATA REPOSITORY: RADIATION DOSE DELIVERED:
--- NOTE | 2021-10-20 16:28 | RT.EKG_ITS ---
APPROVED REPORT Exam: Resting ECG Reason for Exam: weakness Patient Location: E HR:63 bpm ECG Measurements Heart Rate [address] 168 P 70 QRSd 105 QRS 214 QT 398 T 118 QTc 408 Conclusion Sinus rhythm...normal P axis, V-rate 60- 99 Low voltage with right axis deviation...low voltage, RAD Consider inferior infarct...Q >35mS in II III aVF Nonspecific T abnormalities, lateral leads...T <-0.10mV, I aVL V5 V6. Sinus. Low voltage. No STEMI. I have reviewed and interpreted ECG and agree with software generated interpretation.
[2021-10-20 17:09] LABS: Abs Immature Grans 0.02 10^3/uL (0.0-0.06); Absolute Eosinophil Count 0.01 10^3/uL (0.0-0.7); Absolute Lymphocyte Count 0.85 10^3/uL (1.2-3.4); Absolute Monocyte Count 0.53 10^3/uL (0.1-0.8); Absolute Neutrophil Count 1.06 10^3/uL (1.2-6.7); Eosinophils % 0.4; HCT 33.4 % (40.0-50.0); HGB 11.5 g/dL (13.5-17.5); Immature Grans % 0.8; Lymphocytes % 34.4; MCHC 34.4 % (32.0-36.0); MCV 87 fL (80-95); MPV 11.1 fL (8.0-11.0); Monocytes % 21.5; Neutrophils % 42.9; Platelet Count 86 10^3/uL (130-400); RBC 3.83 10^6/uL (4.36-5.78); RDW 14.3 % (11.8-14.1); RDW-SD 45.8 fL; WBC 2.47 10^3/uL (4.4-10.8)
[2021-10-20] MEDS: Normal Saline 1,000 ML 1000 ML IV (17:21)
[2021-10-20 17:39] LABS: ALT 41 U/L (16-63); AST 55 U/L (15-37); Albumin 2.6 g/dL (3.4-5.0); Alkaline Phosphatase 60 U/L (46-116); Anion Gap 7.3 mmol/L (3-11); BUN 18 mg/dL (7-18); Bilirubin, Total 0.5 mg/dL (0.2-1.0); CO2 24.7 mmol/L (21.0-32.0); CREATININE 1.1 mg/dL (0.70-1.30); Calcium 7.9 mg/dL (8.5-10.1); Chloride 105 mmol/L (98-107); Estimated GFR 68.29 (mL/min/1.73m2); Glucose 126 mg/dL (74-106); Magnesium 2.1 mg/dL (1.8-2.4); Potassium 3.9 mmol/L (3.5-5.1); Sodium 137 mmol/L (136-145); Total Protein 6.2 g/dL (6.4-8.2); Troponin I < 50 ng/L (<or=60)
[2021-10-20 17:41] LABS: D-Dimer 1808 ng/mlFEU (<500)
--- NOTE | 2021-10-20 18:00 | DI.CT_ITS ---
Exam(s) CT CHEST PE CTA EXAM: CT CHEST PE CTA CLINICAL HISTORY: weakness, fatigue, +d-dimer, +COVID. TECHNIQUE: Imaging Protocol: Axial CT angiography was performed with multi-slice acquisition and mu lti-planar and/or 3D reconstructions. CONTRAST MATERIAL: Intravenous: Omnipaque 350 contrast volume:70 mL COMPARISON: CT CT CHEST/ABD/PEL W from 03/05/2021 CR,XR XR PORTABLE CHEST AP from 10/20/2021 FINDINGS: Tracheobronchial tree: Patent where visualized. Pulmonary parenchyma: Patchy ground-glass opacities are seen in the right middle lobe, left lingular and both lower lobes. There are areas of consolidation in the lower lobes posteriorly. No dynamics ax technical architect ural distortion. Pulmonary Arteries: No evidence of filling defect to suggest pulmonary emboli. Mediastinum and Marta: No dominant adenopathy or fluid collection. The esophagus is unremarkable. Th ere is a small hiatal hernia. Visualized thyroid gland: Unremarkable. Pleura: There may be a very small right pleural effusion. No left pleural effusion or pneumothorax i s present. Heart: Mild cardiomegaly. Coronary artery calcification and/or stents are present. No pericardial e ffusion. Aorta: Thoracic aorta non-dilated. Mild atherosclerosis. Upper abdomen: Status post cholecystectomy. Soft tissues: Unremarkable. Bones: Within normal limits for the patient's age.Sternal wires are in place. IMPRESSION: 1. No evidence of pulmonary embolism, thoracic aortic dissection or aneurysm. 2. Multifocal infiltrates suspicious for pneumonitis or atypical infection. 3. Tiny right pleural effusion. RADIATION DOSE DELIVERED: 429.87mGy.cm Total DLP DATA REPOSITORY: All CT scans at this facility are submitted to the National Radiology Data Registry (NRDR) Dose Index Registry (DIR) with the [employer] (ACR). RADIATION OPTIMIZATION: All CT scans at this facility use at least one of these dose optimization te chniques: automated exposure control; mA and/or kV adjustment per patient size (includes targeted exa ms where dose is matched to clinical indication); or iterative reconstruction.
[2021-10-20] MEDS: Omnipaque 350 MG/ML 100 ML BTL IJ (18:53)
--- NOTE | 2021-10-20 19:23 | DI.VRAD_ITS ---
PROCEDURE INFORMATION: Exam: XR Chest Exam date and time: 10/20/2021 17:37 Age: 81 years old Clinical indication: Other: Crackles lll, covid +, increased symptoms TECHNIQUE: Imaging protocol: Radiologic exam of the chest. Views: 1 view. COMPARISON: XR PORTABLE CHEST AP 10/16/2021 09:48 FINDINGS: Lungs: Patchy interstitial densities left greater than right lung base more pronounced than recent imaging. Pleural spaces: No pleural effusion. No pneumothorax. Heart/Mediastinum: CABG. No significant cardiomegaly. Bones/joints: Median sternotomy wires. No displaced fracture. IMPRESSION: Compatible with atypical infection given the history. Dictated and Authenticated by: Karin Langston MD. Ordering:VAISHALI Perales MD
--- NOTE | 2021-10-20 19:24 | DI.VRAD_ITS ---
PROCEDURE INFORMATION: Exam: CTA Chest With Contrast Exam date and time: 10/20/2021 18:33 Age: 81 years old Clinical indication: Other: Weakness, fatigue, +ddimer, +covid; Prior surgery; Surgery date: 6+ months TECHNIQUE: Imaging protocol: Computed tomographic angiography of the chest with contrast. 3D rendering (Not supervised by radiologist): MIP and/or 3D reconstructed images were created by the technologist. Radiation optimization: All CT scans at this facility use at least one of these dose optimization techniques: automated exposure control; mA and/or kV adjustment per patient size (includes targeted exams where dose is matched to clinical indication); or iterative reconstruction. Contrast material: OMNI 350; Contrast volume: 100 ml; Contrast route: INTRAVENOUS (IV); COMPARISON: CT CHEST/ABD/PEL W 03/05/2021 15:16 FINDINGS: Pulmonary arteries: No pulmonary emboli. Aorta: No aortic aneurysm. No aortic dissection. Lungs: Moderate patchy opacities in both lung bases, involving lower lobes, right middle lobe and lingula, predominantly ground-glass with some superimposed airspace consolidation in both lower lobes. There could be a component of rounded atelectasis and or compressive atelectasis in both lower lobes as well. Pleural spaces: Trace right greater than left pleural fluid. No pneumothorax. Heart: CABG. Stable mild cardiomegaly. Lymph nodes: Mildly prominent middle mediastinal lymph nodes. Diaphragm: Tiny hiatal hernia. Gallbladder and bile ducts: Cholecystectomy. Bones/joints: Median sternotomy wires. No acute fracture or subluxation. Soft tissues: No suspicious lesions. IMPRESSION: 1. Moderate in severity lower lobe disease bilaterally suggesting atypical infection or pneumonitis. 2. Trace right greater than left pleural fluid. 3. No pulmonary emboli are seen. 4. Additional findings as described. Dictated and Authenticated by: Karin Langston MD. Ordering:VAISHALI Perales MD
== END 2021-10-20 20:25 | disposition home or self-care (01) ==
PROVIDERS: Emergency Provider Physician Assistant; PCP Nurse Practitioner Family
DX: U07.1 COVID-19 (principal); D69.6 Thrombocytopenia, unspecified; J18.9 Pneumonia, unspecified organism; E83.51 Hypocalcemia; R84.6 Abnormal cytological findings in specimens from respiratory organs and thorax; R25.1 Tremor, unspecified; D72.820 Lymphocytosis (symptomatic); R79.1 Abnormal coagulation profile; I25.10 Atherosclerotic heart disease of native coronary artery without angina pectoris; I25.2 Old myocardial infarction; Z95.1 Presence of aortocoronary bypass graft; Z79.82 Long term (current) use of aspirin; Z87.891 Personal history of nicotine dependence
CPT/HCPCS: 36415; 71275; 80053; 87040; 93005; 96360; 99285; 71045; 83605; 83735; 84484; 85025; 85379; 93010; J3490

== ENCOUNTER 2021-11-07 02:38 | Outpatient (CLI) | payer MEDICARE, OTHER, SELFPAY ==
[2021-11-07 15:43] LABS: Abs Immature Grans 0.03 10^3/uL (0.0-0.06); Absolute Basophil Count 0.02 10^3/uL (0.0-0.2); Absolute Eosinophil Count 0.17 10^3/uL (0.0-0.7); Absolute Lymphocyte Count 1.38 10^3/uL (1.2-3.4); Absolute Monocyte Count 0.81 10^3/uL (0.1-0.8); Absolute Neutrophil Count 3.44 10^3/uL (1.2-6.7); Basophils % 0.3; Eosinophils % 2.9; HCT 37.6 % (40.0-50.0); HGB 12.7 g/dL (13.5-17.5); Immature Grans % 0.5; Lymphocytes % 23.6; MCH 29.9 pg (27.0-33.0); MCHC 33.8 % (32.0-36.0); MCV 89 fL (80-95); MPV 10.2 fL (8.0-11.0); Monocytes % 13.8; Neutrophils % 58.9; Platelet Count 235 10^3/uL (130-400); RBC 4.25 10^6/uL (4.36-5.78); RDW 14.3 % (11.8-14.1); RDW-SD 45.8 fL; WBC 5.85 10^3/uL (4.4-10.8)
[2021-11-07 16:11] LABS: ALT 28 U/L (16-63); AST 21 U/L (15-37); Albumin 3.3 g/dL (3.4-5.0); Alkaline Phosphatase 109 U/L (46-116); Anion Gap 5.2 mmol/L (3-11); BUN 18 mg/dL (7-18); Bilirubin, Total 0.4 mg/dL (0.2-1.0); CO2 29.8 mmol/L (21.0-32.0); CREATININE 1.2 mg/dL (0.70-1.30); Calcium 8.8 mg/dL (8.5-10.1); Chloride 108 mmol/L (98-107); Estimated GFR 61.52 (mL/min/1.73m2); Glucose 103 mg/dL (74-106); Potassium 4.1 mmol/L (3.5-5.1); Sodium 143 mmol/L (136-145); Total Protein 6.9 g/dL (6.4-8.2)
== END 2021-11-07 02:39 | disposition home or self-care (01) ==
PROVIDERS: PCP Nurse Practitioner Family; Visit Provider Nurse Practitioner Family
DX: U07.1 COVID-19 (principal)
CPT/HCPCS: 36415; 80053; 85025

== ENCOUNTER → 2022-04-27 11:03 | Outpatient (BNVA) | payer MEDICARE, OTHER, SELFPAY | PROVIDERS: PCP Nurse Practitioner Family; Visit Provider Internal Medicine Cardiovascular Disease | DX: I25.810 Atherosclerosis of coronary artery bypass graft(s) without angina pectoris (principal); Z95.1 Presence of aortocoronary bypass graft | CPT/HCPCS: 99213 ==

== ENCOUNTER 2022-06-23 07:24 | Day surgery (SDC) | payer MEDICARE, OTHER, SELFPAY ==
--- NOTE | 2022-06-23 06:36 | ANES.PREOP_ITS ---
General Info Date of Service Date Performed: 06/23/22 Height: 5 ft 6 in Weight: 78.925 kg Body Mass Index (BMI): 28.0 Surgical Procedure: Operation Date: 06/23/22 09:10 Proposed Procedure Side Surgeon p Cataract Extraction with IOL Implant Right Negrito Thibodeaux MD Meds Allergies and Home Medications Allergies Allergy/AdvReac Type Severity Reaction Status Date / Time tetracycline Allergy Unknown Verified 06/23/22 07:31 Home Medication Medication Instructions Recorded zinc 50 mg tablet 50 mg PO DAILY 09/04/12 aspirin 81 mg tablet,delayed 81 mg PO DAILY 04/28/21 release (Adult Aspirin Regimen) atorvastatin 80 mg tablet 80 mg PO DAILY #90 tabs 04/03/22 Current Visit Medications: Current Medications Generic Name Dose Route Start Last Admin Trade Name Freq PRN Reason Stop Dose Admin Acetaminophen 1,000 mg 06/23/22 06:00 Acetaminophen 500 Mg Tab PO 07/23/22 05:59 Q4H PRN PRN Balanced Salt Solution 500 ml 06/23/22 06:00 Balanced Salt Soln.-Plus 500 Ml Bag OP 07/23/22 05:59 DIRECTED KARIN Miscellaneous Medication 0 ml 06/23/22 06:00 Prednisolone 1%, Moxifloxacin 0.5%, Nepafenac 0.1% 5ml Btl OD 07/23/22 05:59 DIRECTED KARIN Miscellaneous Medication 0 ml 06/23/22 06:00 Tropicam./Phenyleph. 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 states f.u with manager wellness Dr. Orellana 04/2022 S/P medial meniscus repair of right knee (09/10/12) Tobacco Smoking/Tobacco Use Status: Former Tobacco Use Alcohol Alcohol Intake: current Alcohol intake frequency: a few times a month Substance Use Substance use: Never Substance use type: does not use Vital Signs and Lab Results Lab Results Blood Type / Crossmatch: No Data to Display Complete Blood Count: No Data to Display Complete Metabolic Panel: No Data to Display Liver Function Panel: No Data to Display Coagulation Panel: No Data to Display Cardiac Panel: No Data to Display Arterial Blood Gas: No Data to Display Venous Blood Gas: No Data to Display Pancreas Panel: No Data to Display Thyroid Panel: No Data to Display Infectious Disease: No Data to Display Blood Cultures: No Data to Display Toxicology Panel: No Data to Display Imaging and Studies Imaging and Studies Study information below may be from another EMR and interpreted by another provider. Please see original notes in EMR for more complete details. EKG Summary: 11/03: sinus, Q II, III, avf. Anesthesia Assessment and Plan Anesthesia History Personal History: No History of Anesthesia Complications Family History: No Family History of Anesthesia Complications Exercise Tolerance Exercise Tolerance: Metabolic Equivalents>4 Cardiac & Pulmonary Exam Cardiac Exam: Normal S1/S2 Heart Sounds Pulmonary Exam: Clear Bilateral Breath Sounds Implantable Cardiac Device Does patient have a Pacemaker or an ICD?: No Airway Exam Known Difficult Airway: No Mallampati Class: 2 Mouth Opening: Normal (> 3cm) Thyromental Distance: Greater than 3 cm Neck Range of Motion: Full ROM Neck Circumference: Normal Teeth Condition: Normal Dentition ASA Classification ASA Score: ASA 3 Emergency Case?: No NPO Status NPO Status: NPO Clears >2 hours, Solids >8 hours Anesthesia Plan Resuscitation Status: Full Code Anesthesia Technique: MAC Anesthesia Airway Planned: Natural Airway Monitors Used: Standard Monitors Preoperative Comments:: 82 yo male for cataract. Sig PMHX: STEMI/CABG x4 2018, former smoker. occ EtOH. Previous Anes: - lap mell, ding 2 grade 1, easy mask. discussed sedation, is okay in holding off, he understands that he can change his mind at any point.
[2022-06-23 07:40] VITALS: BMI 28.0
[2022-06-23] MEDS: Tropicam./Phenyleph. (1/2.5%) 5 ML BTL OD ×3 (07:50→08:11)
[2022-06-23 07:53] VITALS: BP 117/84; PULSE 110; RESP 16; TEMP 36.6; O2SAT 96
[2022-06-23] MEDS: Balanced Salt Soln.-PLUS 500 ML BAG OP (09:09)
[2022-06-23] MEDS: Tetracaine 0.5% 4 ML BTL OD (09:11)
[2022-06-23] MEDS: Lidocaine 1% Pres-Free 5 ML VIAL (09:12)
[2022-06-23] MEDS: Phenylephrine/Lidocaine (15/10) MG/ML 1 ML VIAL (09:13)
[2022-06-23] MEDS: Duovisc Viscoelastic System EACH 1 EACH (09:14)
[2022-06-23] MEDS: Povidone-Iodine Ophth 30 ML BTL ×2 (09:14→09:15)
[2022-06-23] MEDS: Trypan Blue 0.06% 0.5 ML SYR (09:16)
[2022-06-23 09:39] VITALS: BP 110/86; PULSE 82; RESP 18; TEMP 36.8; O2SAT 97
--- NOTE | 2022-06-23 09:40 | ROE_ITS ---
Date of service: 06/23/22 Time of Service: 09:41 Operative Note Operative Note DATE OF PROCEDURE: 06/23/22 PRE-OP DIAGNOSIS: Dense nuclear/posterior subcapsular cataract, right eye POST-OP DIAGNOSIS: same PROCEDURE: Cataract extraction using phacoemulsification with intraocular lens implant, right eye SURGEON: Negrito Thibodeaux ANESTHESIA TYPE: Local By Surgeon and MAC Refer to Anesthesia Record ESTIMATED BLOOD LOSS: 0 PATHOLOGY: none sent COMPLICATIONS: None Patient was transported to: same day Patient's condition: stable Implants: Jose E & Jose E Tecnis Eyhance DIB00 Indications: Progressive visual loss due to cataract, right eye Procedure Description: CATARACT SURGERY OPERATIVE REPORT PREOPERATIVE DIAGNOSIS: 1. Dense nuclear/posterior subcapsular cataract, right eye POSTOPERATIVE DIAGNOSIS: Same OPERATION: 1. Cataract extraction using phacoemulsification with posterior chamber intraocular lens implant, right eye. IOL: IOL Pharmacy Services Director/Model: Jose E & Jose E Tecnis Eyhance DIB00 IOL Power: + 19.0 diopters IOL Serial Number: [id number] Optic Diameter: 6.0mm Haptic/Overall Diameter: 13.0mm PHACO INFO: Tank MyBuilderurion Vision System with OZil and Active Fluidics Cumulative Dispersed Energy (CDE): 25.96 seconds SURGEON: Negrito Thibodeaux MD, SAUNDRA ANESTHESIA: Monitored Anesthesia Care (MAC), with local sub-tenon's anesthetic infiltration COMPLICATIONS: None SPECIMENS: None INDICATIONS FOR PROCEDURE: The patient is an 82-year-old male with history of diminished visual acuity in his right eye secondary to the development of dense nuclear/posterior subcapsular cataract. Visual acuity measured 20/200 in the presence of dense nuclear and posterior subcapsular cataract. He also has macular degeneration of the right eye, which may limit postoperative visual acuity. The option of cataract surgery was offered to the patient and he wished to proceed. PROCEDURE: The correct surgical eye was identified and marked as the right eye and the pupil was dilated in the preoperative area using mydriatics and cycloplegics. The dilated pupil size was 7.0 mm. The patient elected to proceed without oral sedation. The patient was brought to the operating room where cardiopulmonary monitoring was instituted and surgical time-out was performed, confirming the correct operative eye and IOL power. Topical anesthesia was administered and ophthalmic povidone-iodine 5% was instilled into the conjunctival fornices. The nahun-ocular area was prepped with Betadine 10% solution and draped in the usual sterile fashion for intraocular surgery, including an aperture drape. A Tegaderm transparent film dressing was cut in half and used to cover the lashes and lid margins. Care was taken to sequester the lashes and lid margins under the Tegaderm dressing. A lid speculum was placed between the lids of the operative eye and the Tank LuxOR Revalia operating microscope was maneuvered into position. Melecio scissors were then used to make a conjunctival buttonhole approximately 6mm posterior to the limbus in the inferonasal quadrant. Blunt dissection was carried out to expose bare sclera, and a blunt-tipped sub-tenon?s anesthesia cannula was introduced and passed posteriorly along the globe where non- preserved plain lidocaine was injected into posterior sub-Tenon?s space. A sideport knife was used to make a paracentesis port inferotemporally. Intraocular phenylephrine/lidocaine was injected into the anterior chamber. The anterior chamber was filled with viscoelastic. A keratome knife was used to construct a 2-plane near-clear corneal tunnel extending 2.0mm into clear cornea superiortemporally. A flap was raised on the anterior capsule and capsulorhexis forceps were used to complete a continuous curvilinear capsulorhexis of 5.0 mm. Balanced salt solution was then used to perform cortical cleaving hydrodissection and nuclear hydrodelineation until the lens could be freely rotated within the capsular bag. The lens nucleus was then disassembled and removed within the capsular bag and iris plane using phacoemulsification. Residual cortical material was removed using the I/A handpiece. The posterior capsule was carefully polished to remove as much residual lens epithelial cells as safely possible. There was a dense posterior subcapsular plaque centrally and nasally which could not be removed, despite extensive polishing and vacuuming. The capsular bag was then inflated and the anterior chamber deepened with viscoelastic. The lens implant described above was inserted into the capsular bag using the Jose E and Amy Simplicity pre-loaded injector. A Kuglen hook was used to dial the IOL into position. Residual viscoelastic was then removed first from posterior to the IOL, then from the anterior chamber using the I/A handpiece. The lens implant was noted to center nicely within the capsular bag. The incisions were stromally hydrated, and the anterior chamber was reformed using BSS. Then 0.5cc of moxifloxacin 1.0mg/ml were injected into the capsular bag and anterior chamber. The incisions were checked with a Weck spear and found to be secure. Several drops of ophthalmic povidone-iodine 5% were then applied to the eye followed by two drops of Imprimis combination prednisolone/moxifloxacin/nepafenac solution. The drapes were removed and a clear plastic protective eye shield was placed over the eye. The patient was then returned to Same Day Surgery in stable condition.
--- NOTE | 2022-06-23 09:40 | W.PM.DSUDISC ---
Date of service: 06/23/22 Time of Service: 09:40 Discharge Plan Disposition Patient Disposition: Home Discharge Details Attending Provider: Negrito Thibodeaux Primary Care Provider: Sulema Rai Home Meds and New Rx's Prescriptions: No Action aspirin [Adult Aspirin Regimen] 81 mg tablet,delayed release (DR/EC) 81 mg PO DAILY atorvastatin 80 mg tablet 80 mg PO DAILY Qty: 90 3RF zinc 50 MG tablet 50 mg PO DAILY Discharge Instructions Stand Alone Forms: Post-op Topical Cataract, Martine Sauceda (DSU) Discharge Orders Discharge Orders: Discharge Order (Routine); Ordered 06/23/22 Ordered By: Negrito Thibodeaux DS: Diagnosis Discharge Diagnosis (1) Posterior subcapsular age-related cataract, right eye: Status: Resolved (2) Nuclear age-related cataract, right eye: Status: Resolved
--- NOTE | 2022-06-23 10:00 | W.ANESPOSTOP ---
Postoperative Evaluation Date, Time and Location Date Performed: 06/23/22 Time Performed: 09:50 Patient Location: Day Surgery Unit Vital Signs Most Recent Imported Vital Signs: Most Recent Vital Signs Temp Pulse Resp BP Pulse Ox 36.8 C 82 18 110/86 97 06/23/22 09:39 06/23/22 09:39 06/23/22 09:39 06/23/22 09:39 06/23/22 09:39 Pain Score Most Recent Pain Score: Most Recent Pain Score Pain Level 0 06/23/22 09:39 Assessment Mental Status: Awake (Alert & Oriented to Patient Baseline) Airway and Respiratory Function: Patent airway with normal (patient baseline) respiratory exam Cardiovascular Function: Hemodynamically Stable Hydration Status: Adequately Hydrated Nausea & Vomiting: No Nausea or Vomiting Pain: Pt. Denies Any Pain Peripheral Nerve Block: Patient did not receive a nerve block
== END 2022-06-23 10:01 | disposition home or self-care (01) ==
LOC: SUR 07:25
PROVIDERS: PCP Nurse Practitioner Family; Visit Provider Ophthalmology
PROC: (CPT 66984; principal; 2022-06-23 09:00)
DX: H25.041 Posterior subcapsular polar age-related cataract, right eye (principal); H25.11 Age-related nuclear cataract, right eye; I25.10 Atherosclerotic heart disease of native coronary artery without angina pectoris
CPT/HCPCS: 66984; V2632

== ENCOUNTER 2022-07-07 07:21 | Day surgery (SDC) | payer MEDICARE, OTHER, SELFPAY ==
[2022-07-07 07:25] VITALS: BP 123/79; PULSE 77; RESP 16; TEMP 36; O2SAT 97
[2022-07-07] MEDS: Tropicam./Phenyleph. (1/2.5%) 5 ML BTL OS ×3 (07:33→07:45)
--- NOTE | 2022-07-07 07:48 | ANES.PREOP_ITS ---
General Info Date of Service Date Performed: 07/07/22 Height: 5 ft 5 in Weight: 78.9 kg Body Mass Index (BMI): 28.9 Surgical Procedure: Operation Date: 07/07/22 09:10 Proposed Procedure Side Surgeon p Cataract Extraction with IOL Implant Left Negrito Thibodeaux MD Meds Allergies and Home Medications Allergies Allergy/AdvReac Type Severity Reaction Status Date / Time tetracycline Allergy Unknown Verified 07/06/22 10:37 Home Medication Medication Instructions Recorded zinc 50 mg tablet 50 mg PO DAILY 09/04/12 aspirin 81 mg tablet,delayed 81 mg PO DAILY 04/28/21 release (Adult Aspirin Regimen) atorvastatin 80 mg tablet 80 mg PO DAILY #90 tabs 04/03/22 benzonatate 100 mg capsule 100 - 200 mg PO TID PRN cough #60 06/28/22 caps Current Visit Medications: Current Medications Generic Name Dose Route Start Last Admin Trade Name Freq PRN Reason Stop Dose Admin Acetaminophen 1,000 mg 07/07/22 06:00 Acetaminophen 500 Mg Tab PO 08/06/22 05:59 Q4H PRN PRN Balanced Salt Solution 500 ml 07/07/22 06:00 Balanced Salt Soln.-Plus 500 Ml Bag OP 08/06/22 05:59 DIRECTED KARIN Miscellaneous Medication 0 ml 07/07/22 06:00 Prednisolone 1%, Moxifloxacin 0.5%, Nepafenac 0.1% 5ml Btl OS 08/06/22 05:59 DIRECTED KARIN Miscellaneous Medication 0 ml 07/07/22 06:00 07/07/22 07:45 Tropicam./Phenyleph. 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 states f.u with cemetery counselor Dr. Orellana 04/2022 S/P medial meniscus repair of right knee (09/10/12) Tobacco Smoking/Tobacco Use Status: Former Tobacco Use Alcohol Alcohol Intake: current Alcohol intake frequency: a few times a month Substance Use Substance use: Never Substance use type: does not use Vital Signs and Lab Results Vital Signs Most Recent Vital Signs in EMR: Most Recent Vital Signs Temp Pulse Resp BP Pulse Ox 36 C L 77 16 123/79 97 07/07/22 07:25 07/07/22 07:25 07/07/22 07:25 07/07/22 07:25 07/07/22 07:25 Lab Results Blood Type / Crossmatch: No Data to Display Complete Blood Count: No Data to Display Complete Metabolic Panel: No Data to Display Liver Function Panel: No Data to Display Coagulation Panel: No Data to Display Cardiac Panel: No Data to Display Arterial Blood Gas: No Data to Display Venous Blood Gas: No Data to Display Pancreas Panel: No Data to Display Thyroid Panel: No Data to Display Infectious Disease: No Data to Display Blood Cultures: No Data to Display Toxicology Panel: No Data to Display Imaging and Studies Imaging and Studies Study information below may be from another EMR and interpreted by another provider. Please see original notes in EMR for more complete details. EKG Summary: 11/03: sinus, Q II, III, avf. Anesthesia Assessment and Plan Anesthesia History Personal History: No History of Anesthesia Complications Family History: No Family History of Anesthesia Complications Exercise Tolerance Exercise Tolerance: Metabolic Equivalents>4 Pertinent Negatives Pertinent Negatives: No Symptoms of GERD Cardiac & Pulmonary Exam Cardiac Exam: Normal S1/S2 Heart Sounds Pulmonary Exam: Clear Bilateral Breath Sounds Implantable Cardiac Device Does patient have a Pacemaker or an ICD?: No Airway Exam Known Difficult Airway: No Mallampati Class: 2 Mouth Opening: Normal (> 3cm) Thyromental Distance: Greater than 3 cm Neck Range of Motion: Full ROM Neck Circumference: Normal Teeth Condition: Normal Dentition ASA Classification ASA Score: ASA 3 Emergency Case?: No NPO Status NPO Status: NPO Clears >2 hours, Solids >8 hours Anesthesia Plan Resuscitation Status: Full Code Anesthesia Technique: MAC Anesthesia Airway Planned: Natural Airway Monitors Used: Standard Monitors Preoperative Comments:: Followed post cabg dr scott. No recent issues. No sedation recent cat surgery.
[2022-07-07 07:51] VITALS: BMI 28.9
[2022-07-07] MEDS: Povidone-Iodine Ophth 30 ML BTL (09:07)
[2022-07-07] MEDS: Lidocaine 1% Pres-Free 5 ML VIAL (09:07)
[2022-07-07] MEDS: Phenylephrine/Lidocaine (15/10) MG/ML 1 ML VIAL (09:07)
[2022-07-07] MEDS: Duovisc Viscoelastic System EACH 1 EACH (09:07)
[2022-07-07 09:29] VITALS: BP 119/65; PULSE 57; RESP 16; TEMP 36.3; O2SAT 98
--- NOTE | 2022-07-07 09:40 | W.PM.DSUDISC ---
Date of service: 07/07/22 Time of Service: 09:40 Discharge Plan Disposition Patient Disposition: Home Discharge Details Attending Provider: Negrito Thibodeaux Primary Care Provider: Sulema Rai Home Meds and New Rx's Prescriptions: No Action benzonatate 100 mg capsule 100 - 200 mg PO TID PRN (Reason: cough) Qty: 60 0RF Rx Instructions: Take 1-2 capsules by mouth three times a day as needed for cough aspirin [Adult Aspirin Regimen] 81 mg tablet,delayed release (DR/EC) 81 mg PO DAILY atorvastatin 80 mg tablet 80 mg PO DAILY Qty: 90 3RF zinc 50 MG tablet 50 mg PO DAILY Discharge Instructions Stand Alone Forms: Post-op Topical Cataract, Martine Sauceda (DSU) Discharge Orders Discharge Orders: Discharge Order (Routine); Ordered 07/07/22 Ordered By: Negrito Thibodeaux DS: Diagnosis Discharge Diagnosis (1) Nuclear age-related cataract, left eye: Status: Resolved (2) Posterior subcapsular age-related cataract of left eye: Status: Resolved
--- NOTE | 2022-07-07 09:41 | ROE_ITS ---
Date of service: 07/07/22 Time of Service: 09:41 Operative Note Operative Note DATE OF PROCEDURE: 07/07/22 PRE-OP DIAGNOSIS: Nuclear/posterior subcapsular cataract, left eye POST-OP DIAGNOSIS: same PROCEDURE: Cataract extraction using phacoemulsification with intraocular lens implant, left eye SURGEON: Negrito Thibodeaux ANESTHESIA TYPE: Local By Surgeon and MAC Refer to Anesthesia Record PATHOLOGY: none sent COMPLICATIONS: None Patient was transported to: same day Patient's condition: stable Implants: Jose E and Jose E Tecnis Eyhance DIB00 Indications: Progressive decreased vision due to cataract, left eye Procedure Description: CATARACT SURGERY OPERATIVE REPORT PREOPERATIVE DIAGNOSIS: 1. Nuclear/posterior subcapsular cataract, left eye POSTOPERATIVE DIAGNOSIS: Same OPERATION: 1. Cataract extraction using phacoemulsification with posterior chamber intraocular lens implant, left eye. IOL: IOL Shop Firer/Fireman/Model: Jose E & Jose E Tecnis Eyhance DIB00 IOL Power: + 18.0 diopters IOL Serial Number: [id number] Optic Diameter: 6.0 mm Haptic/Overall Diameter: 13.0 mm PHACO INFO: Tank [employer]ur[employer] Vision System with OZil and Active Fluidics Cumulative Dispersed Energy (CDE): 9.83 seconds SURGEON: Negrito Thibodeaux MD, SAUNDRA ANESTHESIA: Monitored A [facility] (MAC), with local sub-tenon's anesthetic infiltration COMPLICATIONS: None SPECIMENS: None INDICATIONS FOR PROCEDURE: The patient is an 82-year-old male with history of diminished visual acuity in his left eye secondary to the development of nuclear/posterior subcapsular cataract. He has already undergone cataract surgery in his right eye and is doing well postoperatively. He now presents for cataract surgery in the left eye. See office notes for detailed information. PROCEDURE: The correct surgical eye was identified and marked as the left eye and the pupil was dilated in the preoperative area using mydriatics and cycloplegics. The dilated pupil size was 7.0 mm. Oral sedation was administered in the form of an Imprimis MKO Melt (midazolam 3mg/ketamine 25mg/ondansetron 2mg). The patient elected to proceed without oral sedation. The patient was brought to the operating room where cardiopulmonary monitoring was instituted and surgical time-out was performed, confirming the correct operative eye and IOL power. Topical anesthesia was administered and ophthalmic povidone-iodine 5% was instilled into the conjunctival fornices. The nahun-ocular area was prepped with Betadine 10% solution and draped in the usual sterile fashion for intraocular surgery, including an aperture drape. A Tegaderm transparent film dressing was cut in half and used to cover the lashes and lid margins. Care was taken to sequester the lashes and lid margins under the Tegaderm dressing. A lid speculum was placed between the lids of the operative eye and the Tank LuxOR Revalia operating microscope was maneuvered into position. Melecio scissors were then used to make a conjunctival buttonhole approximately 6mm posterior to the limbus in the inferonasal quadrant. Blunt dissection was carried out to expose bare sclera, and a blunt-tipped sub-tenon?s anesthesia cannula was introduced and passed posteriorly along the globe where non- preserved plain lidocaine was injected into posterior sub-Tenon?s space. A sideport knife was used to make a paracentesis port. Intraocular phenylephrine/lidocaine was injected int the anterior chamber.. The anterior chamber was filled with viscoelastic. A keratome knife was used to construct a 2-plane near-clear corneal tunnel extending 2.0mm into clear cornea. A flap was raised on the anterior capsule and capsulorhexis forceps were used to complete a continuous curvilinear capsulorhexis of 5.0 mm. Balanced salt solution was then used to perform cortical cleaving hydr odissection and nuclear hydrodelineation until the lens could be freely rotated within the capsular bag. The lens nucleus was then disassembled and removed within the capsular bag and iris plane using phacoemulsification. Residual cortical material was removed using the irrigation/aspiration handpiece. The posterior capsule was carefully polished to remove as much residual lens epithelial cells as safely possible. The capsular bag was then inflated and the anterior chamber deepened with viscoelastic. The lens implant described above was inserted into the capsular bag using the Jose E and Jose E Simplicity pre- loaded injector. A Kuglen hook was used to dial the IOL into position. Residual viscoelastic was then removed first from posterior to the IOL, then from the anterior chamber using the I/A handpiece. The lens implant was noted to center nicely within the capsular bag. The incisions were stromally hydrated, and the anterior chamber was reformed using BSS. Then 0.5cc of moxifloxacin 1.0mg/ml were injected into the capsular bag and anterior chamber. The incisions were checked with a Weck spear and found to be secure. Several drops of ophthalmic povidone-iodine 5% were then applied to the eye followed by two drops of Imprimis combination prednisolone/moxifloxacin/nepafenac solution. The drapes were removed and a clear plastic protective eye shield was placed over the eye. The patient was then returned to Same Day Surgery in stable condition.
--- NOTE | 2022-07-07 09:42 | W.ANESPOSTOP ---
Postoperative Evaluation Date, Time and Location Date Performed: 07/07/22 Time Performed: 09:43 Patient Location: Day Surgery Unit Vital Signs Most Recent Imported Vital Signs: Most Recent Vital Signs Temp Pulse Resp BP Pulse Ox 36 C L 77 16 123/79 97 07/07/22 07:25 07/07/22 07:25 07/07/22 07:25 07/07/22 07:25 07/07/22 07:25 Assessment Mental Status: Awake (Alert & Oriented to Patient Baseline) Airway and Respiratory Function: Patent airway with normal (patient baseline) respiratory exam Cardiovascular Function: Hemodynamically Stable Hydration Status: Adequately Hydrated Nausea & Vomiting: No Nausea or Vomiting Pain: Pt. Denies Any Pain Peripheral Nerve Block: Patient did not receive a nerve block
== END 2022-07-07 09:56 | disposition home or self-care (01) ==
PROVIDERS: PCP Nurse Practitioner Family; Visit Provider Ophthalmology
PROC: (CPT 66984; principal; 2022-07-07 09:00)
DX: H25.12 Age-related nuclear cataract, left eye (principal); H25.042 Posterior subcapsular polar age-related cataract, left eye; Z98.41 Cataract extraction status, right eye
CPT/HCPCS: 66984; V2632

== ENCOUNTER 2023-05-01 07:50 | Outpatient (CLI) | payer MEDICARE, SELFPAY ==
--- NOTE | 2023-05-01 07:45 | RT.EKG_ITS ---
APPROVED REPORT Exam: Resting ECG Reason for Exam: CAD Patient Location: O HR:92 bpm ECG Measurements Heart Rate 92 AXIS CA [id number] P [id number] QRSd 89 QRS 189 QT 488 T 118 QTc 604 Conclusion Sinus rhythm Baseline artifact Multiple ventricular premature complexes...V complexes w/ short R-R intervls Abnormal R-wave progression, late transition...QRS area<0 in V5/V6 Low voltage Nondiagnostic ST-T abnormalities
== END 2023-05-01 07:51 | disposition home or self-care (01) ==
LOC: DI.CARD 07:51
PROVIDERS: PCP Nurse Practitioner Family; Visit Provider Internal Medicine Cardiovascular Disease
DX: I25.810 Atherosclerosis of coronary artery bypass graft(s) without angina pectoris (principal)
CPT/HCPCS: 93010

== ENCOUNTER → 2023-05-01 13:34 | Outpatient (BNVA) | payer MEDICARE, SELFPAY | PROVIDERS: PCP Nurse Practitioner Family; Referring Provider Nurse Practitioner Family; Visit Provider Internal Medicine Cardiovascular Disease | DX: R94.31 Abnormal electrocardiogram [ECG] [EKG] (principal); I25.810 Atherosclerosis of coronary artery bypass graft(s) without angina pectoris; Z95.1 Presence of aortocoronary bypass graft | CPT/HCPCS: 93005; 99213 ==

== ENCOUNTER → 2024-04-29 13:49 | Outpatient (BNVA) | payer MEDICARE, SELFPAY | PROVIDERS: PCP Nurse Practitioner Family; Visit Provider Internal Medicine Cardiovascular Disease | DX: I25.810 Atherosclerosis of coronary artery bypass graft(s) without angina pectoris (principal) | CPT/HCPCS: 99213 ==

== ENCOUNTER 2024-04-30 12:36 | Outpatient (CLI) | payer MEDICARE, SELFPAY ==
[2024-04-30 12:49] LABS: HCT 44.2 % (40.0-50.0); HGB 15.1 g/dL (13.5-17.5); MCH 30.2 pg (27.0-33.0); MCHC 34.2 % (32.0-36.0); MCV 88 fL (80-95); MPV 10.6 fL (8.0-11.0); Platelet Count 153 10^3/uL (130-400); RDW 13.8 % (11.8-14.1); RDW-SD 44.4 fL; WBC 7.81 10^3/uL (4.4-10.8)
[2024-04-30 14:24] LABS: ALT 25 U/L (16-63); AST 20 U/L (15-37); Alkaline Phosphatase 107 U/L (46-116); Anion Gap 5.1 mmol/L (3-11); BUN 22 mg/dL (7-18); Bilirubin, Total 0.6 mg/dL (0.2-1.0); CO2 31.9 mmol/L (21.0-32.0); CREATININE 1.2 mg/dL (0.70-1.30); Calcium 9.5 mg/dL (8.5-10.1); Calculated LDL 47 mg/dL (<100); Chloride 110 mmol/L (98-107); Cholesterol 103 mg/dL (<200); Estimated GFR 60.75 (mL/min/1.73m2); Glucose 98 mg/dL (74-106); HDL Cholesterol 39 mg/dL (>or=40); Potassium 4.2 mmol/L (3.5-5.1); Sodium 147 mmol/L (136-145); Total Protein 6.9 g/dL (6.4-8.2); Triglyceride 88 mg/dL (<150)
== END 2024-04-30 12:37 | disposition home or self-care (01) ==
LOC: LBO 12:37
PROVIDERS: PCP Nurse Practitioner Family; Visit Provider Nurse Practitioner Family
DX: I25.810 Atherosclerosis of coronary artery bypass graft(s) without angina pectoris (principal)
CPT/HCPCS: 36415; 80053; 80061; 85027

== ENCOUNTER 2024-05-15 15:37 | Outpatient (CLI) | payer MEDICARE, SELFPAY ==
[2024-05-15 15:34] LABS: Anion Gap 6.2 mmol/L (3-11); BUN 18 mg/dL (7-18); CO2 29.8 mmol/L (21.0-32.0); CREATININE 1.2 mg/dL (0.70-1.30); Calcium 9.2 mg/dL (8.5-10.1); Chloride 108 mmol/L (98-107); Estimated GFR 60.75 (mL/min/1.73m2); Glucose 91 mg/dL (74-106); Potassium 4.4 mmol/L (3.5-5.1); Sodium 144 mmol/L (136-145)
== END 2024-05-15 15:38 | disposition home or self-care (01) ==
LOC: LBO 15:39
PROVIDERS: PCP Nurse Practitioner Family; Visit Provider Nurse Practitioner Family
DX: E87.0 Hyperosmolality and hypernatremia (principal)
CPT/HCPCS: 36415; 80048